=== PATIENT | female | born 1940 | race Caucasian/White ===

== ENCOUNTER 2017-02-21 07:29 | Day surgery (SDC) | payer MEDICARE, OTHER ==
[~2017-02-21 07:29] MED LIST: Lactated Ringers 1,000 ML IV SCH; Lidocaine 1%/Sod Bicarbonate in NS 8.4% 1 ML Syringe PRN; Sodium Chloride 0.9% 10 ML Syringe FLUSH PRN
--- NOTE | 2017-02-21 07:54 | PCM.PREANE ---
Preanesthetic Assessment - Anesthesia/Transfusion/Family Hx Anesthesia History: No Prior Anesthesia Family History of Anesthesia Reaction: No Transfusion History: Prior Transfusion Without Reaction - Review of Systems General: No Symptoms Pulmonary: No Symptoms Cardiovascular: No Symptoms Gastrointestinal: No Symptoms Neurological: No Symptoms Other: Reports: None - Physical Assessment NPO Status Date: 02/20/17 NPO Status Time: 00:00 Pulse: 91 O2 Sat by Pulse Oximetry: 93 Respiratory Rate: 16 Blood Pressure: 146/77 Temperature: 37.1 C Height: 1.7 m Weight: 62.868 kg ASA Class: 3 Mental Status: Alert & Oriented x3 Airway Class: Mallampati = 1 Dentition: Reports: Dentures Thyro-Mental Finger Breadths: 3 Mouth Opening Finger Breadths: 3 ROM/Head Extension: Full Lungs: Clear to Auscultation, Normal Respiratory Effort, Decreased Breath Sounds Cardiovascular: Regular Rate, Regular Rhythm - Allergies Allergies/Adverse Reactions: Allergies Allergy/AdvReac Type Severity Reaction Status Date / Time doxycycline Allergy Severe Airway Verified 02/18/17 12:20 Tightness Latex, Natural Rubber Allergy Severe Rash Verified 02/18/17 12:20 levofloxacin [From Levaquin] Allergy Severe Airway Verified 02/18/17 12:20 Tightness budesonide [From Symbicort] Allergy Airway Verified 02/18/17 12:20 Tightness formoterol [From Symbicort] Allergy Airway Verified 02/18/17 12:20 Tightness codeine AdvReac Severe Hallucinati Verified 02/18/17 12:20 ons - Anesthesia Plan Pre-Op Medication Ordered: None - Acknowledgements Anesthesia Type Planned: MAC Pt an Appropriate Candidate for the Planned Anesthesia: Yes Alternatives and Risks of Anesthesia Discussed w Pt/Guardian: Yes Pt/Guardian Understands and Agrees with Anesthesia Plan: Yes PreAnesthesia Questionnaire HEENT History: Reports: Sinusitis, Other (See Below) Other HEENT History: dentures, glasses Cardiovascular History: Reports: Heart Failure, High Cholesterol, Hypertension, Other (See Below) Other Cardiovascular History: aortic valve disease, diastolic heart failure, vein leg stripping Respiratory History: Reports: Asthma, COPD Gastrointestinal History: Reports: GI Bleed, Other (See Below) Other Gastrointestinal History: GI bleed Genitourinary History: Reports: None 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 Allergy to latex - Past Surgical History Head Surgeries/Procedures: Reports: None HEENT Surgical History: Reports: Naso-Sinus Surgery, Tonsillectomy Cardiovascular Surgical History: Reports: None Respiratory Surgical History: Reports: None GI Surgical History: Reports: Appendectomy, Colonoscopy Female Surgical History: Reports: Hysterectomy Other Female Surgeries/Procedures: Prior to hysterectomy patient has a mesh to hold uterus in place. 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 Musculoskeletal Surgical History: Reports: None Oncologic Surgical History: Reports: None Dermatological Surgical History: Reports: None - SUBSTANCE USE Smoking Status *Q: Current Every Day Smoker Tobacco Use Within Last Twelve Months: Cigarettes Second Hand Smoke Exposure: No Number of Drinks Per Day: 2 Recreational Drug Use History: No - HOME MEDS Home Medications: Home Meds Albuterol [Ventolin HFA] 2 puff INH QID 02/12/15 [History] Calcium Carbonate/Vitamin D3 [Calcium 600 + Vit D Tablet] 1 each PO BID [History] Cyanocobalamin (Vitamin B12) [Vitamin B12] 500 mcg PO BEDTIME 02/12/15 [History] Fluticasone/Salmeterol [Advair Diskus 250-50] 1 puff PO BID 02/12/15 [History] Furosemide [Lasix] 40 mg PO DAILY 02/12/15 [History] Pravastatin [Pravachol] 40 mg PO DAILY 02/12/15 [History] Ascorbate Calcium [Vitamin C] 500 mg PO DAILY 02/18/17 [History] Denosumab [Prolia] 1 applic SQ ASDIRECTED 02/18/17 [History] Estradiol [Vagifem] 10 mcg VAG ASDIRECTED 02/18/17 [History] diphenhydrAMINE [Benadryl] 25 mg PO BEDTIME PRN 02/18/17 [History] - CURRENT (IN HOUSE) MEDS Current Meds: Current Medications Lactated Ringer's (Ringers, Lactated) 1,000 mls @ 125 mls/hr IV ASDIRECTED MICHELA Stop: 02/21/17 23:00 Lidocaine/Sodium Bicarbonate (Buffered Lidocaine 1% In Ns 8.4%) 0.25 ml .XX ONETIME PRN PRN Reason: Prior to IV Start Stop: 02/21/17 18:00 Sodium Chloride (Saline Flush) 10 ml FLUSH ASDIRECTED PRN PRN Reason: Keep Vein Open Stop: 02/21/17 18:00
[2017-02-21] MEDS ORDERED: Propofol 200 MG/20 ML SDV ONE ×2 (08:24→09:34)
[2017-02-21] MEDS ORDERED: fentaNYL 100 MCG/2 ML SDV ONE (08:24)
[2017-02-21] MEDS ORDERED: Lidocaine 1% 4 ML ONE (08:24)
--- NOTE | 2017-02-21 09:38 | PCM.OPNOTE ---
- General Post-Op/Procedure Note Date of Surgery/Procedure: 02/21/17 Operative Procedure(s): colonoscopy to cecum Findings: see op note Pre Op Diagnosis: rectal bleeding Post-Op Diagnosis: Same Anesthesia Technique: MAC Primary Surgeon: Varun Jackson EBL in mLs: 0 Complications: None Condition: Good
[2017-02-21 11:11] VITALS: BP 124/70
--- NOTE | 2017-02-22 07:27 | OR ---
DATE OF OPERATION: 02/21/2017 SURGEON: Varun Jackson MD PREOPERATIVE DIAGNOSIS: Rectal bleeding. POSTOPERATIVE DIAGNOSIS: Rectal bleeding. OPERATION PERFORMED: Colonoscopy to cecum. FINDINGS: Occasional sigmoid diverticulosis, internal hemorrhoids were noted as likely source of her bleeding. There were no angiodysplasias, neoplasias, large tumor masses, ulcerations, or pathology in the cecum. ANESTHESIA: Procedure done under IV sedation. DESCRIPTION OF PROCEDURE: The patient was taken to the endoscopy room, placed in the supine position, connected to monitoring equipment, and given IV sedation. The patient was then placed in left lateral position. Perianal area showed some pouting hemorrhoids and external hemorrhoid tags. Rectal exam showed good sphincter tone. A video Olympus colonoscope was then introduced into the rectum and threaded up without problem to the cecum, where the appendicular orifice and ileocecal valve were noted. There were no acute pathology or ulcerations noted in the cecum. The prep was excellent throughout the colon. [place] cleansing score grade A. The scope was slowly withdrawn showing the cecum, ascending colon, transverse colon, descending colon, sigmoid colon, and rectum. Retroflexed view was done showing internal hemorrhoids. Occasional diverticulum were noted in the sigmoid. The patient tolerated the procedure and was sent to recovery room in a stable condition. She will be followed up as needed by her family doctor. ESTIMATED BLOOD LOSS: MMODAL /[id number]
== END 2017-02-21 10:10 | disposition home or self-care (01) ==
LOC: JD.SDS 07:29
PROVIDERS: ATTEND Surgery
DX: K57.30 Diverticulosis of large intestine without perforation or abscess without bleeding (principal); K64.8 Other hemorrhoids; I11.0 Hypertensive heart disease with heart failure; I50.30 Unspecified diastolic (congestive) heart failure; J44.9 Chronic obstructive pulmonary disease, unspecified; E78.00 Pure hypercholesterolemia, unspecified; G25.81 Restless legs syndrome; F17.210 Nicotine dependence, cigarettes, uncomplicated; Z90.49 Acquired absence of other specified parts of digestive tract; Z90.710 Acquired absence of both cervix and uterus; Z90.89 Acquired absence of other organs; Z98.890 Other specified postprocedural states; Z79.899 Other long term (current) drug therapy; Z88.1 Allergy status to other antibiotic agents; Z88.5 Allergy status to narcotic agent; Z88.8 Allergy status to other drugs, medicaments and biological substances; Z91.040 Latex allergy status
CPT/HCPCS: 45378; J3010; J7120; 00810; J2704

== ENCOUNTER 2019-02-07 10:21 | Inpatient (IN) | payer MEDICARE, OTHER ==
[2019-02-07] MEDS ORDERED: Ondansetron 4 MG Tab.DIS PO ONE (12:47)
[2019-02-07] MEDS ORDERED: HYDROmorphone 0.5 MG/0.5 ML Syringe IM ONE (12:47)
--- NOTE | 2019-02-07 13:14 | EDM.PDOC ---
ED HPI GENERAL MEDICAL PROBLEM - General Chief Complaint: Lower Extremity Injury/Pain Stated Complaint: RT FOOT SWOLLEN Time Seen by Provider: 02/07/19 12:26 Source of Information: Reports: Patient, RN Notes Reviewed History Limitations: Reports: No Limitations - History of Present Illness INITIAL COMMENTS - FREE TEXT/NARRATIVE: Patient is a 78-year-old female who presents to the ED for the evaluation of right foot swelling and redness. 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 She is also doctoring with an infectious disease doctor for a cough as well, the patient is on ciprofloxacin 500 mg for this cough. The self pay specialist told her that if she did have some sort of cellulitis that the Cipro should have taken care of the infection. The patient states that the pain started in her heel, but has now progressed into the foot and is extending up the ankle. There is some mild skin breakdown noted on the dorsum of the right foot with 2+ pitting edema. The patient's right foot is visibly more swollen and red than the left foot. Pulses are palpable, however faint on the right foot. The patient states she took 1000 mg of Tylenol at 11 AM, and this is not providing much relief. Patient denies any trauma to the ankle or foot. Right Foot Pain Score (Numeric/FACES): 10 - Related Data Allergies Allergy/AdvReac Type Severity Reaction Status Date / Time doxycycline Allergy Severe Airway Verified 02/07/19 11:08 Tightness Latex, Natural Rubber Allergy Severe Rash Verified 02/07/19 11:08 levofloxacin [From Levaquin] Allergy Severe Airway Verified 02/07/19 11:08 Tightness budesonide [From Symbicort] Allergy Airway Verified 02/07/19 11:08 Tightness formoterol [From Symbicort] Allergy Airway Verified 02/07/19 11:08 Tightness codeine AdvReac Severe Hallucinati Verified 02/07/19 11:08 ons Home Meds: Home Meds Albuterol [Ventolin HFA] 2 puff INH QID 02/12/15 [History] Calcium Carbonate/Vitamin D3 [Calcium 600 + Vit D Tablet] 1 each PO BID [History] Cyanocobalamin (Vitamin B12) [Vitamin B12] 500 mcg PO BEDTIME 02/12/15 [History] Fluticasone/Salmeterol [Advair Diskus 250-50] 1 puff PO BID 02/12/15 [History] Furosemide [Lasix] 40 mg PO DAILY 02/12/15 [History] Pravastatin [Pravachol] 40 mg PO DAILY 02/12/15 [History] Ascorbate Calcium [Vitamin C] 500 mg PO DAILY 02/18/17 [History] Denosumab [Prolia] 1 injection SQ ASDIRECTED 02/18/17 [History] Estradiol [Vagifem] 10 mcg VAG ASDIRECTED 02/18/17 [History] diphenhydrAMINE [Benadryl] 25 mg PO BEDTIME PRN 02/18/17 [History] Ciprofloxacin HCl [Cipro] 500 mg PO BID 02/21/17 [History] Past Medical History HEENT History: Reports: Sinusitis, Other (See Below) Other HEENT History: dentures, glasses Cardiovascular History: Reports: Heart Failure, High Cholesterol, Hypertension, Other (See Below) Other Cardiovascular History: aortic valve disease, diastolic heart failure, vein leg stripping Respiratory History: Reports: Asthma, COPD Gastrointestinal History: Reports: GI Bleed, Other (See Below) Other Gastrointestinal History: GI bleed Genitourinary History: Reports: None 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 Allergy to latex - Past Surgical History Head Surgeries/Procedures: Reports: None HEENT Surgical History: Reports: Naso-Sinus Surgery, Tonsillectomy Cardiovascular Surgical History: Reports: None Respiratory Surgical History: Reports: None GI Surgical History: Reports: Appendectomy, Colonoscopy Female Surgical History: Reports: Hysterectomy Other Female Surgeries/Procedures: Prior to hysterectomy patient has a mesh to hold uterus in place. 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 Musculoskeletal Surgical History: Reports: None Oncologic Surgical History: Reports: None Dermatological Surgical History: Reports: None Social & Family History - Tobacco Use Smoking Status *Q: Former Smoker Years of Tobacco use: 60 Used Tobacco, but Quit: Yes Month/Year Tobacco Last Used: 12/14/2018 - Caffeine Use Caffeine Use: Reports: Coffee - Recreational Drug Use Recreational Drug Use: No Review of Systems - Review of Systems Review Of Systems: See Below Constitutional: Reports: No Symptoms Eyes: Reports: No Symptoms Ears: Reports: No Symptoms Nose: Reports: No Symptoms Mouth/Throat: Reports: No Symptoms Respiratory: Reports: No Symptoms Cardiovascular: Reports: No Symptoms GI/Abdominal: Reports: No Symptoms Genitourinary: Reports: No Symptoms Musculoskeletal: Reports: Foot Pain (Right foot pain/redness/swelling) Skin: Reports: Erythema (Right foot below ankle) Neurological: Denies: Numbness, Tingling Psychiatric: Reports: No Symptoms ED EXAM, GENERAL - Physical Exam Exam: See Below Exam Limited By: No Limitations General Appearance: Alert, WD/WN, No Apparent Distress Throat/Mouth: Normal Inspection, Normal Lips, Normal Teeth, Normal Gums, Normal Oropharynx, Normal Voice, No Airway Compromise Head: Atraumatic, Normocephalic Respiratory/Chest: No Respiratory Distress, Lungs Clear, Normal Breath Sounds, No Accessory Muscle Use, Chest Non-Tender Cardiovascular: Normal Peripheral Pulses, Regular Rate, Rhythm, No Murmur Peripheral Pulses: 2+: Dorsalis Pedis (R), 3+: Dorsalis Pedis (L) GI/Abdominal: Normal Bowel Sounds, Soft, Non-Tender, No Distention, No Mass Extremities: Normal Range of Motion, Normal Capillary Refill, Pedal Edema (2+ pitting edema to dorsum of R foot), Increased Warmth (R foot), Redness (Entire R foot extending to ankle) Neurological: Alert, Oriented, Normal Cognition, No Motor/Sensory Deficits Psychiatric: Normal Affect, Normal Mood Skin Exam: Warm, Dry, No Rash, Erythema (entire right foot extending to ankle), Increased Warmth (entire right foot extending to ankle) Course - Vital Signs Last Recorded V/S: Last Vital Signs Temp 97.9 F 02/07/19 11:07 Pulse 83 02/07/19 11:07 Resp 20 02/07/19 11:07 BP 165/88 H 02/07/19 11:07 Pulse Ox 81 L 02/07/19 13:44 - Orders/Labs/Meds Orders: Active Orders 24 hr Category Date Time Status Oxygen Therapy [RC] ASDIRECTED Care 02/07/19 13:44 Active Labs: Laboratory Tests 02/07/19 02/07/19 02/07/19 Range/Units 12:31 12:31 12:31 WBC 9.26 (3.98-10.04) K/mm3 RBC 4.07 (3.98-5.22) M/mm3 Hgb 12.1 (11.2-15.7) gm/dl Hct 37.3 (34.1-44.9) % MCV 91.6 (79.4-94.8) fl MCH 29.7 (25.6-32.2) pg MCHC 32.4 (32.2-35.5) g/dl RDW Std Deviation 43.3 (36.4-46.3) fL Plt Count 423 H (182-369) K/mm3 MPV 9.5 (9.4-12.3) fl Neutrophils % (Manual) 66 H (40-60) % Band Neutrophils % 0 (0-10) % Lymphocytes % (Manual) 21 (20-40) % Atypical Lymphs % 0 % Monocytes % (Manual) 10 (2-10) % Eosinophils % (Manual) 1 (0.7-5.8) % Basophils % (Manual) 2 H (0.1-1.2) Platelet Estimate Increased Hypochromasia 1+ slight Anisocytosis 1+ slight RBC Morph Comment Abnormal Sodium 130 L (136-145) mEq/L Potassium 4.5 (3.5-5.1) mEq/L Chloride 94 L (98-107) mEq/L Carbon Dioxide 27 (21-32) mEq/L Anion Gap 13.5 (5-15) BUN 11 (7-18) mg/dL Creatinine 0.9 (0.55-1.02) mg/dL Est Cr Clr Drug Dosing 48.23 mL/min Estimated GFR (MDRD) > 60 (>60) mL/min BUN/Creatinine Ratio 12.2 L (14-18) Glucose 92 (83-115) mg/dL Uric Acid (2.6-6.0) mg/dL Calcium 9.1 (8.5-10.1) mg/dL Total Bilirubin 0.2 (0.2-1.0) mg/dL AST 21 (15-37) U/L ALT 21 (14-59) U/L Alkaline Phosphatase 72 (46-116) U/L C-Reactive Protein 0.3 (<1.0) mg/dL Total Protein 8.0 (6.4-8.2) g/dl Albumin 3.6 (3.4-5.0) g/dl Globulin 4.4 gm/dL Albumin/Globulin Ratio 0.8 L (1-2) 02/07/19 Range/Units 12:31 WBC (3.98-10.04) K/mm3 RBC (3.98-5.22) M/mm3 Hgb (11.2-15.7) gm/dl Hct (34.1-44.9) % MCV (79.4-94.8) fl MCH (25.6-32.2) pg MCHC (32.2-35.5) g/dl RDW Std Deviation (36.4-46.3) fL Plt Count (182-369) K/mm3 MPV (9.4-12.3) fl Neutrophils % (Manual) (40-60) % Band Neutrophils % (0-10) % Lymphocytes % (Manual) (20-40) % Atypical Lymphs % % Monocytes % (Manual) (2-10) % Eosinophils % (Manual) (0.7-5.8) % Basophils % (Manual) (0.1-1.2) Platelet Estimate Hypochromasia Anisocytosis RBC Morph Comment Sodium (136-145) mEq/L Potassium (3.5-5.1) mEq/L Chloride (98-107) mEq/L Carbon Dioxide (21-32) mEq/L Anion Gap (5-15) BUN (7-18) mg/dL Creatinine (0.55-1.02) mg/dL Est Cr Clr Drug Dosing mL/min Estimated GFR (MDRD) (>60) mL/min BUN/Creatinine Ratio (14-18) Glucose (83-115) mg/dL Uric Acid 3.1 (2.6-6.0) mg/dL Calcium (8.5-10.1) mg/dL Total Bilirubin (0.2-1.0) mg/dL AST (15-37) U/L ALT (14-59) U/L Alkaline Phosphatase (46-116) U/L C-Reactive Protein (<1.0) mg/dL Total Protein (6.4-8.2) g/dl Albumin (3.4-5.0) g/dl Globulin gm/dL Albumin/Globulin Ratio (1-2) Meds: Medications Discontinued Medications Generic Name Dose Route Start Last Admin Trade Name Bee PRN Reason Stop Dose Admin Hydromorphone HCl 0.5 mg 02/07/19 12:47 02/07/19 12:55 Dilaudid IM 02/07/19 12:48 0.5 mg ONETIME ONE Administration Ondansetron HCl 4 mg 02/07/19 12:47 02/07/19 12:54 Zofran Odt PO 02/07/19 12:48 4 mg ONETIME ONE Administration - Re-Assessments/Exams Free Text/Narrative Re-Assessment/Exam: 02/07/19 13:20 Patient presents to the ED for evaluation of a red swollen right foot. Basic labs were obtained, CBC, CMP, uric acid, 0.5 mg Dilaudid for initial pain relief with 4 mg Zofran for anticipated nausea relief due to the Dilaudid use. Ultrasound of the right foot will also be obtained to try to further delineate symptoms. 02/07/19 15:21 Patient's labs have returned, white blood cell count is within normal limits, there are no acute abnormalities on the metabolic panel, CRP is normal, uric acid was is in normal limits, and the ultrasound shows no evidence of a DVT within the right lower extremity. At this time I did discuss the case with Dr. White and had him evaluate the patient, He believes this is likely due to cellulitis, and recommends Hospital admission for IV antibiotics. I will try to call Dr. Milton for hospital admission. 02/07/19 15:48 Dr. Milton was made aware of this patient and accepts for observation at this time, did discuss antibiotic options with Dr. White and will start on gram cefoxitin and vancomycin with pharmacy to dose. Departure - Departure Time of Disposition: 15:47 Disposition: Refer to Observation Condition: Fair Clinical Impression: Cellulitis Qualifiers: Site of cellulitis: extremity Site of cellulitis of extremity: lower extremity Laterality: right Qualified Code(s): L03.115 - Cellulitis of right lower limb - Discharge Information *PRESCRIPTION DRUG MONITORING PROGRAM REVIEWED*: No *COPY OF PRESCRIPTION DRUG MONITORING REPORT IN PATIENT TETO: No Referrals: Quique Meneses MD [Primary Care Provider] - Forms: ED Department Discharge - My Orders Last 24 Hours: My Active Orders 02/07/19 13:44 Oxygen Therapy [RC] ASDIRECTED - Assessment/Plan Last 24 Hours: My Active Orders 02/07/19 13:44 Oxygen Therapy [RC] ASDIRECTED
--- NOTE | 2019-02-07 14:54 | US ---
Right lower extremity deep venous ultrasound: Duplex and color flow imaging was obtained of the right common femoral, proximal greater saphenous, superficial femoral, popliteal, posterior tibial and peroneal veins. Left common femoral vein was also evaluated. Findings: Normal phasic flow, augmentation and compression are seen. Impression: 1. No evidence of deep venous thrombosis within the right lower extremity or within the left common femoral vein. Diagnostic code #1
[2019-02-07] MEDS ORDERED: Sodium Chloride 0.9% 10 ML Syringe FLUSH PRN (15:32)
[2019-02-07] MEDS: cefOXitin 1 GM in Premix Bag 1 BAG IV SCH (16:22)
--- NOTE | 2019-02-07 18:14 | PCM.HP.2 ---
H&P History of Present Illness - General Date of Service: 02/07/19 Admit Problem/Dx: Admission Diagnosis/Problem Admission Diagnosis/Problem Cellulitis Source of Information: Patient, Old Records, Provider, RN Notes Reviewed History Limitations: Reports: No Limitations - History of Present Illness Initial Comments - Free Text/Narative: This is a 78 yo elderly white female with past medical hx/o Seizure Disorder, Anxiety, Depression and Hx/o Obesity who comes in for worsening right foot cellulitis that started a couple of weeks ago. She states she was initially seen by her PCP for right elbow rash and prescribed with oral Cipro 250 mg po BID 3 weeks ago with no issues with her right foot at that time. A week after that, she noticed a lesion at the back of her right foot followed by redness and edema which slowly spread to her entire foot (dorsal aspect). She was seen and evaluated by Podiatry this past but no abnormal findings found. In fact, she was told it was healing and to continue conservative management. Come Tuesday, she went to [place] to see ID and her Cipro was increased to 500 mg po BID. However she felt no improvement. Hence, she presented to the hospital for further evaluation and management. Her initial work up in ED is unremarkable. She reports subjective fever or chills. She denies any GI/ issues. Patient is primarily coming in for treatment of cellulitis. Right Foot Pain Score (Numeric/FACES): 10 - Related Data Allergies/Adverse Reactions: Allergies Allergy/AdvReac Type Severity Reaction Status Date / Time doxycycline Allergy Severe Airway Verified 02/07/19 11:08 Tightness Latex, Natural Rubber Allergy Severe Rash Verified 02/07/19 11:08 levofloxacin [From Levaquin] Allergy Severe Airway Verified 02/07/19 11:08 Tightness bacitracin Allergy Hives Verified 02/07/19 18:37 [From Neosporin ([id number])] budesonide [From Symbicort] Allergy Airway Verified 02/07/19 11:08 Tightness formoterol [From Symbicort] Allergy Airway Verified 02/07/19 11:08 Tightness neomycin Allergy Hives Verified 02/07/19 18:37 [From Neosporin ([id number])] polymyxin B Allergy Hives Verified 02/07/19 18:37 [From Neosporin ([id number])] codeine AdvReac Severe Hallucinati Verified 02/07/19 11:08 ons Home Medications: Home Meds Albuterol [Ventolin HFA] 2 puff INH QID 02/12/15 [History] Calcium Carbonate/Vitamin D3 [Calcium 600 + Vit D Tablet] 1 each PO BID [History] Cyanocobalamin (Vitamin B12) [Vitamin B12] 500 mcg PO BEDTIME 02/12/15 [History] Fluticasone/Salmeterol [Advair Diskus 250-50] 1 puff PO BID 02/12/15 [History] Furosemide [Lasix] 40 mg PO DAILY 02/12/15 [History] Pravastatin [Pravachol] 40 mg PO DAILY 02/12/15 [History] Ascorbate Calcium [Vitamin C] 500 mg PO DAILY 02/18/17 [History] Denosumab [Prolia] 1 injection SQ ASDIRECTED 02/18/17 [History] Estradiol [Vagifem] 10 mcg VAG ASDIRECTED 02/18/17 [History] diphenhydrAMINE [Benadryl] 25 mg PO BEDTIME PRN 02/18/17 [History] Ciprofloxacin HCl [Cipro] 500 mg PO BID 02/21/17 [History] Aspirin 81 mg PO BEDTIME 02/07/19 [History] Glucosamine/Chondro Gonzales A [Cosamin DS] 2 each PO 02/07/19 [History] Non-Formulary Medication [NF Drug] 2 each PO BEDTIME 02/07/19 [History] Past Medical History HEENT History: Reports: Sinusitis, Other (See Below) Other HEENT History: dentures, glasses Cardiovascular History: Reports: Heart Failure, High Cholesterol, Hypertension, Other (See Below) Other Cardiovascular History: aortic valve disease, diastolic heart failure, vein leg stripping Respiratory History: Reports: Asthma, COPD Gastrointestinal History: Reports: GI Bleed, Other (See Below) Other Gastrointestinal History: GI bleed Genitourinary History: Reports: None CHILD ADVOCATE History: Reports: Musculoskeletal History: Reports: Other (See Below) Other Musculoskeletal History: osteopenia, restless leg syndrome Neurological History: Reports: None Psychiatric History: Reports: None Endocrine/Metabolic History: Reports: None Hematologic History: Reports: None Immunologic History: Reports: None Oncologic (Cancer) History: Reports: None Other Dermatologic History: Rash/cellulitis in BLE. Allergy to latex - Past Surgical History Head Surgeries/Procedures: Reports: None HEENT Surgical History: Reports: Naso-Sinus Surgery, Tonsillectomy Cardiovascular Surgical History: Reports: None Respiratory Surgical History: Reports: None GI Surgical History: Reports: Appendectomy, Colonoscopy Female Surgical History: Reports: Hysterectomy Other Female Surgeries/Procedures: Prior to hysterectomy patient has a mesh to hold uterus in place. 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 Musculoskeletal Surgical History: Reports: None Oncologic Surgical History: Reports: None Dermatological Surgical History: Reports: None Social & Family History - Tobacco Use Smoking Status *Q: Former Smoker Years of Tobacco use: 60 Used Tobacco, but Quit: Yes Month/Year Tobacco Last Used: 12/14/2018 - Caffeine Use Caffeine Use: Reports: Coffee - Recreational Drug Use Recreational Drug Use: No H&P Review of Systems - Review of Systems: Review Of Systems: See Below General: Reports: Fever, Chills. Denies: Malaise, Weakness, Fatigue HEENT: Reports: No Symptoms Pulmonary: Denies: Shortness of Breath Cardiovascular: Denies: Chest Pain, Dyspnea on Exertion, Edema, Lightheadedness Gastrointestinal: Denies: Abdominal Pain, Nausea, Vomiting Genitourinary: Reports: No Symptoms Musculoskeletal: Denies: Neck Pain, Arm Pain, Back Pain, Foot Pain, Joint Pain, Joint Swelling, Muscle Stiffness Skin: Reports: Rash (near elbow on left arm), Other (right foor erythema and edema ) Psychiatric: Denies: Mood Lability, Anxiety, Cravings, Hallucinations, Suicidal Ideation, Hallucinations (Auditory), Hallucinations (Visual) Neurological: Denies: Dizziness, Difficulty Walking, Weakness, Gait Disturbance Hematologic/Lymphatic: Reports: No Symptoms Immunologic: Reports: No Symptoms Exam - Exam Exam: See Below - Vital Signs Vital Signs: Last Vital Signs Temp 36.6 C 02/07/19 11:07 Pulse 83 02/07/19 11:07 Resp 20 02/07/19 11:07 BP 165/88 H 02/07/19 11:07 Pulse Ox 81 L 02/07/19 13:44 Weight: 62.596 kg - Exam General: Alert, Oriented, Cooperative, Mild Distress HEENT: Conjunctiva Clear, EACs Clear, EOMI, Hearing Intact, Mucosa Moist & [place] , Nares Patent, Normal Nasal Septum, Posterior Pharynx Clear, Pupils Equal, Pupils Reactive Neck: Supple, Trachea Midline Lungs: Clear to Auscultation, Normal Respiratory Effort Cardiovascular: Regular Rate, Regular Rhythm GI/Abdominal Exam: Normal Bowel Sounds, Soft, Non-Tender, No Distention, No Abnormal Bruit, No Mass, Pelvis Stable (Female) Exam: Deferred Rectal (Female) Exam: Deferred Back Exam: Normal Inspection, Full Range of Motion Extremities: Normal Inspection, Normal Range of Motion, Non-Tender, Normal Capillary Refill, Slow Capillary Refill, Limited Range of Motion, Increased Warmth (on right foot), Redness (right foot and right near elbow). No: Pedal Edema Peripheral Pulses: 1+: Posterior Tibial (R), Dorsalis Pedis (R), 2+: Posterior Tibial (L), Dorsalis Pedis (L) Skin: Warm, Dry, Intact Skin Alteration Location (Drawings Not To Scale): 1 - dried scabs. warm to the touch. red and mildly edematous. non-tender to palpation 2 - near elbow: mildly red, no edema, and not warm to the touch Neuro Extensive - Mental Status: Oriented x3, Normal Cognition, Memory Intact Neuro Extensive - Motor, Sensory, Reflexes: CN II-XII Intact, Normal Gait Psychiatric: Alert, Normal Affect, Normal Mood - Patient Data Lab Results Last 24 hrs: Laboratory Results - last 24 hr 02/07/19 02/07/19 02/07/19 Range/Units 12:31 12:31 12:31 WBC 9.26 (3.98-10.04) K/mm3 RBC 4.07 (3.98-5.22) M/mm3 Hgb 12.1 (11.2-15.7) gm/dl Hct 37.3 (34.1-44.9) % MCV 91.6 (79.4-94.8) fl MCH 29.7 (25.6-32.2) pg MCHC 32.4 (32.2-35.5) g/dl RDW Std Deviation 43.3 (36.4-46.3) fL Plt Count 423 H (182-369) K/mm3 MPV 9.5 (9.4-12.3) fl Neutrophils % (Manual) 66 H (40-60) % Band Neutrophils % 0 (0-10) % Lymphocytes % (Manual) 21 (20-40) % Atypical Lymphs % 0 % Monocytes % (Manual) 10 (2-10) % Eosinophils % (Manual) 1 (0.7-5.8) % Basophils % (Manual) 2 H (0.1-1.2) Platelet Estimate Increased Hypochromasia 1+ slight Anisocytosis 1+ slight RBC Morph Comment Abnormal Sodium 130 L (136-145) mEq/L Potassium 4.5 (3.5-5.1) mEq/L Chloride 94 L (98-107) mEq/L Carbon Dioxide 27 (21-32) mEq/L Anion Gap 13.5 (5-15) BUN 11 (7-18) mg/dL Creatinine 0.9 (0.55-1.02) mg/dL Est Cr Clr Drug Dosing 48.23 mL/min Estimated GFR (MDRD) > 60 (>60) mL/min BUN/Creatinine Ratio 12.2 L (14-18) Glucose 92 (83-115) mg/dL Uric Acid (2.6-6.0) mg/dL Calcium 9.1 (8.5-10.1) mg/dL Total Bilirubin 0.2 (0.2-1.0) mg/dL AST 21 (15-37) U/L ALT 21 (14-59) U/L Alkaline Phosphatase 72 (46-116) U/L C-Reactive Protein 0.3 (<1.0) mg/dL Total Protein 8.0 (6.4-8.2) g/dl Albumin 3.6 (3.4-5.0) g/dl Globulin 4.4 gm/dL Albumin/Globulin Ratio 0.8 L (1-2) 02/07/19 Range/Units 12:31 WBC (3.98-10.04) K/mm3 RBC (3.98-5.22) M/mm3 Hgb (11.2-15.7) gm/dl Hct (34.1-44.9) % MCV (79.4-94.8) fl MCH (25.6-32.2) pg MCHC (32.2-35.5) g/dl RDW Std Deviation (36.4-46.3) fL Plt Count (182-369) K/mm3 MPV (9.4-12.3) fl Neutrophils % (Manual) (40-60) % Band Neutrophils % (0-10) % Lymphocytes % (Manual) (20-40) % Atypical Lymphs % % Monocytes % (Manual) (2-10) % Eosinophils % (Manual) (0.7-5.8) % Basophils % (Manual) (0.1-1.2) Platelet Estimate Hypochromasia Anisocytosis RBC Morph Comment Sodium (136-145) mEq/L Potassium (3.5-5.1) mEq/L Chloride (98-107) mEq/L Carbon Dioxide (21-32) mEq/L Anion Gap (5-15) BUN (7-18) mg/dL Creatinine (0.55-1.02) mg/dL Est Cr Clr Drug Dosing mL/min Estimated GFR (MDRD) (>60) mL/min BUN/Creatinine Ratio (14-18) Glucose (83-115) mg/dL Uric Acid 3.1 (2.6-6.0) mg/dL Calcium (8.5-10.1) mg/dL Total Bilirubin (0.2-1.0) mg/dL AST (15-37) U/L ALT (14-59) U/L Alkaline Phosphatase (46-116) U/L C-Reactive Protein (<1.0) mg/dL Total Protein (6.4-8.2) g/dl Albumin (3.4-5.0) g/dl Globulin gm/dL Albumin/Globulin Ratio (1-2) Result Diagrams: 02/13/19 08:25 02/13/19 08:25 Problem List Initiated/Reviewed/Updated: Yes Orders Last 24hrs: Active Orders 24 hr Category Date Time Status Admission Status [Patient Status] [ADT] Routine ADT 02/07/19 15:44 Active Oxygen Therapy [RC] ASDIRECTED Care 02/07/19 13:44 Active Oxygen Therapy, ED [RC] ASDIRECTED Care 02/07/19 15:49 Active Peripheral IV Care [RC] . DIRECTED Care 02/07/19 15:32 Active VANCOMYCIN TROUGH [CHEM] Timed Lab 02/10/19 15:30 Ordered Pharmacy to Dose - Vancomycin Med 02/07/19 16:00 Pending 1 dose .XX ASDIRECTED Sodium Chloride 0.9% [Saline Flush] Med 02/07/19 15:32 Active 10 ml FLUSH ASDIRECTED PRN Vancomycin 1 gm Med 02/07/19 16:00 Active Sodium Chloride 0.9% [Normal Saline] 250 ml IV Q24H cefOXitin [Mefoxin in Dextrose,Iso-Osm 1 GM/50 ML] 1 gm Med 02/07/19 16:00 Active Premix Bag 1 bag IV Q8H Peripheral IV Insertion Adult [OM.PC] Stat Oth 02/07/19 15:32 Ordered Medication Orders Cefoxitin Sodium 1 gm/ Premix 50 mls @ 100 mls/hr IV Q8H [facility] Last Admin: 02/07/19 16:22 Dose: 100 mls/hr Vancomycin HCl 1 gm/ Sodium (Chloride) 250 mls @ 250 mls/hr IV Q24H [facility] Last Admin: 02/07/19 16:52 Dose: 250 mls/hr Sodium Chloride (Saline Flush) 10 ml FLUSH ASDIRECTED PRN PRN Reason: Keep Vein Open Last Admin: 02/07/19 17:00 Dose: 10 ml Vancomycin HCl (Pharmacy To Dose - Vancomycin) 1 dose .XX ASDIRECTED [facility] Assessment/Plan Comment:: Assessment: Acute: SSTI Right Foot - Lesion - Started 2 weeks ago already on Cipro 250 mg po BID - Saw Dr. Vasquez with negative x-rays, was told to keep it moist and elevated foot - Went to [place] Tuesday to see ID and her Cipro was increased to 500 mg po BID - Comes back with worsening erythema and edema - She is not immuno-suppressed - Duplex U/S: negative for blood clot - IV ATB with GP coverage Left Near Elbow Rash - Started 3 weeks ago - Healing well Chronic: Seizure Disorder, Anxiety, Depression and Hx/o Obesity Plan: Admit to OBS Resume Home Meds Routine AM Labs DVT/GI Prophylaxis Fall Precautions IV Antibiotics / for d/c planning Code status: 1 Additional orders as above - Mortality Measure Prognosis:: Good
[2019-02-07] MEDS ORDERED: Albuterol/Ipratropium 3.0-0.5 MG/3 ML Neb Soln NEB PRN (18:56)
[2019-02-07] MEDS ORDERED: Promethazine 6.25 MG in Sodium Chloride 0.9% 50 ML IV PRN (18:56)
[2019-02-07] MEDS ORDERED: HYDROmorphone 0.5 MG/0.5 ML Syringe IVPUSH PRN (18:56)
[2019-02-07] MEDS ORDERED: Temazepam 7.5 MG Cap PO PRN (18:56)
[2019-02-07] MEDS ORDERED: Docusate Sodium 100 MG Cap PO PRN (18:56)
[2019-02-07] MEDS ORDERED: Bisacodyl 5 MG Tab PO PRN (18:56)
[2019-02-07] MEDS ORDERED: ESTRADIOL 10 MCG VAG SCH (19:00)
[2019-02-07] MEDS ORDERED: DENOSUMAB SQ SCH (19:00)
[2019-02-07] MEDS ORDERED: diphenhydrAMINE 25 MG Cap PO PRN (19:43)
[2019-02-07] MEDS: Calcium Carbonate/Vitamin D3 600 MG-200 Units Tab PO SCH (20:44)
[2019-02-07] MEDS: Cyanocobalamin (Vitamin B12) 1,000 MCG Tab PO SCH (20:44)
[2019-02-07] MEDS ORDERED: PRAVASTATIN 40 MG PO SCH (21:00)
[2019-02-07] MEDS ORDERED: CHONDROITIN PO SCH (21:00)
[2019-02-07] MEDS ORDERED: GLUCOSAMINE PO SCH (21:00)
[2019-02-07] MEDS: VENTOLIN INH SCH (21:29)
[2019-02-07] MEDS: SALMETEROL PO SCH (21:29)
[2019-02-07] MEDS: FLUTICASONE PO SCH (21:29)
[2019-02-07] MEDS: Aspirin 81 MG Tab.Chew PO SCH (22:43)
[2019-02-07] MEDS: Acetaminophen 325 MG Tab PO PRN (23:57)
[2019-02-08] MEDS: Acetaminophen 325 MG Tab PO PRN ×3 (04:58→19:00)
[2019-02-08] MEDS: Ketorolac 30 MG/ML SDV IV PRN (04:59)
[2019-02-08] MEDS: VENTOLIN INH SCH ×2 (05:24→09:34)
[2019-02-08] MEDS: cefOXitin 1 GM in Premix Bag 1 BAG IV SCH ×4 (08:39→15:15)
[2019-02-08] MEDS: Calcium Carbonate/Vitamin D3 600 MG-200 Units Tab PO SCH ×2 (08:46→20:54)
[2019-02-08] MEDS: Saccharomyces Boulardii (Probiotic) 250 MG Cap PO SCH (08:47)
[2019-02-08] MEDS: Furosemide 40 MG Tab PO SCH (08:48)
[2019-02-08] MEDS: Ascorbic Acid 500 MG Tab PO SCH (08:48)
[2019-02-08] MEDS: Acetaminophen/HYDROcodone 325-5 MG Tab PO PRN ×3 (09:03→20:54)
[2019-02-08] MEDS: FLUTICASONE PO SCH ×2 (09:34→20:34)
[2019-02-08] MEDS: SALMETEROL PO SCH ×2 (09:34→20:34)
[2019-02-08] MEDS: Albuterol/Ipratropium 3.0-0.5 MG/3 ML Neb Soln NEB SCH ×2 (15:42→20:33)
[2019-02-08] MEDS: Ondansetron 4 MG/2 ML SDV IV PRN (17:49)
--- NOTE | 2019-02-08 19:55 | PCM.PN ---
- General Info Date of Service: 02/08/19 Admission Dx/Problem (Free Text): Admission Diagnosis/Problem Admission Diagnosis/Problem Cellulitis Subjective Update: Patient states that she is feeling better. Pain is reduced in the right foot as well as swelling and redness. - Review of Systems General: Reports: No Symptoms HEENT: Reports: No Symptoms Pulmonary: Reports: No Symptoms Cardiovascular: Reports: No Symptoms Gastrointestinal: Reports: No Symptoms Skin: Reports: Other (Right foot redness and swelling) - Patient Data Vitals - Most Recent: Last Vital Signs Temp 97.9 F 02/08/19 16:03 Pulse 93 02/08/19 16:03 Resp 16 02/08/19 16:03 BP 126/88 02/08/19 16:03 Pulse Ox 95 02/08/19 16:03 Weight - Most Recent: 138 lb I&O - Last 24 Hours: Intake & Output 02/08/19 02/08/19 02/08/19 06:59 14:59 22:59 Intake Total 900 Output Total 1200 Balance -300 Lab Results Last 24 Hours: Laboratory Results - last 24 hr 02/08/19 02/08/19 Range/Units 05:45 05:45 WBC 8.10 (3.98-10.04) K/mm3 RBC 3.66 L (3.98-5.22) M/mm3 Hgb 10.8 L (11.2-15.7) gm/dl Hct 34.0 L (34.1-44.9) % MCV 92.9 (79.4-94.8) fl MCH 29.5 (25.6-32.2) pg MCHC 31.8 L (32.2-35.5) g/dl RDW Std Deviation 44.8 (36.4-46.3) fL Plt Count 379 H (182-369) K/mm3 MPV 9.4 (9.4-12.3) fl Neut % (Auto) 54.6 (34.0-71.1) % Lymph % (Auto) 25.6 (19.3-51.7) % [place] % (Auto) 11.1 (4.7-12.5) % Eos % (Auto) 7.4 H (0.7-5.8) Baso % (Auto) 1.2 (0.1-1.2) % Neut # (Auto) 4.42 (1.56-6.13) K/mm3 Lymph # (Auto) 2.07 (1.18-3.74) K/mm3 [place] # (Auto) 0.90 H (0.24-0.36) K/mm3 Eos # (Auto) 0.60 H (0.04-0.36) K/mm3 Baso # (Auto) 0.10 H (0.01-0.08) K/mm3 Manual Slide Review Not Reportable Sodium 131 L (136-145) mEq/L Potassium 4.6 (3.5-5.1) mEq/L Chloride 97 L (98-107) mEq/L Carbon Dioxide 28 (21-32) mEq/L Anion Gap 10.6 (5-15) BUN 11 (7-18) mg/dL Creatinine 1.1 H (0.55-1.02) mg/dL Est Cr Clr Drug Dosing 39.46 mL/min Estimated GFR (MDRD) 48 (>60) mL/min BUN/Creatinine Ratio 10.0 L (14-18) Glucose 100 (83-115) mg/dL Calcium 9.0 (8.5-10.1) mg/dL Magnesium 1.8 (1.8-2.4) mg/dl C-Reactive Protein 0.3 (<1.0) mg/dL Pawel Results Last 24 Hours: Microbiology 02/07/19 19:31 Aerobic Blood Culture - Preliminary Blood NO GROWTH AFTER 1 DAY Anaerobic Blood Culture - Preliminary NO GROWTH AFTER 1 DAY Med Orders - Current: Current Medications Acetaminophen (Tylenol) 650 mg PO Q4H PRN PRN Reason: Pain (Mild 1-3)/fever Last Admin: 02/08/19 19:00 Dose: 650 mg Hydrocodone Bitart/Acetaminophen ([place] 325-5 Mg) 1 tab PO Q4H PRN PRN Reason: Pain (moderate 4-6) Last Admin: 02/08/19 15:54 Dose: 1 tab Albuterol (Proventil Hfa) 0 gm INH QIDRT PRN PRN Reason: SOB/Wheezing Albuterol/Ipratropium (Duoneb 3.0-0.5 Mg/3 Ml) 3 ml NEB QIDRT MICHELA Last Admin: 02/08/19 15:42 Dose: 3 ml Ascorbic Acid (Vitamin C) 500 mg PO DAILY [facility] Last Admin: 02/08/19 08:48 Dose: 500 mg Aspirin (Aspirin) 81 mg PO BEDTIME [facility] Last Admin: 02/07/19 22:43 Dose: 81 mg Bisacodyl (Dulcolax) 5 mg PO DAILY PRN PRN Reason: Constipation Calcium Carbonate (Calcium Carbonate/Vitamin D 600 Mg-200 Unit) 1 tab PO BID [facility] Last Admin: 02/08/19 08:46 Dose: 1 tab Cyanocobalamin (Vitamin B12) 500 mcg PO BEDTIME [facility] Last Admin: 02/07/19 20:44 Dose: Not Given Diphenhydramine HCl (Benadryl) 25 mg PO BEDTIME PRN PRN Reason: INSOMNIA Docusate Sodium (Colace) 100 mg PO BID PRN PRN Reason: Constipation Furosemide (Lasix) 40 mg PO DAILY [facility] Last Admin: 02/08/19 08:48 Dose: 40 mg Hydromorphone HCl (Dilaudid) 0.25 mg IVPUSH Q2H PRN PRN Reason: Pain (severe 7-10) Cefoxitin Sodium 1 gm/ Premix 50 mls @ 100 mls/hr IV Q8H [facility] Last Admin: 02/08/19 15:15 Dose: 100 mls/hr Vancomycin HCl 1 gm/ Sodium (Chloride) 250 mls @ 250 mls/hr IV Q24H [facility] Last Admin: 02/08/19 15:58 Dose: 250 mls/hr Promethazine HCl 6.25 mg/ (Sodium Chloride) 50.25 mls @ 100 mls/hr IV Q6H PRN PRN Reason: Nausea/Vomiting Ketorolac Tromethamine (Toradol) 30 mg IV Q6H PRN PRN Reason: Pain (moderate 4-6) Last Admin: 02/08/19 04:59 Dose: 30 mg Glucosamine 1500 Mg/Chondroitin 1200 Mg* *Own Med 2 each PO BEDTIME [facility] Fluticasone/Salmeterol 100/50 McgOwn Med 1 puff PO BID [facility] Ondansetron HCl (Zofran) 4 mg IV Q6H PRN PRN Reason: Nausea/Vomiting Last Admin: 02/08/19 17:49 Dose: 4 mg Estradiol [Vagifem] (10 Mcg Ptom) 0 each VAG ASDIRECTED [facility] Saccharomyces Boulardii (Florastor) 250 mg PO DAILY [facility] Last Admin: 02/08/19 08:47 Dose: 250 mg Senna/Docusate Sodium (Senna Plus) 1 tab PO BID PRN PRN Reason: Constipation Simvastatin (Zocor) 20 mg PO BEDTIME [facility] Sodium Chloride (Saline Flush) 10 ml FLUSH ASDIRECTED PRN PRN Reason: Keep Vein Open Last Admin: 02/07/19 17:00 Dose: 10 ml Temazepam (Restoril) 7.5 mg PO BEDTIME PRN PRN Reason: Sleep Vancomycin HCl (Pharmacy To Dose - Vancomycin) 1 dose .XX ASDIRECTED PRN PRN Reason: RX TO DOSE VANCO Discontinued Medications Albuterol (Proventil Hfa) 0 gm INH QIDRT [facility] Last Admin: 02/08/19 09:34 Dose: 2 puff Albuterol/Ipratropium (Duoneb 3.0-0.5 Mg/3 Ml) 3 ml NEB Q4H PRN PRN Reason: Shortness Of Breath/wheezing Hydromorphone HCl (Dilaudid) 0.5 mg IM ONETIME ONE Stop: 02/07/19 12:48 Last Admin: 02/07/19 12:55 Dose: 0.5 mg Non-Formulary Medication (Denosumab [Prolia]) 1 injection SQ ASDIRECTED [facility] Fluticasone/Salmeterol 100/50 McgOwn Med 1 puff PO BID [facility] Last Admin: 02/08/19 09:34 Dose: 1 puff Pravastatin 40 Mg (Own Med) 40 mg PO BEDTIME [facility] Last Admin: 02/07/19 22:42 Dose: 40 mg Glucosamine 1500 Mg/Chondroitin 1200 Mg* *Own Med 2 each PO BEDTIME [facility] Last Admin: 02/07/19 22:42 Dose: 2 each Ondansetron HCl (Zofran Odt) 4 mg PO ONETIME ONE Stop: 02/07/19 12:48 Last Admin: 02/07/19 12:54 Dose: 4 mg - Exam Quality Assessment: No: Supplemental Oxygen General: Alert, Oriented HEENT: Pupils Equal, Pupils Reactive, EOMI, Mucous Membr. Moist/[place] Neck: Supple Lungs: Clear to Auscultation, Normal Respiratory Effort Cardiovascular: Regular Rate, Regular Rhythm GI/Abdominal Exam: Normal Bowel Sounds, Soft, Non-Tender, No Distention Extremities: Other (Right foot and swelling. There is a decreased redness from the inked markings on the leg.) - Problem List Review Problem List Initiated/Reviewed/Updated: Yes - My Orders Last 24 Hours: My Active Orders 02/08/19 10:51 Albuterol [Proventil HFA] 0 gm INH QIDRT PRN 02/08/19 10:53 Chest Physiotherapy [RT Chest Physiotherapy] [RC] ASDIRECTED 02/08/19 10:55 Incentive Spirometry [RT Incentive Spirometry] [RC] ASDIRECTED 02/08/19 11:28 Admission Status [Patient Status] [ADT] Routine 02/08/19 16:00 Albuterol/Ipratropium [DuoNeb 3.0-0.5 MG/3 ML] 3 ml NEB QIDRT - Plan Plan:: Assessment: Acute: SSTI Right Foot he now is he is a revision no - Started 2 weeks ago already on Cipro 250 mg po BID - Saw Dr. Vasquez with negative x-rays, was told to keep it moist and elevated foot - Went to [place] Tuesday to see ID and her Cipro was increased to 500 mg po BID - Comes back with worsening erythema and edema - She is not immuno-suppressed - Duplex U/S: negative for blood clot - IV ATB with GP coverage Left Near Elbow Rash - Started 3 weeks ago - Healing well Chronic: Seizure Disorder, Anxiety, Depression and Hx/o Obesity Plan: Admit to inpatient Resume Home Meds Routine AM Labs DVT/GI Prophylaxis Fall Precautions IV Antibiotics - cefoxitin 1 gm q8 hours and vancomycin pharmacy to dose SW/CM for d/c planning Code status: 1 Additional orders as above
[2019-02-08] MEDS: Aspirin 81 MG Tab.Chew PO SCH (20:54)
[2019-02-08] MEDS: Simvastatin 20 MG Tab PO SCH (20:54)
[2019-02-08] MEDS: Cyanocobalamin (Vitamin B12) 1,000 MCG Tab PO SCH (20:55)
[2019-02-08] MEDS: GLUCOSAMINE PO SCH (21:02)
[2019-02-08] MEDS: CHONDROITIN PO SCH (21:02)
[2019-02-09] MEDS: cefOXitin 1 GM in Premix Bag 1 BAG IV SCH ×2 (00:06→08:45)
[2019-02-09] MEDS: Ketorolac 30 MG/ML SDV IV PRN (00:06)
[2019-02-09] MEDS: Albuterol/Ipratropium 3.0-0.5 MG/3 ML Neb Soln NEB SCH ×4 (05:28→20:50)
[2019-02-09] MEDS: Ascorbic Acid 500 MG Tab PO SCH (08:23)
[2019-02-09] MEDS: Furosemide 40 MG Tab PO SCH (08:23)
[2019-02-09] MEDS: Saccharomyces Boulardii (Probiotic) 250 MG Cap PO SCH (08:23)
[2019-02-09] MEDS: Calcium Carbonate/Vitamin D3 600 MG-200 Units Tab PO SCH ×2 (08:23→20:11)
[2019-02-09] MEDS ORDERED: Magnesium Sulfate/Water 4 GM in Premix Bag 1 BAG IV ONE (09:31)
[2019-02-09] MEDS: Sodium Chloride/Potassium Chloride Tab PO SCH ×3 (10:08→20:10)
[2019-02-09] MEDS: Acetaminophen 325 MG Tab PO PRN ×2 (10:08→20:11)
[2019-02-09] MEDS: SALMETEROL PO SCH ×2 (10:55→20:50)
[2019-02-09] MEDS: FLUTICASONE PO SCH ×2 (10:55→20:50)
--- NOTE | 2019-02-09 13:57 | CR ---
Chest: PA and lateral views of the chest were obtained. Comparison: Previous chest x-ray of 02/12/15. Patchy density within the left base is seen. Lungs are hyperinflated but otherwise clear. Heart size is normal. Tortuous thoracic aorta is seen with atherosclerotic calcification within the aorta. Mild compression deformities within the mid to upper thoracic spine are seen. Impression: 1. Findings suspicious for early area of pneumonia within the left base. 2. Emphysematous change and other findings believed to be incidental. Diagnostic code #3
[2019-02-09] MEDS: Sodium Chloride 0.9% 1,000 ML IV SCH (14:05)
[2019-02-09] MEDS: Cefepime 2 GM in Premix Bag 1 BAG IV SCH ×2 (14:07→20:13)
--- NOTE | 2019-02-09 19:09 | PCM.PN ---
- General Info Date of Service: 02/09/19 Admission Dx/Problem (Free Text): Admission Diagnosis/Problem Admission Diagnosis/Problem Cellulitis Subjective Update: patient continues to have a mild cough. Her sodium level did drop a little bit today but her white count continues to be normal. [facility] She was being treated for chronic bronchitis with ciprofloxacin. She did have a sputum that grew out Pseudomonas, unfortunately resistant to ciprofloxacin. I spoke with Dr. Negrete, her infectious disease specialist, who recommended cefepime 2 g every 8 hours while in the hospital and then every 12 hours for total of 10 days after she reads the hospital. Unfortunately, the Pseudomonas is still intermediate resistant to cefepime, but with the higher dose it should have good penetration and results. Also, cefepime should help with her cellulitis. Cellulitis of the right foot is improving and she has less pain. Functional Status: Reports: Pain Controlled - Review of Systems General: Reports: No Symptoms HEENT: Reports: No Symptoms Pulmonary: Reports: Cough. Denies: Sputum Cardiovascular: Reports: No Symptoms Psychiatric: Reports: No Symptoms - Patient Data Vitals - Most Recent: Last Vital Signs Temp 97.5 F 02/09/19 15:55 Pulse 102 H 02/09/19 15:55 Resp 22 H 02/09/19 15:55 BP 125/80 02/09/19 15:55 Pulse Ox 91 L 02/09/19 15:55 Weight - Most Recent: 143 lb 8 oz I&O - Last 24 Hours: Intake & Output 02/09/19 02/09/19 02/09/19 06:59 14:59 22:59 Intake Total 850 180 984 Output Total 200 Balance 650 180 984 Imaging Impressions - Last 24 Hours: chest x-ray shows findings suspicious for early area of pneumonia within the left base. Emphysematous change of the findings believed to be incidental. Lab Results Last 24 Hours: Laboratory Results - last 24 hr 02/09/19 02/09/19 Range/Units 05:33 05:33 WBC 7.69 (3.98-10.04) K/mm3 RBC 3.45 L (3.98-5.22) M/mm3 Hgb 10.1 L (11.2-15.7) gm/dl Hct 31.8 L (34.1-44.9) % MCV 92.2 (79.4-94.8) fl MCH 29.3 (25.6-32.2) pg MCHC 31.8 L (32.2-35.5) g/dl RDW Std Deviation 43.4 (36.4-46.3) fL Plt Count 366 (182-369) K/mm3 MPV 9.7 (9.4-12.3) fl Neut % (Auto) 59.6 (34.0-71.1) % Lymph % (Auto) 21.7 (19.3-51.7) % [place] % (Auto) 11.2 (4.7-12.5) % Eos % (Auto) 6.5 H (0.7-5.8) Baso % (Auto) 0.9 (0.1-1.2) % Neut # (Auto) 4.58 (1.56-6.13) K/mm3 Lymph # (Auto) 1.67 (1.18-3.74) K/mm3 [place] # (Auto) 0.86 H (0.24-0.36) K/mm3 Eos # (Auto) 0.50 H (0.04-0.36) K/mm3 Baso # (Auto) 0.07 (0.01-0.08) K/mm3 Sodium 126 L (136-145) mEq/L Potassium 4.6 (3.5-5.1) mEq/L Chloride 93 L (98-107) mEq/L Carbon Dioxide 28 (21-32) mEq/L Anion Gap 9.6 (5-15) BUN 13 (7-18) mg/dL Creatinine 1.0 (0.55-1.02) mg/dL Est Cr Clr Drug Dosing 43.40 mL/min Estimated GFR (MDRD) 54 (>60) mL/min BUN/Creatinine Ratio 13.0 L (14-18) Glucose 92 (83-115) mg/dL Calcium 8.9 (8.5-10.1) mg/dL Magnesium 1.7 L (1.8-2.4) mg/dl C-Reactive Protein 0.9 (<1.0) mg/dL [facility] Results Last 24 Hours: Microbiology 02/07/19 19:47 Aerobic Blood Culture - Preliminary Blood - Venous NO GROWTH AFTER 1 DAY Anaerobic Blood Culture - Preliminary NO GROWTH AFTER 1 DAY 02/07/19 19:31 Aerobic Blood Culture - Preliminary Blood NO GROWTH AFTER 1 DAY Anaerobic Blood Culture - Preliminary NO GROWTH AFTER 1 DAY Med Orders - Current: Current Medications Acetaminophen (Tylenol) 650 mg PO Q4H PRN PRN Reason: Pain (Mild 1-3)/fever Last Admin: 02/09/19 10:08 Dose: 650 mg Hydrocodone Bitart/Acetaminophen ([place] 325-5 Mg) 1 tab PO Q4H PRN PRN Reason: Pain (moderate 4-6) Last Admin: 02/08/19 20:54 Dose: 1 tab Albuterol (Proventil Hfa) 0 gm INH QIDRT PRN PRN Reason: SOB/Wheezing Albuterol/Ipratropium (Duoneb 3.0-0.5 Mg/3 Ml) 3 ml NEB QIDRT [facility] Last Admin: 02/09/19 15:08 Dose: 3 ml Ascorbic Acid (Vitamin C) 500 mg PO DAILY [facility] Last Admin: 02/09/19 08:23 Dose: 500 mg Aspirin (Aspirin) 81 mg PO BEDTIME [facility] Last Admin: 02/08/19 20:54 Dose: 81 mg Bisacodyl (Dulcolax) 5 mg PO DAILY PRN PRN Reason: Constipation Last Admin: 02/09/19 18:41 Dose: 5 mg Calcium Carbonate (Calcium Carbonate/Vitamin D 600 Mg-200 Unit) 1 tab PO BID [facility] Last Admin: 02/09/19 08:23 Dose: 1 tab Cyanocobalamin (Vitamin B12) 500 mcg PO BEDTIME [facility] Last Admin: 02/08/19 20:55 Dose: 500 mcg Diphenhydramine HCl (Benadryl) 25 mg PO BEDTIME PRN PRN Reason: INSOMNIA Docusate Sodium (Colace) 100 mg PO BID PRN PRN Reason: Constipation Furosemide (Lasix) 40 mg PO DAILY [facility] Last Admin: 02/09/19 08:23 Dose: 40 mg Hydromorphone HCl (Dilaudid) 0.25 mg IVPUSH Q2H PRN PRN Reason: Pain (severe 7-10) Promethazine HCl 6.25 mg/ (Sodium Chloride) 50.25 mls @ 100 mls/hr IV Q6H PRN PRN Reason: Nausea/Vomiting Sodium Chloride (Normal Saline) 1,000 mls @ 25 mls/hr IV ASDIRECTED [facility] Stop: 02/13/19 12:08 Last Admin: 02/09/19 14:05 Dose: 25 mls/hr Cefepime HCl 2 gm/ Premix 50 mls @ 100 mls/hr IV Q8H [facility] Last Admin: 02/09/19 14:07 Dose: 100 mls/hr Ketorolac Tromethamine (Toradol) 30 mg IV Q6H PRN PRN Reason: Pain (moderate 4-6) Last Admin: 02/09/19 00:06 Dose: 30 mg Glucosamine 1500 Mg/Chondroitin 1200 Mg* *Own Med 2 each PO BEDTIME [facility] Last Admin: 02/08/19 21:02 Dose: 2 each Fluticasone/Salmeterol 100/50 McgOwn Med 1 puff PO BID [facility] Last Admin: 02/09/19 10:55 Dose: 1 puff Ondansetron HCl (Zofran) 4 mg IV Q6H PRN PRN Reason: Nausea/Vomiting Last Admin: 02/08/19 17:49 Dose: 4 mg Oral Electrolytes (Thermotabs) 2 each PO TID [facility] Last Admin: 02/09/19 15:57 Dose: 2 each Estradiol [Vagifem] (10 Mcg Ptom) 0 each VAG ASDIRECTED [facility] Saccharomyces Boulardii (Florastor) 250 mg PO DAILY [facility] Last Admin: 02/09/19 08:23 Dose: 250 mg Senna/Docusate Sodium (Senna Plus) 1 tab PO BID PRN PRN Reason: Constipation Simvastatin (Zocor) 20 mg PO BEDTIME [facility] Last Admin: 02/08/19 20:54 Dose: 20 mg Sodium Chloride (Saline Flush) 10 ml FLUSH ASDIRECTED PRN PRN Reason: Keep Vein Open Last Admin: 02/07/19 17:00 Dose: 10 ml Temazepam (Restoril) 7.5 mg PO BEDTIME PRN PRN Reason: Sleep Discontinued Medications Albuterol (Proventil Hfa) 0 gm INH QIDRT [facility] Last Admin: 02/08/19 09:34 Dose: 2 puff Albuterol/Ipratropium (Duoneb 3.0-0.5 Mg/3 Ml) 3 ml NEB Q4H PRN PRN Reason: Shortness Of Breath/wheezing Hydromorphone HCl (Dilaudid) 0.5 mg IM ONETIME ONE Stop: 02/07/19 12:48 Last Admin: 02/07/19 12:55 Dose: 0.5 mg Cefoxitin Sodium 1 gm/ Premix 50 mls @ 100 mls/hr IV Q8H [facility] Last Admin: 02/09/19 08:45 Dose: 100 mls/hr Vancomycin HCl 1 gm/ Sodium (Chloride) 250 mls @ 250 mls/hr IV Q24H [facility] Last Admin: 02/08/19 15:58 Dose: 250 mls/hr Magnesium Sulfate 4 gm/ Premix 50 mls @ 12.5 mls/hr IV ONETIME ONE Stop: 02/09/19 13:30 Last Admin: 02/09/19 10:08 Dose: 12.5 mls/hr Non-Formulary Medication (Denosumab [Prolia]) 1 injection SQ ASDIRECTED [facility] Fluticasone/Salmeterol 100/50 McgOwn Med 1 puff PO BID [facility] Last Admin: 02/08/19 09:34 Dose: 1 puff Pravastatin 40 Mg (Own Med) 40 mg PO BEDTIME [facility] Last Admin: 02/07/19 22:42 Dose: 40 mg Glucosamine 1500 Mg/Chondroitin 1200 Mg* *Own Med 2 each PO BEDTIME [facility] Last Admin: 02/07/19 22:42 Dose: 2 each Ondansetron HCl (Zofran Odt) 4 mg PO ONETIME ONE Stop: 02/07/19 12:48 Last Admin: 02/07/19 12:54 Dose: 4 mg Vancomycin HCl (Pharmacy To Dose - Vancomycin) 1 dose .XX ASDIRECTED PRN PRN Reason: RX TO DOSE VANCO - Exam General: Alert, Oriented HEENT: Pupils Equal Neck: Supple Lungs: Rhonchi, Wheezing Cardiovascular: Regular Rate, Regular Rhythm GI/Abdominal Exam: Normal Bowel Sounds, Soft, Non-Tender, No Distention Skin: Warm, Dry, Intact Psy/Mental Status: Alert, Normal Affect, Normal Mood - Problem List Review Problem List Initiated/Reviewed/Updated: Yes - My Orders Last 24 Hours: My Active Orders 02/09/19 10:00 Sodium Chloride/KCl [Thermotabs] 2 each PO TID 02/09/19 12:15 Sodium Chloride 0.9% [Normal Saline] 1,000 ml IV ASDIRECTED 02/09/19 13:00 Cefepime [Maxipime in D5W 2 GM/50 ML] 2 gm Premix Bag 1 bag IV Q8H 02/09/19 Lunch Fluid Restriction [DIET] - Plan Plan:: Assessment: Acute: SSTI Right Foot he now is he is a revision no - Started 2 weeks ago already on Cipro 250 mg po BID - Saw Dr. Vasquez with negative x-rays, was told to keep it moist and elevated foot - Went to [place] Tuesday to see ID and her Cipro was increased to 500 mg po BID - Comes back with worsening erythema and edema - She is not immuno-suppressed - Duplex U/S: negative for blood clot - IV ATB with GP coverage exacerbation of COPD with positive cultures to pseudomonas aeruginosa - Switch antibiotics to cefepime 2 g every 8 hours - Incentive spirometry - Chest x-ray is concerning for early pneumonia, that does not fit the clinical picture with a normal white count. Left Near Elbow Rash - Started 3 weeks ago - Healing well Chronic: Seizure Disorder, Anxiety, Depression and Hx/o Obesity Plan: Admit to inpatient Resume Home Meds Routine AM Labs DVT/GI Prophylaxis Fall Precautions cefepime 10 days. 2 g every 8 hours while an inpatient and then switch to every 12 hours when discharged per ID. SW/CM for d/c planning Code status: 1 Additional orders as above
[2019-02-09] MEDS: Cyanocobalamin (Vitamin B12) 1,000 MCG Tab PO SCH (20:09)
[2019-02-09] MEDS: Aspirin 81 MG Tab.Chew PO SCH (20:11)
[2019-02-09] MEDS: Simvastatin 20 MG Tab PO SCH (20:12)
[2019-02-09] MEDS: GLUCOSAMINE PO SCH (20:25)
[2019-02-09] MEDS: CHONDROITIN PO SCH (20:25)
[2019-02-10] MEDS: Cefepime 2 GM in Premix Bag 1 BAG IV SCH ×3 (04:21→21:03)
[2019-02-10] MEDS ORDERED: Magnesium Hydroxide 400 MG/5 ML Susp 30 ML Cup PO ONE (04:40)
[2019-02-10] MEDS: Acetaminophen 325 MG Tab PO PRN ×3 (04:50→18:01)
[2019-02-10] MEDS: Albuterol/Ipratropium 3.0-0.5 MG/3 ML Neb Soln NEB SCH ×4 (06:17→20:36)
[2019-02-10] MEDS: Calcium Carbonate/Vitamin D3 600 MG-200 Units Tab PO SCH ×2 (08:08→21:03)
[2019-02-10] MEDS: Ascorbic Acid 500 MG Tab PO SCH (08:09)
[2019-02-10] MEDS: Saccharomyces Boulardii (Probiotic) 250 MG Cap PO SCH (08:09)
[2019-02-10] MEDS: Sodium Chloride/Potassium Chloride Tab PO SCH ×3 (08:09→21:04)
[2019-02-10] MEDS: Furosemide 40 MG Tab PO SCH (08:09)
[2019-02-10] MEDS: SALMETEROL PO SCH ×2 (09:26→20:36)
[2019-02-10] MEDS: FLUTICASONE PO SCH ×2 (09:26→20:36)
[2019-02-10] MEDS: Magnesium Oxide 400 MG Tab PO SCH ×2 (13:14→21:03)
[2019-02-10] MEDS: Sodium Chloride 0.9% 1,000 ML IV SCH (13:46)
--- NOTE | 2019-02-10 14:35 | PCM.PN ---
- General Info Date of Service: 02/10/19 Admission Dx/Problem (Free Text): Admission Diagnosis/Problem Admission Diagnosis/Problem Cellulitis Subjective Update: patient states that she is feeling better this morning. Right foot cellulitis is also improved. Functional Status: Reports: Pain Controlled - Review of Systems General: Reports: No Symptoms HEENT: Reports: No Symptoms Pulmonary: Reports: No Symptoms - Patient Data Vitals - Most Recent: Last Vital Signs Temp 98.2 F 02/10/19 08:18 Pulse 92 02/10/19 08:18 Resp 18 02/10/19 08:18 BP 143/70 H 02/10/19 08:18 Pulse Ox 97 02/10/19 09:27 Weight - Most Recent: 142 lb I&O - Last 24 Hours: Intake & Output 02/09/19 02/10/19 02/10/19 22:59 06:59 14:59 Intake Total 984 413 120 Balance 984 413 120 Lab Results Last 24 Hours: Laboratory Results - last 24 hr 02/10/19 02/10/19 Range/Units 06:00 06:00 WBC 9.26 (3.98-10.04) K/mm3 RBC 3.49 L (3.98-5.22) M/mm3 Hgb 10.3 L (11.2-15.7) gm/dl Hct 31.7 L (34.1-44.9) % MCV 90.8 (79.4-94.8) fl MCH 29.5 (25.6-32.2) pg MCHC 32.5 (32.2-35.5) g/dl RDW Std Deviation 43.0 (36.4-46.3) fL Plt Count 372 H (182-369) K/mm3 MPV 10.0 (9.4-12.3) fl Neut % (Auto) 67.4 (34.0-71.1) % Lymph % (Auto) 13.9 L (19.3-51.7) % [place] % (Auto) 12.2 (4.7-12.5) % Eos % (Auto) 5.4 (0.7-5.8) Baso % (Auto) 0.9 (0.1-1.2) % Neut # (Auto) 6.24 H (1.56-6.13) K/mm3 Lymph # (Auto) 1.29 (1.18-3.74) K/mm3 [place] # (Auto) 1.13 H (0.24-0.36) K/mm3 Eos # (Auto) 0.50 H (0.04-0.36) K/mm3 Baso # (Auto) 0.08 (0.01-0.08) K/mm3 Sodium 129 L (136-145) mEq/L Potassium 4.7 (3.5-5.1) mEq/L Chloride 95 L (98-107) mEq/L Carbon Dioxide 28 (21-32) mEq/L Anion Gap 10.7 (5-15) BUN 16 (7-18) mg/dL Creatinine 1.1 H (0.55-1.02) mg/dL Est Cr Clr Drug Dosing 39.46 mL/min Estimated GFR (MDRD) 48 (>60) mL/min BUN/Creatinine Ratio 14.5 (14-18) Glucose 104 (83-115) mg/dL Calcium 9.8 (8.5-10.1) mg/dL Magnesium 1.8 (1.8-2.4) mg/dl C-Reactive Protein 1.9 H* (<1.0) mg/dL [facility] Results Last 24 Hours: Microbiology 02/07/19 19:47 Aerobic Blood Culture - Preliminary Blood - Venous NO GROWTH AFTER 2 DAYS Anaerobic Blood Culture - Preliminary NO GROWTH AFTER 2 DAYS 02/07/19 19:31 Aerobic Blood Culture - Preliminary Blood NO GROWTH AFTER 2 DAYS Anaerobic Blood Culture - Preliminary NO GROWTH AFTER 2 DAYS Med Orders - Current: Current Medications Acetaminophen (Tylenol) 650 mg PO Q4H PRN PRN Reason: Pain (Mild 1-3)/fever Last Admin: 02/10/19 13:14 Dose: 650 mg Hydrocodone Bitart/Acetaminophen ([place] 325-5 Mg) 1 tab PO Q4H PRN PRN Reason: Pain (moderate 4-6) Last Admin: 02/08/19 20:54 Dose: 1 tab Albuterol (Proventil Hfa) 0 gm INH QIDRT PRN PRN Reason: SOB/Wheezing Albuterol/Ipratropium (Duoneb 3.0-0.5 Mg/3 Ml) 3 ml NEB QIDRT [facility] Last Admin: 02/10/19 09:25 Dose: 3 ml Ascorbic Acid (Vitamin C) 500 mg PO DAILY [facility] Last Admin: 02/10/19 08:09 Dose: 500 mg Aspirin (Aspirin) 81 mg PO BEDTIME [facility] Last Admin: 02/09/19 20:11 Dose: 81 mg Bisacodyl (Dulcolax) 5 mg PO DAILY PRN PRN Reason: Constipation Last Admin: 02/09/19 18:41 Dose: 5 mg Calcium Carbonate (Calcium Carbonate/Vitamin D 600 Mg-200 Unit) 1 tab PO BID [facility] Last Admin: 02/10/19 08:08 Dose: 1 tab Cyanocobalamin (Vitamin B12) 500 mcg PO BEDTIME [facility] Last Admin: 02/09/19 20:09 Dose: 500 mcg Diphenhydramine HCl (Benadryl) 25 mg PO BEDTIME PRN PRN Reason: INSOMNIA Docusate Sodium (Colace) 100 mg PO BID PRN PRN Reason: Constipation Furosemide (Lasix) 40 mg PO DAILY [facility] Last Admin: 02/10/19 08:09 Dose: 40 mg Hydromorphone HCl (Dilaudid) 0.25 mg IVPUSH Q2H PRN PRN Reason: Pain (severe 7-10) Promethazine HCl 6.25 mg/ (Sodium Chloride) 50.25 mls @ 100 mls/hr IV Q6H PRN PRN Reason: Nausea/Vomiting Sodium Chloride (Normal Saline) 1,000 mls @ 25 mls/hr IV ASDIRECTED [facility] Stop: 02/13/19 12:08 Last Admin: 02/10/19 13:46 Dose: 25 mls/hr Cefepime HCl 2 gm/ Premix 50 mls @ 100 mls/hr IV Q8H [facility] Last Admin: 02/10/19 12:57 Dose: 100 mls/hr Ketorolac Tromethamine (Toradol) 30 mg IV Q6H PRN PRN Reason: Pain (moderate 4-6) Last Admin: 02/09/19 00:06 Dose: 30 mg Magnesium Oxide (Magnesium Oxide) 400 mg PO BID [facility] Last Admin: 02/10/19 13:14 Dose: 400 mg Glucosamine 1500 Mg/Chondroitin 1200 Mg* *Own Med 2 each PO BEDTIME [facility] Last Admin: 02/09/19 20:25 Dose: 2 each Fluticasone/Salmeterol 100/50 McgOwn Med 1 puff PO BID [facility] Last Admin: 02/10/19 09:26 Dose: 1 puff Ondansetron HCl (Zofran) 4 mg IV Q6H PRN PRN Reason: Nausea/Vomiting Last Admin: 02/08/19 17:49 Dose: 4 mg Oral Electrolytes (Thermotabs) 2 each PO TID [facility] Last Admin: 02/10/19 08:09 Dose: 2 each Estradiol [Vagifem] (10 Mcg Ptom) 0 each VAG ASDIRECTED [facility] Saccharomyces Boulardii (Florastor) 250 mg PO DAILY [facility] Last Admin: 02/10/19 08:09 Dose: 250 mg Senna/Docusate Sodium (Senna Plus) 1 tab PO BID PRN PRN Reason: Constipation Simvastatin (Zocor) 20 mg PO BEDTIME [facility] Last Admin: 02/09/19 20:12 Dose: 20 mg Sodium Chloride (Saline Flush) 10 ml FLUSH ASDIRECTED PRN PRN Reason: Keep Vein Open Last Admin: 02/07/19 17:00 Dose: 10 ml Temazepam (Restoril) 7.5 mg PO BEDTIME PRN PRN Reason: Sleep Discontinued Medications Albuterol (Proventil Hfa) 0 gm INH QIDRT [facility] Last Admin: 02/08/19 09:34 Dose: 2 puff Albuterol/Ipratropium (Duoneb 3.0-0.5 Mg/3 Ml) 3 ml NEB Q4H PRN PRN Reason: Shortness Of Breath/wheezing Hydromorphone HCl (Dilaudid) 0.5 mg IM ONETIME ONE Stop: 02/07/19 12:48 Last Admin: 02/07/19 12:55 Dose: 0.5 mg Cefoxitin Sodium 1 gm/ Premix 50 mls @ 100 mls/hr IV Q8H [facility] Last Admin: 02/09/19 08:45 Dose: 100 mls/hr Vancomycin HCl 1 gm/ Sodium (Chloride) 250 mls @ 250 mls/hr IV Q24H [facility] Last Admin: 02/08/19 15:58 Dose: 250 mls/hr Magnesium Sulfate 4 gm/ Premix 50 mls @ 12.5 mls/hr IV ONETIME ONE Stop: 02/09/19 13:30 Last Admin: 02/09/19 10:08 Dose: 12.5 mls/hr Magnesium Hydroxide (Milk Of Magnesia) 30 ml PO ONETIME ONE Stop: 02/10/19 04:41 Last Admin: 02/10/19 04:50 Dose: 30 ml Non-Formulary Medication (Denosumab [Prolia]) 1 injection SQ ASDIRECTED [facility] Fluticasone/Salmeterol 100/50 McgOwn Med 1 puff PO BID [facility] Last Admin: 02/08/19 09:34 Dose: 1 puff Pravastatin 40 Mg (Own Med) 40 mg PO BEDTIME [facility] Last Admin: 02/07/19 22:42 Dose: 40 mg Glucosamine 1500 Mg/Chondroitin 1200 Mg* *Own Med 2 each PO BEDTIME [facility] Last Admin: 02/07/19 22:42 Dose: 2 each Ondansetron HCl (Zofran Odt) 4 mg PO ONETIME ONE Stop: 02/07/19 12:48 Last Admin: 02/07/19 12:54 Dose: 4 mg Vancomycin HCl (Pharmacy To Dose - Vancomycin) 1 dose .XX ASDIRECTED PRN PRN Reason: RX TO DOSE VANCO - Exam Quality Assessment: Supplemental Oxygen General: Alert, Oriented HEENT: Pupils Equal, Mucous Membr. Moist/Marie Neck: Supple Lungs: Decreased Breath Sounds, Wheezing Cardiovascular: Regular Rate, Regular Rhythm GI/Abdominal Exam: Normal Bowel Sounds, No Distention Extremities: Other (improving erythema of the right foot.till some scaling and flaking of skin.) - Problem List Review Problem List Initiated/Reviewed/Updated: Yes - My Orders Last 24 Hours: My Active Orders 02/10/19 10:45 Magnesium Oxide 400 mg PO BID 02/10/19 10:50 Communication Order [RC] BID - Plan Plan:: Assessment: Acute: SSTI Right Foot he now is he is a revision no - Started 2 weeks ago already on Cipro 250 mg po BID - Saw Dr. Vasquez with negative x-rays, was told to keep it moist and elevated foot - Went to [place] Tuesday to see ID and her Cipro was increased to 500 mg po BID - Comes back with worsening erythema and edema - She is not immuno-suppressed - Duplex U/S: negative for blood clot - cefepime 2 g every 8 hours - Antibiotic ointment to foot Exacerbation of COPD with positive cultures to pseudomonas aeruginosa - Switch antibiotics to cefepime 2 g every 8 hours - Incentive spirometry - Chest x-ray is concerning for early pneumonia, that does not fit the clinical picture with a normal white count. Left Near Elbow Rash - Started 3 weeks ago - Healing well Chronic: Seizure Disorder, Anxiety, Depression and Hx/o Obesity Plan: Admit to inpatient Resume Home Meds Routine AM Labs DVT/GI Prophylaxis Fall Precautions cefepime 10 days. 2 g every 8 hours while an inpatient and then switch to every 12 hours when discharged per ID. SW/CM for d/c planning Code status: 1 Additional orders as above
[2019-02-10] MEDS: Acetaminophen/HYDROcodone 325-5 MG Tab PO PRN (18:36)
[2019-02-10] MEDS: Aspirin 81 MG Tab.Chew PO SCH (21:03)
[2019-02-10] MEDS: CHONDROITIN PO SCH (21:04)
[2019-02-10] MEDS: GLUCOSAMINE PO SCH (21:04)
[2019-02-10] MEDS: Cyanocobalamin (Vitamin B12) 1,000 MCG Tab PO SCH (21:04)
[2019-02-10] MEDS: Ketorolac 30 MG/ML SDV IV PRN (21:05)
[2019-02-10] MEDS: Simvastatin 20 MG Tab PO SCH (21:05)
[2019-02-11] MEDS: Acetaminophen 325 MG Tab PO PRN ×4 (01:24→21:43)
[2019-02-11] MEDS: Cefepime 2 GM in Premix Bag 1 BAG IV SCH ×3 (04:18→21:08)
[2019-02-11] MEDS: Albuterol/Ipratropium 3.0-0.5 MG/3 ML Neb Soln NEB SCH ×4 (06:31→20:45)
[2019-02-11] MEDS: Furosemide 40 MG Tab PO SCH (09:14)
[2019-02-11] MEDS: Calcium Carbonate/Vitamin D3 600 MG-200 Units Tab PO SCH ×2 (09:14→21:10)
[2019-02-11] MEDS: Ascorbic Acid 500 MG Tab PO SCH (09:15)
[2019-02-11] MEDS: Saccharomyces Boulardii (Probiotic) 250 MG Cap PO SCH (09:15)
[2019-02-11] MEDS: Sodium Chloride/Potassium Chloride Tab PO SCH ×3 (09:15→21:10)
[2019-02-11] MEDS: Magnesium Oxide 400 MG Tab PO SCH ×2 (09:15→21:11)
[2019-02-11] MEDS ORDERED: Magnesium Sulfate/Water 4 GM in Premix Bag 1 BAG IV ONE (09:19)
[2019-02-11] MEDS: SALMETEROL PO SCH ×2 (09:38→20:45)
[2019-02-11] MEDS: FLUTICASONE PO SCH ×2 (09:38→20:45)
[2019-02-11] MEDS ORDERED: Cefepime 50 ML ONE (13:03)
[2019-02-11] MEDS: Vancomycin 125 MG Cap PO SCH ×3 (13:15→21:11)
--- NOTE | 2019-02-11 14:43 | PCM.PN ---
- General Info Date of Service: 02/11/19 Admission Dx/Problem (Free Text): Admission Diagnosis/Problem Admission Diagnosis/Problem Cellulitis Subjective Update: patient hit that she is doing well. Her cough has improved and her foot is less red and swollen. She does still have some shooting pain through her right foot. Patient does state that she has had several liquid stools that are foul- smelling. She did get milk of magnesia, but she has been on multiple antibiotics , ciprofloxacin for 3 weeks, cefoxitin, and now cefepime, which would set her up for C. difficile. Functional Status: Reports: Pain Controlled - Review of Systems General: Reports: No Symptoms HEENT: Reports: No Symptoms Pulmonary: Reports: No Symptoms Cardiovascular: Reports: No Symptoms Gastrointestinal: Reports: Diarrhea - Patient Data Vitals - Most Recent: Last Vital Signs Temp 98.6 F 02/11/19 12:13 Pulse 89 02/11/19 12:13 Resp 16 02/11/19 12:13 BP 131/65 02/11/19 12:13 Pulse Ox 95 02/11/19 12:13 Weight - Most Recent: 140 lb 6.4 oz I&O - Last 24 Hours: Intake & Output 02/10/19 02/11/19 02/11/19 22:59 06:59 14:59 Intake Total 700 700 300 Output Total 200 700 Balance 500 0 300 Lab Results Last 24 Hours: Laboratory Results - last 24 hr 02/11/19 02/11/19 Range/Units 04:25 04:25 WBC 9.55 (3.98-10.04) K/mm3 RBC 3.39 L (3.98-5.22) M/mm3 Hgb 10.0 L (11.2-15.7) gm/dl Hct 30.8 L (34.1-44.9) % MCV 90.9 (79.4-94.8) fl MCH 29.5 (25.6-32.2) pg MCHC 32.5 (32.2-35.5) g/dl RDW Std Deviation 43.4 (36.4-46.3) fL Plt Count 346 (182-369) K/mm3 MPV 9.9 (9.4-12.3) fl Neut % (Auto) 63.2 (34.0-71.1) % Lymph % (Auto) 17.0 L (19.3-51.7) % [place] % (Auto) 14.1 H (4.7-12.5) % Eos % (Auto) 5.0 (0.7-5.8) Baso % (Auto) 0.5 (0.1-1.2) % Neut # (Auto) 6.03 (1.56-6.13) K/mm3 Lymph # (Auto) 1.62 (1.18-3.74) K/mm3 [place] # (Auto) 1.35 H (0.24-0.36) K/mm3 Eos # (Auto) 0.48 H (0.04-0.36) K/mm3 Baso # (Auto) 0.05 (0.01-0.08) K/mm3 Sodium 131 L (136-145) mEq/L Potassium 4.6 (3.5-5.1) mEq/L Chloride 96 L (98-107) mEq/L Carbon Dioxide 28 (21-32) mEq/L Anion Gap 11.6 (5-15) BUN 17 (7-18) mg/dL Creatinine 1.0 (0.55-1.02) mg/dL Est Cr Clr Drug Dosing 43.40 mL/min Estimated GFR (MDRD) 54 (>60) mL/min BUN/Creatinine Ratio 17.0 (14-18) Glucose 85 (83-115) mg/dL Calcium 9.7 (8.5-10.1) mg/dL Magnesium 1.7 L (1.8-2.4) mg/dl C-Reactive Protein 6.0 H* (<1.0) mg/dL Pawel Results Last 24 Hours: Microbiology 02/07/19 19:47 Aerobic Blood Culture - Preliminary Blood - Venous NO GROWTH AFTER 3 DAYS Anaerobic Blood Culture - Preliminary NO GROWTH AFTER 3 DAYS 02/07/19 19:31 Aerobic Blood Culture - Preliminary Blood NO GROWTH AFTER 3 DAYS Anaerobic Blood Culture - Preliminary NO GROWTH AFTER 3 DAYS Med Orders - Current: Current Medications Acetaminophen (Tylenol) 650 mg PO Q4H PRN PRN Reason: Pain (Mild 1-3)/fever Last Admin: 02/11/19 09:14 Dose: 650 mg Hydrocodone Bitart/Acetaminophen ([place] 325-5 Mg) 1 tab PO Q4H PRN PRN Reason: Pain (moderate 4-6) Last Admin: 02/10/19 18:36 Dose: 1 tab Albuterol (Proventil Hfa) 0 gm INH QIDRT PRN PRN Reason: SOB/Wheezing Albuterol/Ipratropium (Duoneb 3.0-0.5 Mg/3 Ml) 3 ml NEB QIDRT [facility] Last Admin: 02/11/19 09:38 Dose: 3 ml Ascorbic Acid (Vitamin C) 500 mg PO DAILY [facility] Last Admin: 02/11/19 09:15 Dose: 500 mg Aspirin (Aspirin) 81 mg PO BEDTIME [facility] Last Admin: 02/10/19 21:03 Dose: 81 mg Bisacodyl (Dulcolax) 5 mg PO DAILY PRN PRN Reason: Constipation Last Admin: 02/09/19 18:41 Dose: 5 mg Calcium Carbonate (Calcium Carbonate/Vitamin D 600 Mg-200 Unit) 1 tab PO BID [facility] Last Admin: 02/11/19 09:14 Dose: 1 tab Cyanocobalamin (Vitamin B12) 500 mcg PO BEDTIME [facility] Last Admin: 02/10/19 21:04 Dose: 500 mcg Diphenhydramine HCl (Benadryl) 25 mg PO BEDTIME PRN PRN Reason: INSOMNIA Docusate Sodium (Colace) 100 mg PO BID PRN PRN Reason: Constipation Furosemide (Lasix) 40 mg PO DAILY [facility] Last Admin: 02/11/19 09:14 Dose: 40 mg Hydromorphone HCl (Dilaudid) 0.25 mg IVPUSH Q2H PRN PRN Reason: Pain (severe 7-10) Promethazine HCl 6.25 mg/ (Sodium Chloride) 50.25 mls @ 100 mls/hr IV Q6H PRN PRN Reason: Nausea/Vomiting Sodium Chloride (Normal Saline) 1,000 mls @ 25 mls/hr IV ASDIRECTED [facility] Stop: 02/13/19 12:08 Last Admin: 02/10/19 13:46 Dose: 25 mls/hr Cefepime HCl 2 gm/ Premix 50 mls @ 100 mls/hr IV Q8H [facility] Last Admin: 02/11/19 04:18 Dose: 100 mls/hr Ketorolac Tromethamine (Toradol) 30 mg IV Q6H PRN PRN Reason: Pain (moderate 4-6) Last Admin: 02/10/19 21:05 Dose: 30 mg Magnesium Oxide (Magnesium Oxide) 400 mg PO BID [facility] Last Admin: 02/11/19 09:15 Dose: 400 mg Glucosamine 1500 Mg/Chondroitin 1200 Mg* *Own Med 2 each PO BEDTIME [facility] Last Admin: 02/10/19 21:04 Dose: 2 each Fluticasone/Salmeterol 100/50 McgOwn Med 1 puff PO BID [facility] Last Admin: 02/11/19 09:38 Dose: 1 puff Ondansetron HCl (Zofran) 4 mg IV Q6H PRN PRN Reason: Nausea/Vomiting Last Admin: 02/08/19 17:49 Dose: 4 mg Oral Electrolytes (Thermotabs) 2 each PO TID [facility] Last Admin: 02/11/19 09:15 Dose: 2 each Estradiol [Vagifem] (10 Mcg Ptom) 0 each VAG ASDIRECTED [facility] Saccharomyces Boulardii (Florastor) 250 mg PO DAILY [facility] Last Admin: 02/11/19 09:15 Dose: 250 mg Senna/Docusate Sodium (Senna Plus) 1 tab PO BID PRN PRN Reason: Constipation Simvastatin (Zocor) 20 mg PO BEDTIME [facility] Last Admin: 02/10/19 21:05 Dose: 20 mg Sodium Chloride (Saline Flush) 10 ml FLUSH ASDIRECTED PRN PRN Reason: Keep Vein Open Last Admin: 02/07/19 17:00 Dose: 10 ml Temazepam (Restoril) 7.5 mg PO BEDTIME PRN PRN Reason: Sleep Vancomycin HCl (Vancomycin) 125 mg PO QID [facility] Discontinued Medications Albuterol (Proventil Hfa) 0 gm INH QIDRT [facility] Last Admin: 02/08/19 09:34 Dose: 2 puff Albuterol/Ipratropium (Duoneb 3.0-0.5 Mg/3 Ml) 3 ml NEB Q4H PRN PRN Reason: Shortness Of Breath/wheezing Hydromorphone HCl (Dilaudid) 0.5 mg IM ONETIME ONE Stop: 02/07/19 12:48 Last Admin: 02/07/19 12:55 Dose: 0.5 mg Cefoxitin Sodium 1 gm/ Premix 50 mls @ 100 mls/hr IV Q8H [facility] Last Admin: 02/09/19 08:45 Dose: 100 mls/hr Vancomycin HCl 1 gm/ Sodium (Chloride) 250 mls @ 250 mls/hr IV Q24H [facility] Last Admin: 02/08/19 15:58 Dose: 250 mls/hr Magnesium Sulfate 4 gm/ Premix 50 mls @ 12.5 mls/hr IV ONETIME ONE Stop: 02/09/19 13:30 Last Admin: 02/09/19 10:08 Dose: 12.5 mls/hr Magnesium Sulfate 4 gm/ Premix 50 mls @ 12.5 mls/hr IV ONETIME ONE Stop: 02/11/19 13:18 Last Admin: 02/11/19 09:54 Dose: 12.5 mls/hr Cefepime HCl (Maxipime In D5w 2 Gm/50 Ml) Confirm Administered Dose 50 mls @ as directed .ROUTE .STK-MED ONE Stop: 02/11/19 13:04 Magnesium Hydroxide (Milk Of Magnesia) 30 ml PO ONETIME ONE Stop: 02/10/19 04:41 Last Admin: 02/10/19 04:50 Dose: 30 ml Non-Formulary Medication (Denosumab [Prolia]) 1 injection SQ ASDIRECTED [facility] Fluticasone/Salmeterol 100/50 McgOwn Med 1 puff PO BID [facility] Last Admin: 02/08/19 09:34 Dose: 1 puff Pravastatin 40 Mg (Own Med) 40 mg PO BEDTIME [facility] Last Admin: 02/07/19 22:42 Dose: 40 mg Glucosamine 1500 Mg/Chondroitin 1200 Mg* *Own Med 2 each PO BEDTIME [facility] Last Admin: 02/07/19 22:42 Dose: 2 each Ondansetron HCl (Zofran Odt) 4 mg PO ONETIME ONE Stop: 02/07/19 12:48 Last Admin: 02/07/19 12:54 Dose: 4 mg Vancomycin HCl (Pharmacy To Dose - Vancomycin) 1 dose .XX ASDIRECTED PRN PRN Reason: RX TO DOSE VANCO - Exam Quality Assessment: Supplemental Oxygen General: Alert, Oriented HEENT: Pupils Equal, Pupils Reactive, EOMI, Mucous Membr. Moist/[place] Neck: Supple Lungs: Decreased Breath Sounds, Wheezing Cardiovascular: Regular Rate, Regular Rhythm GI/Abdominal Exam: Normal Bowel Sounds, Soft, Non-Tender, No Distention Extremities: Normal Inspection, Normal Range of Motion, Non-Tender, Pedal Edema , Other (improving right cellulitis on the lower extremity.) Skin: Warm, Dry, Intact Wound/Incisions: Healing Well Psy/Mental Status: Alert - Problem List Review Problem List Initiated/Reviewed/Updated: Yes - My Orders Last 24 Hours: My Active Orders 02/10/19 22:46 Communication Order [RC] Q12HR 02/11/19 11:53 C DIFFICILE BY PCR W/NAP1 [MOLEC] Routine Isolation [COMM] Stat 02/11/19 13:00 Vancomycin 125 mg PO QID - Plan Plan:: Assessment: Acute: SSTI Right Foot he now is he is a revision no - Started 2 weeks ago already on Cipro 250 mg po BID - Saw Dr. Vasquez with negative x-rays, was told to keep it moist and elevated foot - Went to [place] Tuesday to see ID and her Cipro was increased to 500 mg po BID - Comes back with worsening erythema and edema - She is not immuno-suppressed - Duplex U/S: negative for blood clot - cefepime 2 g every 8 hours - Antibiotic ointment to foot Exacerbation of COPD with positive cultures to pseudomonas aeruginosa - Switch antibiotics to cefepime 2 g every 8 hours - Incentive spirometry - Chest x-ray is concerning for early pneumonia, that does not fit the clinical picture with a normal white count. Left Near Elbow Rash - Started 3 weeks ago - Healing well liquid diarrhea - history multiple antibiotics: ciprofloxacin for 3 weeks, cefoxitin, and now cefepime, which would set her up for C. difficile. - Send stool for C. difficile - Because of her high risk for C. difficile we will start vancomycin 125 mg every 8 hours until results of stool 2 Chronic: Seizure Disorder, Anxiety, Depression and Hx/o Obesity Plan: Admit to inpatient Resume Home Meds Routine AM Labs DVT/GI Prophylaxis Fall Precautions cefepime 10 days. 2 g every 8 hours while an inpatient and then switch to every 12 hours when discharged per ID. SW/CM for d/c planning Code status: 1 Additional orders as above
[2019-02-11] MEDS: Sodium Chloride 0.9% 1,000 ML IV SCH (16:21)
[2019-02-11] MEDS: Cyanocobalamin (Vitamin B12) 1,000 MCG Tab PO SCH (21:10)
[2019-02-11] MEDS: Simvastatin 20 MG Tab PO SCH (21:11)
[2019-02-11] MEDS: Aspirin 81 MG Tab.Chew PO SCH (21:12)
[2019-02-11] MEDS: GLUCOSAMINE PO SCH (21:17)
[2019-02-11] MEDS: CHONDROITIN PO SCH (21:17)
[2019-02-12] MEDS: Cefepime 2 GM in Premix Bag 1 BAG IV SCH ×3 (04:30→20:52)
[2019-02-12] MEDS: Acetaminophen 325 MG Tab PO PRN ×4 (05:25→18:26)
[2019-02-12] MEDS: Albuterol/Ipratropium 3.0-0.5 MG/3 ML Neb Soln NEB SCH ×4 (06:14→20:15)
[2019-02-12] MEDS: Saccharomyces Boulardii (Probiotic) 250 MG Cap PO SCH (08:44)
[2019-02-12] MEDS: Ascorbic Acid 500 MG Tab PO SCH (08:45)
[2019-02-12] MEDS: Sodium Chloride/Potassium Chloride Tab PO SCH ×3 (08:45→20:48)
[2019-02-12] MEDS: Furosemide 40 MG Tab PO SCH (08:46)
[2019-02-12] MEDS: Vancomycin 125 MG Cap PO SCH (08:47)
[2019-02-12] MEDS: Magnesium Oxide 400 MG Tab PO SCH ×2 (08:47→20:48)
[2019-02-12] MEDS: Calcium Carbonate/Vitamin D3 600 MG-200 Units Tab PO SCH ×2 (08:47→20:50)
[2019-02-12] MEDS: FLUTICASONE PO SCH ×2 (09:04→20:15)
[2019-02-12] MEDS: SALMETEROL PO SCH ×2 (09:04→20:15)
--- NOTE | 2019-02-12 09:35 | PCM.PN ---
- General Info Date of Service: 02/12/19 Admission Dx/Problem (Free Text): Admission Diagnosis/Problem Admission Diagnosis/Problem Cellulitis Subjective Update: Soraida continues to improve. Her right foot is less red, swollen, and painful. Cough continues but slightly better. Loose stool today that was negative for C. difficile toxin Functional Status: Reports: Pain Controlled - Review of Systems General: Reports: No Symptoms HEENT: Reports: No Symptoms Pulmonary: Reports: Cough Cardiovascular: Reports: No Symptoms - Patient Data Vitals - Most Recent: Last Vital Signs Temp 97.9 F 02/12/19 04:38 Pulse 84 02/12/19 04:38 Resp 20 02/12/19 04:38 BP 134/103 H 02/12/19 04:38 Pulse Ox 90 L 02/12/19 09:05 Weight - Most Recent: 142 lb 1.6 oz I&O - Last 24 Hours: Intake & Output 02/11/19 02/12/19 02/12/19 22:59 06:59 14:59 Intake Total 1790 750 Output Total 1050 1000 Balance 740 -250 Lab Results Last 24 Hours: Laboratory Results - last 24 hr 02/12/19 02/12/19 02/12/19 Range/Units 05:31 05:31 06:25 WBC 9.44 (3.98-10.04) K/mm3 RBC 3.29 L (3.98-5.22) M/mm3 Hgb 9.7 L (11.2-15.7) gm/dl Hct 30.3 L (34.1-44.9) % MCV 92.1 (79.4-94.8) fl MCH 29.5 (25.6-32.2) pg MCHC 32.0 L (32.2-35.5) g/dl RDW Std Deviation 44.0 (36.4-46.3) fL Plt Count 353 (182-369) K/mm3 MPV 9.6 (9.4-12.3) fl Neut % (Auto) 61.8 (34.0-71.1) % Lymph % (Auto) 17.6 L (19.3-51.7) % [place] % (Auto) 13.2 H (4.7-12.5) % Eos % (Auto) 6.6 H (0.7-5.8) Baso % (Auto) 0.6 (0.1-1.2) % Neut # (Auto) 5.83 (1.56-6.13) K/mm3 Lymph # (Auto) 1.66 (1.18-3.74) K/mm3 [place] # (Auto) 1.25 H (0.24-0.36) K/mm3 Eos # (Auto) 0.62 H (0.04-0.36) K/mm3 Baso # (Auto) 0.06 (0.01-0.08) K/mm3 Manual Slide Review Not Reportable Sodium 133 L (136-145) mEq/L Potassium 4.9 (3.5-5.1) mEq/L Chloride 97 L (98-107) mEq/L Carbon Dioxide 30 (21-32) mEq/L Anion Gap 10.9 (5-15) BUN 19 H (7-18) mg/dL Creatinine 1.3 H (0.55-1.02) mg/dL Est Cr Clr Drug Dosing 33.39 mL/min Estimated GFR (MDRD) 40 (>60) mL/min BUN/Creatinine Ratio 14.6 (14-18) Glucose 98 (83-115) mg/dL Calcium 9.5 (8.5-10.1) mg/dL Magnesium 1.9 (1.8-2.4) mg/dl C-Reactive Protein 7.7 H* (<1.0) mg/dL C.difficile [id number] Presumptive negative C. difficile Tox (PCR) Negative Pawel Results Last 24 Hours: Microbiology 02/07/19 19:47 Aerobic Blood Culture - Preliminary Blood - Venous NO GROWTH AFTER 4 DAYS Anaerobic Blood Culture - Preliminary NO GROWTH AFTER 4 DAYS 02/07/19 19:31 Aerobic Blood Culture - Preliminary Blood NO GROWTH AFTER 4 DAYS Anaerobic Blood Culture - Preliminary NO GROWTH AFTER 4 DAYS Med Orders - Current: Current Medications Acetaminophen (Tylenol) 650 mg PO Q4H PRN PRN Reason: Pain (Mild 1-3)/fever Last Admin: 02/12/19 08:30 Dose: 650 mg Hydrocodone Bitart/Acetaminophen ([place] 325-5 Mg) 1 tab PO Q4H PRN PRN Reason: Pain (moderate 4-6) Last Admin: 02/10/19 18:36 Dose: 1 tab Albuterol (Proventil Hfa) 0 gm INH QIDRT PRN PRN Reason: SOB/Wheezing Albuterol/Ipratropium (Duoneb 3.0-0.5 Mg/3 Ml) [address] [facility] Last Admin: 02/12/19 09:03 Dose: 3 ml Ascorbic Acid (Vitamin C) [address] [facility] Last Admin: 02/12/19 08:45 Dose: 500 mg Aspirin (Aspirin) [address] [facility] Last Admin: 02/11/19 21:12 Dose: 81 mg Bisacodyl (Dulcolax) 5 mg PO DAILY PRN PRN Reason: Constipation Last Admin: 02/09/19 18:41 Dose: 5 mg Calcium Carbonate (Calcium Carbonate/Vitamin D 600 Mg-200 Unit) [address] [facility] Last Admin: 02/12/19 08:47 Dose: 1 tab Cyanocobalamin (Vitamin B12) [address] [facility] Last Admin: 02/11/19 21:10 Dose: 500 mcg Diphenhydramine HCl (Benadryl) 25 mg PO BEDTIME PRN PRN Reason: INSOMNIA Docusate Sodium (Colace) 100 mg PO BID PRN PRN Reason: Constipation Furosemide (Lasix) [address] [facility] Last Admin: 02/12/19 08:46 Dose: 40 mg Hydromorphone HCl (Dilaudid) 0.25 mg IVPUSH Q2H PRN PRN Reason: Pain (severe 7-10) Promethazine HCl 6.25 mg/ (Sodium Chloride) 50.25 mls @ 100 mls/hr IV Q6H PRN PRN Reason: Nausea/Vomiting Sodium Chloride (Normal Saline) 1,000 mls @ 25 mls/hr IV ASDIRECTED [facility] Stop: 02/13/19 12:08 Last Admin: 02/11/19 16:21 Dose: 25 mls/hr Cefepime HCl 2 gm/ Premix 50 mls @ 100 mls/hr IV Q8H [facility] Last Admin: 02/12/19 04:30 Dose: 100 mls/hr Ketorolac Tromethamine (Toradol) 30 mg IV Q6H PRN PRN Reason: Pain (moderate 4-6) Last Admin: 02/10/19 21:05 Dose: 30 mg Magnesium Oxide (Magnesium Oxide) [address] [facility] Last Admin: 02/12/19 08:47 Dose: 400 mg Glucosamine 1500 Mg/Chondroitin 1200 Mg* *Own Med [address] [facility] Last Admin: 02/11/19 21:17 Dose: 2 each Fluticasone/Salmeterol 100/50 McgOwn Med [address] [facility] Last Admin: 02/12/19 09:04 Dose: 1 puff Ondansetron HCl (Zofran) 4 mg IV Q6H PRN PRN Reason: Nausea/Vomiting Last Admin: 02/08/19 17:49 Dose: 4 mg Oral Electrolytes (Thermotabs) [address] [facility] Last Admin: 02/12/19 08:45 Dose: 2 each Estradiol [Vagifem] (10 Mcg Ptom) [address] [facility] Saccharomyces Boulardii (Florastor) [address] [facility] Last Admin: 02/12/19 08:44 Dose: 250 mg Senna/Docusate Sodium (Senna Plus) 1 tab PO BID PRN PRN Reason: Constipation Simvastatin (Zocor) [address] [facility] Last Admin: 02/11/19 21:11 Dose: 20 mg Sodium Chloride (Saline Flush) 10 ml FLUSH ASDIRECTED PRN PRN Reason: Keep Vein Open Last Admin: 02/07/19 17:00 Dose: 10 ml Temazepam (Restoril) 7.5 mg PO BEDTIME PRN PRN Reason: Sleep Discontinued Medications Albuterol (Proventil Hfa) [address] [facility] Last Admin: 02/08/19 09:34 Dose: 2 puff Albuterol/Ipratropium (Duoneb 3.0-0.5 Mg/3 Ml) 3 ml NEB Q4H PRN PRN Reason: Shortness Of Breath/wheezing Hydromorphone HCl (Dilaudid) 0.5 mg IM ONETIME ONE Stop: 02/07/19 12:48 Last Admin: 02/07/19 12:55 Dose: 0.5 mg Cefoxitin Sodium 1 gm/ Premix 50 mls @ 100 mls/hr IV Q8H [facility] Last Admin: 02/09/19 08:45 Dose: 100 mls/hr Vancomycin HCl 1 gm/ Sodium (Chloride) 250 mls @ 250 mls/hr IV Q24H [facility] Last Admin: 02/08/19 15:58 Dose: 250 mls/hr Magnesium Sulfate 4 gm/ Premix 50 mls @ 12.5 mls/hr IV ONETIME ONE Stop: 02/09/19 13:30 Last Admin: 02/09/19 10:08 Dose: 12.5 mls/hr Magnesium Sulfate 4 gm/ Premix 50 mls @ 12.5 mls/hr IV ONETIME ONE Stop: 02/11/19 13:18 Last Admin: 02/11/19 09:54 Dose: 12.5 mls/hr Cefepime HCl (Maxipime In D5w 2 Gm/50 Ml) Confirm Administered Dose 50 mls @ as directed .ROUTE .STK-MED ONE Stop: 02/11/19 13:04 Last Admin: 02/11/19 15:53 Dose: Not Given Magnesium Hydroxide (Milk Of Magnesia) 30 ml PO ONETIME ONE Stop: 02/10/19 04:41 Last Admin: 02/10/19 04:50 Dose: 30 ml Non-Formulary Medication (Denosumab [Prolia]) [address] [facility] Fluticasone/Salmeterol 100/50 McgOwn Med [address] [facility] Last Admin: 02/08/19 09:34 Dose: 1 puff Pravastatin 40 Mg (Own Med) [address] [facility] Last Admin: 02/07/19 22:42 Dose: 40 mg Glucosamine 1500 Mg/Chondroitin 1200 Mg* *Own Med [address] [facility] Last Admin: 02/07/19 22:42 Dose: 2 each Ondansetron HCl (Zofran Odt) 4 mg PO ONETIME ONE Stop: 02/07/19 12:48 Last Admin: 02/07/19 12:54 Dose: 4 mg Vancomycin HCl (Pharmacy To Dose - Vancomycin) 1 dose .XX ASDIRECTED PRN PRN Reason: RX TO DOSE VANCO Vancomycin HCl (Vancomycin) [address] [facility] Last Admin: 02/12/19 08:47 Dose: 125 mg - Exam Quality Assessment: Supplemental Oxygen General: Alert, Oriented HEENT: Pupils Equal, Mucous Membr. Moist/[place] Neck: Supple Lungs: Decreased Breath Sounds, Rhonchi Cardiovascular: Regular Rate, Regular Rhythm GI/Abdominal Exam: Normal Bowel Sounds, Soft, Non-Tender Extremities: Other (Right foot is significantly less swollen and red.) Psy/Mental Status: Alert, Normal Affect, Normal Mood - Problem List Review Problem List Initiated/Reviewed/Updated: Yes - My Orders Last 24 Hours: My Active Orders 02/11/19 11:53 Isolation [COMM] Stat 02/12/19 Breakfast Fluid Restriction [DIET] - Plan Plan:: Assessment: Acute: SSTI Right Foot he now is he is a revision no - Started 2 weeks ago already on Cipro 250 mg po BID - Saw Dr. Vasquez with negative x-rays, was told to keep it moist and elevated foot - Went to [place] Tuesday to see ID and her Cipro was increased to 500 mg po BID - Comes back with worsening erythema and edema - She is not immuno-suppressed - Duplex U/S: negative for blood clot - cefepime 2 g every 8 hours - Antibiotic ointment to foot Exacerbation of COPD with positive cultures to pseudomonas aeruginosa - Switch antibiotics to cefepime 2 g every 8 hours - Incentive spirometry - Chest x-ray is concerning for early pneumonia, that does not fit the clinical picture with a normal white count. Left Near Elbow Rash - Started 3 weeks ago - Healing well liquid diarrhea- likely secondary to laxatives - history multiple antibiotics: ciprofloxacin for 3 weeks, cefoxitin, and now cefepime, which would set her up for C. difficile. - C. difficile PCR and toxin negative - Stop oral vancomycin Chronic: Seizure Disorder, Anxiety, Depression and Hx/o Obesity Plan: Admit to inpatient Resume Home Meds Routine AM Labs DVT/GI Prophylaxis Fall Precautions cefepime 10 days. 2 g every 8 hours while an inpatient and then switch to every 12 hours when discharged per ID. SW/CM for d/c planning Code status: 1 Length of stay greater than 96 hours because of Pseudomonas COPD only being sensitive to IV antibiotics. Plan for discharge next couple of days with IV antibiotics.
[2019-02-12] MEDS: Sodium Chloride 0.9% 1,000 ML IV SCH (17:43)
[2019-02-12] MEDS: Cyanocobalamin (Vitamin B12) 1,000 MCG Tab PO SCH (20:49)
[2019-02-12] MEDS: Simvastatin 20 MG Tab PO SCH (20:50)
[2019-02-12] MEDS: Aspirin 81 MG Tab.Chew PO SCH (20:50)
[2019-02-12] MEDS: GLUCOSAMINE PO SCH (20:53)
[2019-02-12] MEDS: CHONDROITIN PO SCH (20:53)
[2019-02-13] MEDS: Acetaminophen 325 MG Tab PO PRN ×5 (00:12→21:12)
[2019-02-13] MEDS: Cefepime 2 GM in Premix Bag 1 BAG IV SCH ×3 (05:36→21:10)
[2019-02-13] MEDS: Albuterol/Ipratropium 3.0-0.5 MG/3 ML Neb Soln NEB SCH ×4 (06:28→20:54)
[2019-02-13] MEDS: SALMETEROL PO SCH ×2 (08:52→20:54)
[2019-02-13] MEDS: FLUTICASONE PO SCH ×2 (08:52→20:54)
[2019-02-13] MEDS: Calcium Carbonate/Vitamin D3 600 MG-200 Units Tab PO SCH ×2 (09:27→21:11)
[2019-02-13] MEDS: Furosemide 40 MG Tab PO SCH (09:29)
[2019-02-13] MEDS: Saccharomyces Boulardii (Probiotic) 250 MG Cap PO SCH (09:30)
[2019-02-13] MEDS: Sodium Chloride/Potassium Chloride Tab PO SCH ×3 (09:31→21:12)
[2019-02-13] MEDS: Ascorbic Acid 500 MG Tab PO SCH (09:32)
[2019-02-13] MEDS: Magnesium Oxide 400 MG Tab PO SCH ×2 (09:32→21:12)
[2019-02-13] MEDS ORDERED: fentaNYL 100 MCG/2 ML SDV ONE (09:56)
[2019-02-13] MEDS ORDERED: fentaNYL 100 MCG/2 ML SDV IVPUSH ONE (09:59)
[2019-02-13] MEDS: guaiFENesin 600 MG Tab.ER PO SCH ×2 (11:09→21:12)
[2019-02-13] MEDS: ALBUTEROL INH PRN ×2 (11:19→16:35)
--- NOTE | 2019-02-13 11:19 | PCM.SN ---
- Free Text/Narrative Note: Date: 02/13/2019 Start: 1002 Time-out/start Stop: [address] Louie for PICC placement for usp antibiotic use. Chart reviewed. Patient and family educated. Agrees to proceed. Consent signed. Site cleansed with ChloraPrep X2 and allowed to dry. A total of 5 mL Lidocaine 1% local anesthetic injected prior to 20ga IV catheter insertion. Sterile gown , gloves and drape used. Under ultrasound localization the basilic vein was located in the proximal right antecubital fossa and 20 g IV was started. Unable to thread wire despite blood flow. Repeated this more proximally, but with the same results. Elected to cannulate brachial vein superior to brachial artery, slightly more proximal than previous attempts to good effect. Wire threaded easily. 4fr [employer] NXT ClearVue PICC, REF [id number], LOT [id number], EXP 2019, inserted 45 cm at the skin per sterile technique in proximal right antecubital brachial vein. Secured with statlock. Flushes well with 20 mL NaCl with good blood return. Dressed with Opsite with CHG. Approximately 8 cm PICC catheter remains out for measurement purposes. Chest Xray taken. Confirmed aortocaval junction placement per radiologist.
--- NOTE | 2019-02-13 11:27 | CR ---
Chest: Portable view of the chest is obtained (10:38 AM). Comparison: Previous chest x-ray performed earlier on the same day (10:37 AM). Findings: Tip of PICC line is again not well seen. IV contrast could be injected through the PICC line to determine position of tip. Other portions of the chest are unchanged. Impression: 1. Right-sided PICC line. Tip remains difficult to see. Contrast could be injected through the PICC line and repeat chest x-ray to confirm position. Diagnostic code #3
--- NOTE | 2019-02-13 11:27 | CR ---
Chest: Portable supine view of the chest is obtained (10:37 AM). Comparison: Prior chest x-ray performed earlier on the same day (10:35 AM). Right-sided PICC line again seen. Tip difficult to see but likely lies near the right atrial and superior vena cava junction. Other portions of the chest also remain unchanged. Impression: 1. Right-sided PICC line with tip being difficult to see but most likely at the right atrial and superior vena cava junction. 2. Other portions of the chest are stable. Diagnostic code #2
--- NOTE | 2019-02-13 11:27 | CR ---
Chest: Portable supine view of the chest was obtained (10:35 AM). Comparison: Prior chest x-ray of 02/09/19. Right-sided PICC line is seen. Tip of PICC line is difficult to identify but most likely lies near the junction of superior vena cava and right atria. Other portions of the chest are stable from previous exam. Impression: 1. PICC line with tip difficult to see but likely lies near the right atrial and superior vena cava junction. Diagnostic code #2
--- NOTE | 2019-02-13 12:56 | PCM.SN ---
- Free Text/Narrative Note: [facility] nursing called to ask what to do about using the PICC line. The radiology report stated that it was unclear where the tip of the PICC line resided and recommended contrast medium through the line in order to read placement. Radiology will be available tomorrow to confirm placement of line tip and readiness for us. I informed [facility] charge nurse and family of the plan.
--- NOTE | 2019-02-13 13:02 | PCM.PN ---
- General Info Date of Service: 02/13/19 Admission Dx/Problem (Free Text): Admission Diagnosis/Problem Admission Diagnosis/Problem Cellulitis Subjective Update: Patient continues to get better. Right foot is significantly improved. Cough is still mildly productive. PICC line is scheduled for today. Functional Status: Reports: Pain Controlled - Review of Systems General: Reports: No Symptoms HEENT: Reports: No Symptoms Pulmonary: Reports: Cough, Sputum. Denies: Hemoptysis Cardiovascular: Reports: No Symptoms Gastrointestinal: Reports: No Symptoms - Patient Data Vitals - Most Recent: Last Vital Signs Temp 97.5 F 02/13/19 02:04 Pulse 103 H 02/13/19 02:04 Resp 22 H 02/13/19 02:04 BP 133/80 02/13/19 02:04 Pulse Ox 90 L 02/13/19 11:21 Weight - Most Recent: 143 lb 1.6 oz I&O - Last 24 Hours: Intake & Output 02/12/19 02/13/19 02/13/19 22:59 06:59 14:59 Intake Total 881 821 120 Output Total 1400 1550 Balance -519 -729 120 Lab Results Last 24 Hours: Laboratory Results - last 24 hr 02/13/19 02/13/19 02/13/19 Range/Units 08:25 08:25 08:25 WBC 14.63 H (3.98-10.04) K/mm3 RBC 3.49 L (3.98-5.22) M/mm3 Hgb 10.7 L (11.2-15.7) gm/dl Hct 32.3 L (34.1-44.9) % MCV 92.6 (79.4-94.8) fl MCH 30.7 (25.6-32.2) pg MCHC 33.1 (32.2-35.5) g/dl RDW Std Deviation 46.0 (36.4-46.3) fL Plt Count 367 (182-369) K/mm3 MPV 9.6 (9.4-12.3) fl Neut % (Auto) 77.8 H (34.0-71.1) % Lymph % (Auto) 7.7 L (19.3-51.7) % [place] % (Auto) 10.4 (4.7-12.5) % Eos % (Auto) 3.6 (0.7-5.8) Baso % (Auto) 0.5 (0.1-1.2) % Neut # (Auto) 11.39 H (1.56-6.13) K/mm3 Lymph # (Auto) 1.12 L (1.18-3.74) K/mm3 [place] # (Auto) 1.52 H (0.24-0.36) K/mm3 Eos # (Auto) 0.53 H (0.04-0.36) K/mm3 Baso # (Auto) 0.07 (0.01-0.08) K/mm3 Manual Slide Review Abnormal smear Sodium 135 L (136-145) mEq/L Potassium 5.1 (3.5-5.1) mEq/L Chloride 99 (98-107) mEq/L Carbon Dioxide 28 (21-32) mEq/L Anion Gap 13.1 (5-15) BUN 20 H (7-18) mg/dL Creatinine 1.2 H (0.55-1.02) mg/dL Est Cr Clr Drug Dosing 36.17 mL/min Estimated GFR (MDRD) 43 (>60) mL/min BUN/Creatinine Ratio 16.7 (14-18) Glucose 107 (83-115) mg/dL Calcium 10.1 (8.5-10.1) mg/dL C-Reactive Protein 6.6 H* (<1.0) mg/dL Pawel Results Last 24 Hours: Microbiology 02/07/19 19:47 Aerobic Blood Culture - Preliminary Blood - Venous NO GROWTH AFTER 5 DAYS Anaerobic Blood Culture - Preliminary NO GROWTH AFTER 5 DAYS 02/07/19 19:31 Aerobic Blood Culture - Preliminary Blood NO GROWTH AFTER 5 DAYS Anaerobic Blood Culture - Preliminary NO GROWTH AFTER 5 DAYS Med Orders - Current: Current Medications Acetaminophen (Tylenol) 650 mg PO Q4H PRN PRN Reason: Pain (Mild 1-3)/fever Last Admin: 02/13/19 11:07 Dose: 650 mg Hydrocodone Bitart/Acetaminophen ([place] 325-5 Mg) 1 tab PO Q4H PRN PRN Reason: Pain (moderate 4-6) Last Admin: 02/10/19 18:36 Dose: 1 tab Albuterol (Proventil Hfa) 0 gm INH QIDRT PRN PRN Reason: SOB/Wheezing Last Admin: 02/13/19 11:19 Dose: 2 puff Albuterol/Ipratropium (Duoneb 3.0-0.5 Mg/3 Ml) 3 ml NEB QIDRT [facility] Last Admin: 02/13/19 08:59 Dose: 3 ml Ascorbic Acid (Vitamin C) 500 mg PO DAILY [facility] Last Admin: 02/13/19 09:32 Dose: 500 mg Aspirin (Aspirin) 81 mg PO BEDTIME [facility] Last Admin: 02/12/19 20:50 Dose: 81 mg Bisacodyl (Dulcolax) 5 mg PO DAILY PRN PRN Reason: Constipation Last Admin: 02/09/19 18:41 Dose: 5 mg Calcium Carbonate (Calcium Carbonate/Vitamin D 600 Mg-200 Unit) 1 tab PO BID [facility] Last Admin: 02/13/19 09:27 Dose: 1 tab Cyanocobalamin (Vitamin B12) 500 mcg PO BEDTIME [facility] Last Admin: 02/12/19 20:49 Dose: 500 mcg Diphenhydramine HCl (Benadryl) 25 mg PO BEDTIME PRN PRN Reason: INSOMNIA Docusate Sodium (Colace) 100 mg PO BID PRN PRN Reason: Constipation Furosemide (Lasix) 40 mg PO DAILY [facility] Last Admin: 02/13/19 09:29 Dose: 40 mg Guaifenesin (Mucinex) 600 mg PO BID [facility] Last Admin: 02/13/19 11:09 Dose: 600 mg Hydromorphone HCl (Dilaudid) 0.25 mg IVPUSH Q2H PRN PRN Reason: Pain (severe 7-10) Promethazine HCl 6.25 mg/ (Sodium Chloride) 50.25 mls @ 100 mls/hr IV Q6H PRN PRN Reason: Nausea/Vomiting Cefepime HCl 2 gm/ Premix 50 mls @ 100 mls/hr IV Q8H [facility] Last Admin: 02/13/19 12:15 Dose: 100 mls/hr Ketorolac Tromethamine (Toradol) 30 mg IV Q6H PRN PRN Reason: Pain (moderate 4-6) Last Admin: 02/10/19 21:05 Dose: 30 mg Magnesium Oxide (Magnesium Oxide) 400 mg PO BID [facility] Last Admin: 02/13/19 09:32 Dose: 400 mg Glucosamine 1500 Mg/Chondroitin 1200 Mg* *Own Med 2 each PO BEDTIME [facility] Last Admin: 02/12/19 20:53 Dose: 2 each Fluticasone/Salmeterol 100/50 McgOwn Med 1 puff PO BID [facility] Last Admin: 02/13/19 08:52 Dose: 1 puff Ondansetron HCl (Zofran) 4 mg IV Q6H PRN PRN Reason: Nausea/Vomiting Last Admin: 02/08/19 17:49 Dose: 4 mg Oral Electrolytes (Thermotabs) 1 each PO TID [facility] Last Admin: 02/13/19 09:31 Dose: 1 each Estradiol [Vagifem] (10 Mcg Ptom) 0 each VAG ASDIRECTED [facility] Saccharomyces Boulardii (Florastor) 250 mg PO DAILY [facility] Last Admin: 02/13/19 09:30 Dose: 250 mg Senna/Docusate Sodium (Senna Plus) 1 tab PO BID PRN PRN Reason: Constipation Simvastatin (Zocor) 20 mg PO BEDTIME [facility] Last Admin: 02/12/19 20:50 Dose: 20 mg Sodium Chloride (Saline Flush) 10 ml FLUSH ASDIRECTED PRN PRN Reason: Keep Vein Open Last Admin: 02/07/19 17:00 Dose: 10 ml Temazepam (Restoril) 7.5 mg PO BEDTIME PRN PRN Reason: Sleep Discontinued Medications Albuterol (Proventil Hfa) 0 gm INH QIDRT [facility] Last Admin: 02/08/19 09:34 Dose: 2 puff Albuterol/Ipratropium (Duoneb 3.0-0.5 Mg/3 Ml) 3 ml NEB Q4H PRN PRN Reason: Shortness Of Breath/wheezing Fentanyl (Sublimaze) Confirm Administered Dose 100 mcg .ROUTE .STK-MED ONE Stop: 02/13/19 09:57 Last Admin: 02/13/19 11:15 Dose: Not Given Hydromorphone HCl (Dilaudid) 0.5 mg IM ONETIME ONE Stop: 02/07/19 12:48 Last Admin: 02/07/19 12:55 Dose: 0.5 mg Cefoxitin Sodium 1 gm/ Premix 50 mls @ 100 mls/hr IV Q8H [facility] Last Admin: 02/09/19 08:45 Dose: 100 mls/hr Vancomycin HCl 1 gm/ Sodium (Chloride) 250 mls @ 250 mls/hr IV Q24H MICHELA Last Admin: 02/08/19 15:58 Dose: 250 mls/hr Magnesium Sulfate 4 gm/ Premix 50 mls @ 12.5 mls/hr IV ONETIME ONE Stop: 02/09/19 13:30 Last Admin: 02/09/19 10:08 Dose: 12.5 mls/hr Sodium Chloride (Normal Saline) 1,000 mls @ 25 mls/hr IV ASDIRECTED MICHELA Stop: 02/13/19 12:08 Last Admin: 02/12/19 17:43 Dose: 25 mls/hr Magnesium Sulfate 4 gm/ Premix 50 mls @ 12.5 mls/hr IV ONETIME ONE Stop: 02/11/19 13:18 Last Admin: 02/11/19 09:54 Dose: 12.5 mls/hr Cefepime HCl (Maxipime In D5w 2 Gm/50 Ml) Confirm Administered Dose 50 mls @ as directed .ROUTE .STK-MED ONE Stop: 02/11/19 13:04 Last Admin: 02/11/19 15:53 Dose: Not Given Influenza Virus Vaccine (Pharmacy To Dose - Influenza Vaccine) 1 each IM ONETIME ONE Stop: 02/12/19 18:33 Influenza Virus Vaccine (Fluzone High-Dose 2018-20 Syringe) 180 mcg IM .ONCE ONE Stop: 02/12/19 18:46 Magnesium Hydroxide (Milk Of Magnesia) 30 ml PO ONETIME ONE Stop: 02/10/19 04:41 Last Admin: 02/10/19 04:50 Dose: 30 ml Non-Formulary Medication (Denosumab [Prolia]) 1 injection SQ ASDIRECTED [facility] Fluticasone/Salmeterol 100/50 McgOwn Med 1 puff PO BID [facility] Last Admin: 02/08/19 09:34 Dose: 1 puff Pravastatin 40 Mg (Own Med) 40 mg PO BEDTIME [facility] Last Admin: 02/07/19 22:42 Dose: 40 mg Glucosamine 1500 Mg/Chondroitin 1200 Mg* *Own Med 2 each PO BEDTIME [facility] Last Admin: 02/07/19 22:42 Dose: 2 each Ondansetron HCl (Zofran Odt) 4 mg PO ONETIME ONE Stop: 02/07/19 12:48 Last Admin: 02/07/19 12:54 Dose: 4 mg Oral Electrolytes (Thermotabs) 2 each PO TID [facility] Last Admin: 02/12/19 14:32 Dose: 2 each Vancomycin HCl (Pharmacy To Dose - Vancomycin) 1 dose .XX ASDIRECTED PRN PRN Reason: RX TO DOSE VANCO Vancomycin HCl (Vancomycin) 125 mg PO QID [facility] Last Admin: 02/12/19 08:47 Dose: 125 mg - Exam General: Alert, Oriented HEENT: Pupils Equal, Mucous Membr. Moist/[place] Neck: Supple Lungs: Decreased Breath Sounds, Wheezing Cardiovascular: Regular Rate, Regular Rhythm GI/Abdominal Exam: Normal Bowel Sounds, Soft, Non-Tender, No Organomegaly, No Distention, No Abnormal Bruit, No Mass Extremities: Normal Inspection, Normal Range of Motion, Non-Tender, No Pedal Edema, Normal Capillary Refill Skin: Warm, Dry, Intact Neurological: No New Focal Deficit Psy/Mental Status: Alert, Normal Affect, Normal Mood - Problem List Review Problem List Initiated/Reviewed/Updated: Yes - My Orders Last 24 Hours: My Active Orders 02/12/19 18:32 Influenza Vaccine Charge [RC] .DISCHARGE 02/12/19 21:00 Sodium Chloride/KCl [Thermotabs] 1 each PO TID 02/13/19 09:30 guaiFENesin [Mucinex] 600 mg PO BID - Plan Plan:: Assessment: Acute: SSTI Right Foot - Much improved. 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 - PICC line for outpatient cefepime. Left Near Elbow Rash - Started 3 weeks ago - Healing well liquid diarrhea- likely secondary to laxatives - history multiple antibiotics: ciprofloxacin for 3 weeks, cefoxitin, and now cefepime, which would set her up for C. difficile. - C. difficile PCR and toxin negative - Stop oral vancomycin Chronic: Seizure Disorder, Anxiety, Depression and Hx/o Obesity Plan: Admit to inpatient Resume Home Meds Routine AM Labs DVT/GI Prophylaxis Fall Precautions cefepime 10 days. 2 g every 8 hours while an inpatient and then switch to every 12 hours when discharged per ID. SW/CM for d/c planning Code status: 1 Length of stay greater than 96 hours because of Pseudomonas COPD only being sensitive to IV antibiotics. Plan for discharge next couple of days with IV antibiotics.
[2019-02-13] MEDS ORDERED: Sodium Chloride 0.9% 1,000 ML IV SCH (14:30)
[2019-02-13] MEDS: Simvastatin 20 MG Tab PO SCH (21:12)
[2019-02-13] MEDS: Aspirin 81 MG Tab.Chew PO SCH (21:12)
[2019-02-13] MEDS: CHONDROITIN PO SCH (21:13)
[2019-02-13] MEDS: GLUCOSAMINE PO SCH (21:13)
[2019-02-13] MEDS: Cyanocobalamin (Vitamin B12) 1,000 MCG Tab PO SCH (21:13)
[2019-02-14] MEDS: Acetaminophen 325 MG Tab PO PRN ×2 (02:02→11:11)
[2019-02-14] MEDS: Albuterol/Ipratropium 3.0-0.5 MG/3 ML Neb Soln NEB SCH ×2 (05:24→11:10)
[2019-02-14] MEDS: Cefepime 2 GM in Premix Bag 1 BAG IV SCH ×2 (05:50→12:25)
[2019-02-14] MEDS: Ondansetron 4 MG/2 ML SDV IV PRN (06:29)
--- NOTE | 2019-02-14 07:47 | PCM.DCSUM1 ---
Discharge Summary - Hospital Course HPI Initial Comments: This is a 78 yo elderly white female with past medical hx/o Seizure Disorder, Anxiety, Depression and Hx/o Obesity who comes in for worsening right foot cellulitis that started a couple of weeks ago. She states she was initially seen by her PCP for right elbow rash and prescribed with oral Cipro 250 mg po BID 3 weeks ago with no issues with her right foot at that time. A week after that, she noticed a lesion at the back of her right foot followed by redness and edema which slowly spread to her entire foot (dorsal aspect). She was seen and evaluated by Podiatry this past but no abnormal findings found. In fact, she was told it was healing and to continue conservative management. Come Tuesday, she went to [place] to see ID and her Cipro was increased to 500 mg po BID. However she felt no improvement. Hence, she presented to the hospital for further evaluation and management. Her initial work up in ED is unremarkable. She reports subjective fever or chills. She denies any GI/ issues. Patient is primarily coming in for treatment of cellulitis. Diagnosis: Stroke: No - Discharge Data Discharge Date: 02/14/19 Discharge Disposition: Home, Self-Care 01 Condition: Good - Referral to Home Health Primary Care Physician: Quique Meneses MD - Patient Summary/Data Consults: Consultations 02/07/19 18:56 Consult to Case Management/Group Controller [CONS] Routine Consult to Spiritual Care [CONS] Routine OT Evaluation and Treatment [CONS] Routine PT Evaluation and Treatment [CONS] Routine Hospital Course: Patient was admitted and started on vancomycin and cefoxitin. Old records were obtained and patient was being treated with ciprofloxacin for her exacerbation of her chronic bronchitis. She was being seen by Dr. Negrete infectious disease specialist at [facility] in [place]. I spoke with Dr. Negrete and she recommended switching her to cefepime, Pseudomonas was intermediately sensitive, but she could go home on a every 12 hour dosing. Ball in the hospital she was placed on cefepime 2 g every 8 hours and her right foot cellulitis had a significant improvement. She did have an increase in her white count from 9-14 the second day before discharge and decreased back to 10 on the day of discharge. She has been afebrile and clinically improved. Patient is much better symptomatically today and lung sounds are much clearer. Right foot continues to be improved. Patient will be discharged on cefepime 2 g every 12 hours. She did complain on the day of discharge of her rash on the left posterior upper arm has returned. It is itchy. She was given hydrocortisone cream and this can be reevaluated by her primary care provider. Patient also has a history of hyponatremia. On admission her sodium was 130. This decreased to 126 and with fluid restriction and salt tablets increased 135. When fluid restriction was removed her sodium level dropped right back down to 128. Patient was encouraged to fluid restrict at home and she'll need a repeat sodium as an outpatient. - Patient Instructions Diet: Usual Diet as Tolerated Driving: Do Not Drive Showering/Bathing: May Shower Other/Special Instructions: Follow up with Dr. Leyva and Dr. Negrete next week. - Discharge Plan *PRESCRIPTION DRUG MONITORING PROGRAM REVIEWED*: No *COPY OF PRESCRIPTION DRUG MONITORING REPORT IN PATIENT TETO: No Prescriptions/Med Rec: Cefepime [Maxipime in D5W 2 GM/50 ML] 2 gm IV Q8H 9 Days bag guaiFENesin [Mucinex] 600 mg PO BID #60 tab.er Home Medications: Home Meds Albuterol [Ventolin HFA] 2 puff INH QID 02/12/15 [History] Calcium Carbonate/Vitamin D3 [Calcium 600 + Vit D Tablet] 1 each PO BID [History] Cyanocobalamin (Vitamin B12) [Vitamin B12] 500 mcg PO BEDTIME 02/12/15 [History] Fluticasone/Salmeterol [Advair Diskus 250-50] 1 puff PO BID 02/12/15 [History] Furosemide [Lasix] 40 mg PO DAILY 02/12/15 [History] Pravastatin [Pravachol] 40 mg PO DAILY 02/12/15 [History] Ascorbate Calcium [Vitamin C] 500 mg PO DAILY 02/18/17 [History] Denosumab [Prolia] 1 injection SQ ASDIRECTED 02/18/17 [History] Estradiol [Vagifem] 10 mcg VAG ASDIRECTED 02/18/17 [History] diphenhydrAMINE [Benadryl] 25 mg PO BEDTIME PRN 02/18/17 [History] Aspirin 81 mg PO BEDTIME 02/07/19 [History] Glucosamine/Chondro Gonzales A [Cosamin DS] 2 each PO 02/07/19 [History] Non-Formulary Medication [NF Drug] 2 each PO BEDTIME 02/07/19 [History] Cefepime [Maxipime in D5W 2 GM/50 ML] 2 gm IV Q8H 9 Days bag 02/14/19 [Rx] Hydrocortisone [Hydrocortisone 1% Crm] 30 gm TOP TID tube 02/14/19 [Rx] guaiFENesin [Mucinex] 600 mg PO BID #60 tab.er 02/14/19 [Rx] Patient Handouts: Pursed Lip Breathing, Steps to Quit Smoking Forms: ED Department Discharge Referrals: Quique Meneses MD [Primary Care Provider] - - Discharge Summary/Plan Comment DC Time >30 min.: Yes Discharge Summary/Plan Comment: discharge home to follow-up with PCP on Tuesday. She should have repeat labs to include a CBC and CMP at that time. If she develops any fever or worsening of her condition she should return to the emergency room. follow-up with infectious disease specialist next week. cefepime 2 g every 12 hours for 3 day. - General Info Date of Service: 02/14/19 Admission Dx/Problem (Free Text: Admission Diagnosis/Problem Admission Diagnosis/Problem Cellulitis Subjective Update: patient states she is doing much better. She did use her albuterol last night and this helped her breathing. She also had some nausea and received Zofran last night. Functional Status: Reports: Pain Controlled - Review of Systems General: Reports: No Symptoms HEENT: Reports: No Symptoms Pulmonary: Reports: Cough, Sputum Cardiovascular: Reports: No Symptoms Gastrointestinal: Reports: No Symptoms - Patient Data Vitals - Most Recent: Last Vital Signs Temp 98.6 F 02/14/19 01:39 Pulse 90 02/14/19 01:39 Resp 20 02/14/19 01:39 BP 135/68 02/14/19 01:39 Pulse Ox 96 02/14/19 05:24 Weight - Most Recent: 140 lb 14.4 oz I&O - Last 24 hours: Intake & Output 02/13/19 02/14/19 02/14/19 22:59 06:59 14:59 Intake Total 1368 850 Output Total 1900 1100 Balance -532 -250 Lab Results - Last 24 hrs: Laboratory Results - last 24 hr 02/13/19 02/13/1902/13/19 Range/Units 08:25 08:25 08:25 WBC 14.63 H (3.98-10.04) K/mm3 RBC 3.49 L (3.98-5.22) M/mm3 Hgb 10.7 L (11.2-15.7) gm/dl Hct 32.3 L (34.1-44.9) % MCV 92.6 (79.4-94.8) fl MCH 30.7 (25.6-32.2) pg MCHC 33.1 (32.2-35.5) g/dl RDW Std Deviation 46.0 (36.4-46.3) fL Plt Count 367 (182-369) K/mm3 MPV 9.6 (9.4-12.3) fl Neut % (Auto) 77.8 H (34.0-71.1) % Lymph % (Auto) 7.7 L (19.3-51.7) % [place] % (Auto) 10.4 (4.7-12.5) % Eos % (Auto) 3.6 (0.7-5.8) Baso % (Auto) 0.5 (0.1-1.2) % Neut # (Auto) 11.39 H (1.56-6.13) K/mm3 Lymph # (Auto) 1.12 L (1.18-3.74) K/mm3 [place] # (Auto) 1.52 H (0.24-0.36) K/mm3 Eos # (Auto) 0.53 H (0.04-0.36) K/mm3 Baso # (Auto) 0.07 (0.01-0.08) K/mm3 Manual Slide Review Abnormal smear Sodium 135 L (136-145) mEq/L Potassium 5.1 (3.5-5.1) mEq/L Chloride 99 (98-107) mEq/L Carbon Dioxide 28 (21-32) mEq/L Anion Gap 13.1 (5-15) BUN 20 H (7-18) mg/dL Creatinine 1.2 H (0.55-1.02) mg/dL Est Cr Clr Drug Dosing 36.17 mL/min Estimated GFR (MDRD) 43 (>60) mL/min BUN/Creatinine Ratio 16.7 (14-18) Glucose 107 (83-115) mg/dL Calcium 10.1 (8.5-10.1) mg/dL C-Reactive Protein 6.6 H* (<1.0) mg/dL 02/14/19 Range/Units 07:15 WBC 10.51 H (3.98-10.04) K/mm3 RBC 3.08 L (3.98-5.22) M/mm3 Hgb 9.5 L (11.2-15.7) gm/dl Hct 28.5 L (34.1-44.9) % MCV 92.5 (79.4-94.8) fl MCH 30.8 (25.6-32.2) pg MCHC 33.3 (32.2-35.5) g/dl RDW Std Deviation 44.3 (36.4-46.3) fL Plt Count 336 (182-369) K/mm3 MPV 9.4 (9.4-12.3) fl Neut % (Auto) 68.2 (34.0-71.1) % Lymph % (Auto) 12.8 L (19.3-51.7) % [place] % (Auto) 13.6 H (4.7-12.5) % Eos % (Auto) 4.7 (0.7-5.8) Baso % (Auto) 0.7 (0.1-1.2) % Neut # (Auto) 7.17 H (1.56-6.13) K/mm3 Lymph # (Auto) 1.35 (1.18-3.74) K/mm3 [place] # (Auto) 1.43 H (0.24-0.36) K/mm3 Eos # (Auto) 0.49 H (0.04-0.36) K/mm3 Baso # (Auto) 0.07 (0.01-0.08) K/mm3 Manual Slide Review Sodium (136-145) mEq/L Potassium (3.5-5.1) mEq/L Chloride (98-107) mEq/L Carbon Dioxide (21-32) mEq/L Anion Gap (5-15) BUN (7-18) mg/dL Creatinine (0.55-1.02) mg/dL Est Cr Clr Drug Dosing mL/min Estimated GFR (MDRD) (>60) mL/min BUN/Creatinine Ratio (14-18) Glucose (83-115) mg/dL Calcium (8.5-10.1) mg/dL C-Reactive Protein (<1.0) mg/dL FAVIO Results - Last 24 hrs: Microbiology 02/07/19 19:47 Aerobic Blood Culture - Preliminary Blood - Venous NO GROWTH AFTER 6 DAYS Anaerobic Blood Culture - Preliminary NO GROWTH AFTER 6 DAYS 02/07/19 19:31 Aerobic Blood Culture - Preliminary Blood NO GROWTH AFTER 6 DAYS Anaerobic Blood Culture - Preliminary NO GROWTH AFTER 6 DAYS Med Orders - Current: Current Medications Acetaminophen (Tylenol) 650 mg PO Q4H PRN PRN Reason: Pain (Mild 1-3)/fever Last Admin: 02/14/19 02:02 Dose: 650 mg Hydrocodone Bitart/Acetaminophen ([place] 325-5 Mg) 1 tab PO Q4H PRN PRN Reason: Pain (moderate 4-6) Last Admin: 02/10/19 18:36 Dose: 1 tab Albuterol (Proventil Hfa) 0 gm INH QIDRT PRN PRN Reason: SOB/Wheezing Last Admin: 02/13/19 16:35 Dose: 2 puff Albuterol/Ipratropium (Duoneb 3.0-0.5 Mg/3 Ml) 3 ml NEB QIDRT [facility] Last Admin: 02/14/19 05:24 Dose: 3 ml Ascorbic Acid (Vitamin C) 500 mg PO DAILY [facility] Last Admin: 02/13/19 09:32 Dose: 500 mg Aspirin (Aspirin) 81 mg PO BEDTIME [facility] Last Admin: 02/13/19 21:12 Dose: 81 mg Bisacodyl (Dulcolax) 5 mg PO DAILY PRN PRN Reason: Constipation Last Admin: 02/09/19 18:41 Dose: 5 mg Calcium Carbonate (Calcium Carbonate/Vitamin D 600 Mg-200 Unit) 1 tab PO BID [facility] Last Admin: 02/13/19 21:11 Dose: 1 tab Cyanocobalamin (Vitamin B12) 500 mcg PO BEDTIME [facility] Last Admin: 02/13/19 21:13 Dose: 500 mcg Diphenhydramine HCl (Benadryl) 25 mg PO BEDTIME PRN PRN Reason: INSOMNIA Docusate Sodium (Colace) 100 mg PO BID PRN PRN Reason: Constipation Furosemide (Lasix) 40 mg PO DAILY [facility] Last Admin: 02/13/19 09:29 Dose: 40 mg Guaifenesin (Mucinex) 600 mg PO BID [facility] Last Admin: 02/13/19 21:12 Dose: 600 mg Hydrocortisone (Hydrocortisone 1% Crm) 30 gm TOP TID [facility] Hydromorphone HCl (Dilaudid) 0.25 mg IVPUSH Q2H PRN PRN Reason: Pain (severe 7-10) Promethazine HCl 6.25 mg/ (Sodium Chloride) 50.25 mls @ 100 mls/hr IV Q6H PRN PRN Reason: Nausea/Vomiting Cefepime HCl 2 gm/ Premix 50 mls @ 100 mls/hr IV Q8H [facility] Last Admin: 02/14/19 05:50 Dose: 100 mls/hr Sodium Chloride (Normal Saline) 1,000 mls @ 25 mls/hr IV ASDIRECTED [facility] Last Admin: 02/13/19 15:16 Dose: 25 mls/hr Influenza Virus Vaccine (Fluzone High-Dose 2019-20 Syringe) 180 mcg IM .ONCE ONE Stop: 02/14/19 09:01 Ketorolac Tromethamine (Toradol) 30 mg IV Q6H PRN PRN Reason: Pain (moderate 4-6) Last Admin: 02/10/19 21:05 Dose: 30 mg Magnesium Oxide (Magnesium Oxide) 400 mg PO BID [facility] Last Admin: 02/13/19 21:12 Dose: 400 mg Glucosamine 1500 Mg/Chondroitin 1200 Mg* *Own Med 2 each PO BEDTIME [facility] Last Admin: 02/13/19 21:13 Dose: 2 each Fluticasone/Salmeterol 100/50 McgOwn Med 1 puff PO BID [facility] Last Admin: 02/13/19 20:54 Dose: 1 puff Ondansetron HCl (Zofran) 4 mg IV Q6H PRN PRN Reason: Nausea/Vomiting Last Admin: 02/14/19 06:29 Dose: 4 mg Oral Electrolytes (Thermotabs) 1 each PO TID [facility] Last Admin: 02/13/19 21:12 Dose: 1 each Estradiol [Vagifem] (10 Mcg Ptom) 0 each VAG ASDIRECTED [facility] Saccharomyces Boulardii (Florastor) 250 mg PO DAILY [facility] Last Admin: 02/13/19 09:30 Dose: 250 mg Senna/Docusate Sodium (Senna Plus) 1 tab PO BID PRN PRN Reason: Constipation Simvastatin (Zocor) 20 mg PO BEDTIME [facility] Last Admin: 02/13/19 21:12 Dose: 20 mg Sodium Chloride (Saline Flush) 10 ml FLUSH ASDIRECTED PRN PRN Reason: Keep Vein Open Last Admin: 02/07/19 17:00 Dose: 10 ml Temazepam (Restoril) 7.5 mg PO BEDTIME PRN PRN Reason: Sleep Discontinued Medications Albuterol (Proventil Hfa) 0 gm INH QIDRT [facility] Last Admin: 02/08/19 09:34 Dose: 2 puff Albuterol/Ipratropium (Duoneb 3.0-0.5 Mg/3 Ml) 3 ml NEB Q4H PRN PRN Reason: Shortness Of Breath/wheezing Fentanyl (Sublimaze) Confirm Administered Dose 100 mcg .ROUTE .STK-MED ONE Stop: 02/13/19 09:57 Last Admin: 02/13/19 11:15 Dose: Not Given Fentanyl (Sublimaze) 12.5 mcg IVPUSH ONETIME ONE Stop: 02/13/19 10:00 Last Admin: 02/13/19 09:59 Dose: 12.5 mcg Hydromorphone HCl (Dilaudid) 0.5 mg IM ONETIME ONE Stop: 02/07/19 12:48 Last Admin: 02/07/19 12:55 Dose: 0.5 mg Cefoxitin Sodium 1 gm/ Premix 50 mls @ 100 mls/hr IV Q8H [facility] Last Admin: 02/09/19 08:45 Dose: 100 mls/hr Vancomycin HCl 1 gm/ Sodium (Chloride) 250 mls @ 250 mls/hr IV Q24H [facility] Last Admin: 02/08/19 15:58 Dose: 250 mls/hr Magnesium Sulfate 4 gm/ Premix 50 mls @ 12.5 mls/hr IV ONETIME ONE Stop: 02/09/19 13:30 Last Admin: 02/09/19 10:08 Dose: 12.5 mls/hr Sodium Chloride (Normal Saline) 1,000 mls @ 25 mls/hr IV ASDIRECTED [facility] Stop: 02/13/19 12:08 Last Admin: 02/12/19 17:43 Dose: 25 mls/hr Magnesium Sulfate 4 gm/ Premix 50 mls @ 12.5 mls/hr IV ONETIME ONE Stop: 02/11/19 13:18 Last Admin: 02/11/19 09:54 Dose: 12.5 mls/hr Cefepime HCl (Maxipime In D5w 2 Gm/50 Ml) Confirm Administered Dose 50 mls @ as directed .ROUTE .STK-MED ONE Stop: 02/11/19 13:04 Last Admin: 02/11/19 15:53 Dose: Not Given Influenza Virus Vaccine (Pharmacy To Dose - Influenza Vaccine) 1 each IM ONETIME ONE Stop: 02/12/19 18:33 Magnesium Hydroxide (Milk Of Magnesia) 30 ml PO ONETIME ONE Stop: 02/10/19 04:41 Last Admin: 02/10/19 04:50 Dose: 30 ml Non-Formulary Medication (Denosumab [Prolia]) 1 injection SQ ASDIRECTED [facility] Fluticasone/Salmeterol 100/50 McgOwn Med 1 puff PO BID [facility] Last Admin: 02/08/19 09:34 Dose: 1 puff Pravastatin 40 Mg (Own Med) 40 mg PO BEDTIME [facility] Last Admin: 02/07/19 22:42 Dose: 40 mg Glucosamine 1500 Mg/Chondroitin 1200 Mg* *Own Med 2 each PO BEDTIME [facility] Last Admin: 02/07/19 22:42 Dose: 2 each Ondansetron HCl (Zofran Odt) 4 mg PO ONETIME ONE Stop: 02/07/19 12:48 Last Admin: 02/07/19 12:54 Dose: 4 mg Oral Electrolytes (Thermotabs) 2 each PO TID [facility] Last Admin: 02/12/19 14:32 Dose: 2 each Vancomycin HCl (Pharmacy To Dose - Vancomycin) 1 dose .XX ASDIRECTED PRN PRN Reason: RX TO DOSE VANCO Vancomycin HCl (Vancomycin) 125 mg PO QID [facility] Last Admin: 02/12/19 08:47 Dose: 125 mg - Exam Quality Assessment: Reports: Supplemental Oxygen General: Reports: Alert, Oriented HEENT: Reports: Pupils Equal, Mucous Membr. Moist/[place] Neck: Reports: Supple Lungs: Reports: Decreased Breath Sounds, Wheezing (much improved from yesterday) Cardiovascular: Reports: Regular Rate, Regular Rhythm GI/Abdominal Exam: Normal Bowel Sounds, No Distention (Female) Exam: Normal External Exam, Normal Speculum Exam, Normal Bimanual Exam Extremities: Normal Inspection, Normal Range of Motion, Non-Tender, No Pedal Edema Psy/Mental Status: Reports: Alert, Normal Affect, Normal Mood
[2019-02-14] MEDS ORDERED: Iopamidol 755 MG/ML 50 ML Bottle IVPUSH ONE (07:59)
[2019-02-14] MEDS ORDERED: Sodium Chloride 0.9% 10 ML Syringe FLUSH SCH (08:15)
--- NOTE | 2019-02-14 08:51 | CR ---
PICC line injection: Contrast was injected through existing PICC line. Filming was obtained at 8 frames per second. Contrast is seen to exit through the PICC line without difficulty. Tip of PICC line located within the right brachiocephalic vein close to the SVC. PICC line should be advanced by about 5 cm for optimal position. Impression: 1. PICC line as noted above. This PICC line is more proximal in location than on prior chest x-ray. Diagnostic code #2
[2019-02-14] MEDS ORDERED: Hydrocortisone 1% Crm 30 GM Tube TOP SCH (09:00)
[2019-02-14] MEDS: Furosemide 40 MG Tab PO SCH (09:20)
[2019-02-14] MEDS: Calcium Carbonate/Vitamin D3 600 MG-200 Units Tab PO SCH (09:20)
[2019-02-14] MEDS: Sodium Chloride/Potassium Chloride Tab PO SCH (09:20)
[2019-02-14] MEDS: Saccharomyces Boulardii (Probiotic) 250 MG Cap PO SCH (09:21)
[2019-02-14] MEDS: guaiFENesin 600 MG Tab.ER PO SCH (09:21)
[2019-02-14] MEDS: Magnesium Oxide 400 MG Tab PO SCH (09:21)
[2019-02-14] MEDS: Ascorbic Acid 500 MG Tab PO SCH (09:24)
[2019-02-14] MEDS: SALMETEROL PO SCH (11:09)
[2019-02-14] MEDS: FLUTICASONE PO SCH (11:09)
[2019-02-14] MEDS: ALBUTEROL INH PRN (11:10)
[2019-02-14 12:16] VITALS: BP 136/75; PULSE 90
== END 2019-02-14 13:20 | disposition home or self-care (01) | DRG 603 ==
LOC: JD.ED 10:21 → JD.MS 15:44 → OBSVTOIN 02-08 11:31 → JD.MS 02-08 14:36
PROVIDERS: ADMIT Family Medicine; ATTEND Family Medicine
PROC: 02HV33Z Insertion of Infusion Device into Superior Vena Cava, Percutaneous Approach (ICD-10-PCS; principal; 2019-02-13)
PROC: 3E02340 Introduction of Influenza Vaccine into Muscle, Percutaneous Approach (ICD-10-PCS; 2019-02-14)
DX: L03.115 Cellulitis of right lower limb (principal); R05 Cough; J44.9 Chronic obstructive pulmonary disease, unspecified; I50.32 Chronic diastolic (congestive) heart failure; I50.30 Unspecified diastolic (congestive) heart failure; J44.1 Chronic obstructive pulmonary disease with (acute) exacerbation; K52.1 Toxic gastroenteritis and colitis; E78.00 Pure hypercholesterolemia, unspecified; I11.0 Hypertensive heart disease with heart failure; G25.81 Restless legs syndrome; F41.9 Anxiety disorder, unspecified; F32.9 Major depressive disorder, single episode, unspecified; L30.9 Dermatitis, unspecified; B96.5 Pseudomonas (aeruginosa) (mallei) (pseudomallei) as the cause of diseases classified elsewhere; G40.909 Epilepsy, unspecified, not intractable, without status epilepticus; E66.9 Obesity, unspecified; T47.4X5A Adverse effect of other laxatives, initial encounter; Z23 Encounter for immunization; Z90.49 Acquired absence of other specified parts of digestive tract; Z90.710 Acquired absence of both cervix and uterus; Z87.891 Personal history of nicotine dependence; Z88.5 Allergy status to narcotic agent; Z88.8 Allergy status to other drugs, medicaments and biological substances; Z88.1 Allergy status to other antibiotic agents; Z91.040 Latex allergy status; Z79.82 Long term (current) use of aspirin; Z79.899 Other long term (current) drug therapy; Z68.22 Body mass index [BMI] 22.0-22.9, adult
CPT/HCPCS: 36415 ×2; 80048; 80053; 83735; 84550; 85007; 85025; 85027; 86140 ×2; 87040 ×2; 93971; 94640 ×4; 94667; 94760; 94762; 96365; 96367; 96372; 97161; 97165; 97530; 99284; A9270 ×13; J0694 ×3; J1170; J1885; J3370; J7050; 36569; 71046; 71046-26; 77001; 77001-26; 87493; 90662; 94668; 94761; 96366; 96375; C1751; G0008; G0378; J0692; J2405; J3010; J3475; J7040; J7620-GY; Q9967

== ENCOUNTER 2019-03-20 18:33 | Inpatient (IN) | payer MEDICARE, OTHER ==
[2019-03-20] MEDS ORDERED: Sodium Chloride 0.9% 10 ML Syringe FLUSH PRN (19:08)
--- NOTE | 2019-03-20 19:09 | EDM.PDOC ---
ED HPI GENERAL MEDICAL PROBLEM - General Chief Complaint: Respiratory Problem Stated Complaint: SOB/DOESN'T FEEL WELL/RECHECK ON HER UTI Time Seen by Provider: 03/20/19 19:07 Source of Information: Reports: Patient History Limitations: Reports: No Limitations - History of Present Illness INITIAL COMMENTS - FREE TEXT/NARRATIVE: 79-year-old female presents to the ED sublingual because she's not feeling well particularly sent she started inhalational tobramycin treatments yesterday evening. Patient has been followed by computer bookkeeper in [facility] in [facility]. She underwent bronchial washings to establish that bacteria was colonizing her lungs making her lung disease worse. Was felt primarily to be Pseudomonas. She has thus been started on his outpatient of meropenem intravenously twice a day until March 23. Discharge from the hospital on the . She was prescribed inhalational tobramycin but for a variety of reasons it was not able to be obtained until yesterday. She is now taken 2 doses about 1700 hrs. last night and 0500 hrs. this morning. She states his left her with a very nasty taste in her mouth and made her feel unwell. She lost her appetite as well. Bowel function has been pretty good. She did have one day of diarrhea 4 days ago but this subsequently is now formed up on acidophilus probiotics. She had 2 problems today. She still feels like she has a urinary tract infection and had 2 accidents today with urge incontinence. No fever no chills. She is on oxygen usually at 1 L/m but today is requiring 3 L to keep her O2 sats in the upper 90s. She feels more dyspneic than normal. Appetite has been fair with no documented weight loss. Onset: Today Onset Date: 03/19/19 (Started to feel unwell after inhalational tobramycin starting last evening. Worse after taking it this morning.) Duration: Hour(s):, Getting Worse, Other (Urgency incontinence with 2 accidents today due to loss of bladder control. 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 To bring up a small quantity of greenish brown sputum this morning and perhaps a little bit after tobramycin and nausea treatment last evening as well. 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 Denies: Activity, Exercise (Activity exposure to cool night air.), Lifting, Sick Contact, Trauma Associated Symptoms: Reports: Cough, cough w sputum (Occasional production of greenish brown sputum.), Loss of Appetite, Malaise, Nausea/Vomiting, Shortness of Breath, Weakness (Nauseated from the tobramycin with no vomiting). 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 (see below) (Usually uses Xopenex 2 or 3 times daily help with sputum production and airflow in her lungs.) - Related Data Allergies Allergy/AdvReac Type Severity Reaction Status Date / Time doxycycline Allergy Severe Airway Verified 03/20/19 18:45 Tightness levofloxacin [From Levaquin] Allergy Severe Airway Verified 03/20/19 18:45 Tightness Latex, Natural Rubber Allergy Mild Rash Verified 03/20/19 18:45 bacitracin Allergy Hives Verified 03/20/19 18:45 [From Neosporin ([id number])] budesonide [From Symbicort] Allergy Airway Verified 02/07/19 11:08 Tightness formoterol [From Symbicort] Allergy Airway Verified 03/20/19 18:45 Tightness neomycin Allergy Hives Verified 03/20/19 18:45 [From Neosporin ([id number])] polymyxin B Allergy Hives Verified 03/20/19 18:45 [From Neosporin ([id number])] codeine AdvReac Mild Hallucinati Verified 03/20/19 18:45 ons Home Meds: Home Meds Albuterol [Ventolin HFA] 2 puff INH QID PRN 02/12/15 [History] Calcium Carbonate/Vitamin D3 [Calcium 600 + Vit D Tablet] 500 mg PO BID [History] Cyanocobalamin (Vitamin B12) [Vitamin B12] 500 mcg PO BEDTIME 09/30/15 [History] Fluticasone/Salmeterol [Advair Diskus 250-50] 1 puff PO BID 02/12/15 [History] Furosemide [Lasix] 40 mg PO DAILY 02/12/15 [History] Pravastatin [Pravachol] 40 mg PO BEDTIME 02/12/15 [History] Ascorbate Calcium [Vitamin C] 500 mg PO DAILY 02/18/17 [History] Denosumab [Prolia] 1 injection SQ ASDIRECTED 02/18/17 [History] Estradiol [Vagifem] 10 mcg VAG ASDIRECTED 02/18/17 [History] diphenhydrAMINE [Benadryl] 25 mg PO BEDTIME PRN 02/18/17 [History] Aspirin 81 mg PO BEDTIME 02/07/19 [History] Glucosamine/Chondro Gonzales A [Cosamin DS] 2 each PO BEDTIME 02/07/19 [History] Hydrocortisone [Hydrocortisone 1% Crm] 30 gm TOP TID PRN 03/20/19 [History] Meropenem [Merrem] 1,000 ml IV Q12H 03/20/19 [History] Tobramycin/Nebulizer [Tobramycin Glenn 300 mg/5 ml] 300 mg INH Q12H 03/20/19 [ History] Past Medical History HEENT History: Reports: Sinusitis, Other (See Below) Other HEENT History: dentures, glasses Cardiovascular History: Reports: Heart Failure, Heart Murmur, High Cholesterol, Hypertension, Other (See Below) Other Cardiovascular History: aortic valve disease, diastolic heart failure, vein leg stripping Respiratory History: Reports: Asthma, COPD (Requiring oxygen supplementation and usually 1 L/m at all times by nasal cannula.), Pneumonia, Recurrent Gastrointestinal History: Reports: GI Bleed, Other (See Below) Other Gastrointestinal History: GI bleed Genitourinary History: Reports: Urinary Incontinence, UTI, Recurrent 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 Allergy to latex - Infectious Disease History Infectious Disease History: Reports: Chicken Pox, Measles, Mumps, Shingles - Past Surgical History HEENT Surgical History: Reports: Naso-Sinus Surgery, Tonsillectomy Cardiovascular Surgical History: Reports: None GI Surgical History: Reports: Appendectomy, Colonoscopy Female Surgical History: Reports: Hysterectomy Other Female Surgeries/Procedures: Prior to hysterectomy patient has a mesh to hold uterus in place. 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 Oncologic Surgical History: Reports: None Dermatological Surgical History: Reports: None Social & Family History - Family History Family Medical History: Noncontributory - Tobacco Use Smoking Status *Q: Former Smoker Tobacco Use Within Last Twelve Months: Cigarettes (Quit 2 months ago.) Years of Tobacco use: 60 Packs/Tins Daily: 1 Used Tobacco, but Quit: Yes Month/Year Tobacco Last Used: Jan 2019 - Caffeine Use Caffeine Use: Reports: Coffee - Recreational Drug Use Recreational Drug Use: No - Living Situation & Occupation Living situation: Reports: Occupation: Retired ED ROS GENERAL - Review of Systems Review Of Systems: See Below Constitutional: Reports: Malaise, Weakness, Fatigue, Decreased Appetite. Denies : Fever, Chills, Diaphoresis, Weight Loss (Today) HEENT: Reports: Glasses Respiratory: Reports: Shortness of Breath, Wheezing, Cough, Sputum (Occasional production of greenish brown sputum.). Denies: Pleuritic Chest Pain, Hemoptysis Cardiovascular: Reports: Blood Pressure Problem, Dyspnea on Exertion ( Chronically), Orthopnea (Chronic hypertension). Denies: Chest Pain, Claudication, Edema, Lightheadedness Endocrine: Reports: Fatigue GI/Abdominal: Reports: Decreased Appetite, Nausea (Since starting the tobramycin inhalational treatments). Denies: Constipation, Diarrhea, Distension (Today), Flatus, Hematemesis, Hematochezia, Melena, Vomiting, Other : Reports: Dysuria, Frequency, Incontinence ( urgency incontinence 2 today.) , Urgency Musculoskeletal: Reports: Joint Pain (Knees hips and low back at times.) Skin: Reports: No Symptoms Neurological: Reports: No Symptoms Psychiatric: Reports: No Symptoms Hematologic/Lymphatic: Reports: No Symptoms Immunologic: Reports: No Symptoms ED EXAM, GENERAL - Physical Exam Exam: See Below Exam Limited By: Respiratory Distress (Mild respiratory distress.) General Appearance: Alert, Moderate Distress, Other (Respiratory distress. Temperature is 37.4 with a pulse of 109. Respiratory rate is 20 with O2 sats of 88% on 1 L. BP elevated 179 100.) Eye Exam: Bilateral Eye: Normal Inspection Throat/Mouth: Normal Inspection, Normal Lips, Normal Teeth, Normal Oropharynx Head: Atraumatic, Normocephalic Neck: Normal Inspection, Supple, Non-Tender, Full Range of Motion, Carotid Bruit (Referred into the right carotid artery from aortic stenosis.). No: Lymphadenopathy (L), Lymphadenopathy (R) Respiratory/Chest: No Accessory Muscle Use, Chest Non-Tender, Respiratory Distress (Moderate respiratory distress tachypnea 20/m with O2 sats of 80% on 1 L.), Decreased Breath Sounds (Decreased air into the lower 50% of lung schwartz bilaterally. No dullness to percussion on exam.). No: Lungs Clear, Normal Breath Sounds Cardiovascular: No Gallop, Systolic Murmur (Grade 2-3 pansystolic ejection murmur best heard at the left lower sternal border. It does radiate towards the left exit left as well as into the right carotid artery. Appears to be aortic stenosis. Question whether she has a component of mitral insufficiency as well.) Peripheral Pulses: 1+: Posterior Tibial (L), Posterior Tibial (R), Dorsalis Pedis (L), Dorsalis Pedis (R) GI/Abdominal: Normal Bowel Sounds, Soft, Non-Tender, No Organomegaly, No Abnormal Bruit, No Mass, Pelvis Stable, Distended (Diffusely tympanitic to percussion upper abdomen compound some degree of aerophagia.) Back Exam: Normal Inspection, Full Range of Motion. No: CVA Tenderness (L), CVA Tenderness (R) Extremities: Pedal Edema (1+ pitting edema both lower extremities status post at the feet and ankles.) Neurological: Alert, Oriented, CN II-XII Intact, Normal Cognition, No Motor/ Sensory Deficits Psychiatric: Normal Affect, Normal Mood Skin Exam: Warm, Dry, Intact, Normal Color, No Rash EKG INTERPRETATION EKG Date: 03/20/19 Time: 19:18 Rhythm: NSR Rate (Beats/Min): 96 [place]: Normal P-Wave: Enlarged (Marked left atrial hypertrophy likely right atrial hypertrophy as well.) QRS: Other (Q waves appreciated V1 and V2 and near Q-wave in V3 suggestive of an old anterior septal myocardial infarction.) ST-T: Other (Slightly symmetrically peaked T waves V3 V4 V5. Consider hyperkalemia) QT: Normal EKG Interpretation Comments: Abnormal ECG Course - Vital Signs Last Recorded V/S: Last Vital Signs Temp 36.9 C 03/21/19 04:55 Pulse 107 H 03/21/19 04:55 Resp 24 H 03/21/19 04:55 BP 141/80 H 03/21/19 04:55 Pulse Ox 92 L 03/21/19 05:50 - Orders/Labs/Meds Orders: Active Orders 24 hr Category Date Time Status RT Aerosol Therapy [RC] ASDIRECTED Care 03/20/19 19:46 Active CULTURE URINE [RM] Stat Lab 03/20/19 20:20 Results Sodium Chloride 0.9% [Saline Flush] Med 03/20/19 19:08 Active 10 ml FLUSH ASDIRECTED PRN Peripheral IV Insertion Adult [OM.PC] Stat Oth 03/20/19 19:08 Ordered Medication Orders Acetylcysteine (Mucomyst 20%) 800 mg NEB BIDRT [facility] Last Admin: 03/21/19 05:44 Dose: 800 mg Albuterol/Ipratropium (Duoneb 3.0-0.5 Mg/3 Ml) 3 ml NEB Q4HRRT [facility] Last Admin: 03/21/19 05:44 Dose: 3 ml Admin: 03/21/19 02:32 Dose: 3 ml Benzonatate (Tessalon Perles) 100 mg PO TID [facility] Budesonide (Pulmicort) 0.5 mg NEB BIDRT [facility] Last Admin: 03/21/19 05:44 Dose: 0.5 mg Enoxaparin Sodium (Lovenox) 40 mg SUBCUT DAILY [facility] Guaifenesin (Robitussin) 200 mg PO Q8H [facility] Last Admin: 03/21/19 02:24 Dose: 200 mg Meropenem 1 gm/ Sodium (Chloride) 50 mls @ 16.667 mls/hr IV Q12H [facility] Tobramycin/Nebulizer 300 Mg/5 Ml Pack Ptom 0 each INH Q12H [facility] Sodium Chloride (Saline Flush) 10 ml FLUSH ASDIRECTED PRN PRN Reason: Keep Vein Open Last Admin: 03/20/19 19:44 Dose: 10 ml Labs: Laboratory Tests 03/20/19 03/20/19 03/20/19 Range/Units 19:26 19:26 19:26 WBC 13.36 H (3.98-10.04) K/mm3 RBC 3.57 L (3.98-5.22) M/mm3 Hgb 10.5 L (11.2-15.7) gm/dl Hct 32.4 L (34.1-44.9) % MCV 90.8 (79.4-94.8) fl MCH 29.4 (25.6-32.2) pg MCHC 32.4 (32.2-35.5) g/dl RDW Std Deviation 45.8 (36.4-46.3) fL Plt Count 455 H D (182-369) K/mm3 MPV 9.2 L (9.4-12.3) fl Neut % (Auto) 70.1 (34.0-71.1) % Lymph % (Auto) 12.5 L (19.3-51.7) % [place] % (Auto) 11.5 (4.7-12.5) % Eos % (Auto) 5.3 (0.7-5.8) Baso % (Auto) 0.3 (0.1-1.2) % Neut # (Auto) 9.37 H (1.56-6.13) K/mm3 Lymph # (Auto) 1.67 (1.18-3.74) K/mm3 [place] # (Auto) 1.53 H (0.24-0.36) K/mm3 Eos # (Auto) 0.71 H (0.04-0.36) K/mm3 Baso # (Auto) 0.04 (0.01-0.08) K/mm3 Manual Slide Review Abnormal smear Sodium 130 L (136-145) mEq/L Potassium 5.1 (3.5-5.1) mEq/L Chloride 94 L (98-107) mEq/L Carbon Dioxide 30 (21-32) mEq/L Anion Gap 11.1 (5-15) BUN 23 H (7-18) mg/dL Creatinine 1.1 H (0.55-1.02) mg/dL Est Cr Clr Drug Dosing 38.82 mL/min Estimated GFR (MDRD) 48 (>60) mL/min BUN/Creatinine Ratio 20.9 H (14-18) Glucose 109 (83-115) mg/dL Serum Osmolality (280-300) mosm/kg Lactic Acid (0.4-2.0) mmol/L Calcium 9.8 (8.5-10.1) mg/dL Magnesium 1.6 L (1.8-2.4) mg/dl Total Bilirubin 0.3 (0.2-1.0) mg/dL AST 17 (15-37) U/L ALT 41 (14-59) U/L Alkaline Phosphatase 60 (46-116) U/L Troponin I < 0.017 (0.00-0.056) ng/mL C-Reactive Protein 1.0 (<1.0) mg/dL NT-Pro-B Natriuret Pep 1185 H (0-450) pg/mL Total Protein 7.6 (6.4-8.2) g/dl Albumin 3.2 L (3.4-5.0) g/dl Globulin 4.4 gm/dL Albumin/Globulin Ratio 0.7 L (1-2) Urine Color (Yellow) Urine Appearance (Clear) Urine pH (5.0-8.0) Ur Specific [place] (1.005-1.030) Urine Protein (Negative) Urine Glucose (UA) (Negative) Urine Ketones (Negative) Urine Occult Blood (Negative) Urine Nitrite (Negative) Urine Bilirubin (Negative) Urine Urobilinogen (0.2-1.0) Ur Leukocyte Esterase (Negative) Urine RBC (0-5) /hpf Urine WBC (0-5) /hpf Ur Squamous Epith Cells (0-5) /hpf Urine Bacteria (FEW) /hpf Urine Mucus (FEW) /hpf Urine Osmolality (400-1100) mosm/kg Ur Random Sodium (40-220) mEq/L 03/20/19 03/20/19 03/20/19 Range/Units 19:26 19:26 20:10 WBC (3.98-10.04) K/mm3 RBC (3.98-5.22) M/mm3 Hgb (11.2-15.7) gm/dl Hct (34.1-44.9) % MCV (79.4-94.8) fl MCH (25.6-32.2) pg MCHC (32.2-35.5) g/dl RDW Std Deviation (36.4-46.3) fL Plt Count (182-369) K/mm3 MPV (9.4-12.3) fl Neut % (Auto) (34.0-71.1) % Lymph % (Auto) (19.3-51.7) % [place] % (Auto) (4.7-12.5) % Eos % (Auto) (0.7-5.8) Baso % (Auto) (0.1-1.2) % Neut # (Auto) (1.56-6.13) K/mm3 Lymph # (Auto) (1.18-3.74) K/mm3 [place] # (Auto) (0.24-0.36) K/mm3 Eos # (Auto) (0.04-0.36) K/mm3 Baso # (Auto) (0.01-0.08) K/mm3 Manual Slide Review Sodium (136-145) mEq/L Potassium (3.5-5.1) mEq/L Chloride (98-107) mEq/L Carbon Dioxide (21-32) mEq/L Anion Gap (5-15) BUN (7-18) mg/dL Creatinine (0.55-1.02) mg/dL Est Cr Clr Drug Dosing mL/min Estimated GFR (MDRD) (>60) mL/min BUN/Creatinine Ratio (14-18) Glucose (83-115) mg/dL Serum Osmolality 279 L (280-300) mosm/kg Lactic Acid 0.7 (0.4-2.0) mmol/L Calcium (8.5-10.1) mg/dL Magnesium (1.8-2.4) mg/dl Total Bilirubin (0.2-1.0) mg/dL AST (15-37) U/L ALT (14-59) U/L Alkaline Phosphatase (46-116) U/L Troponin I (0.00-0.056) ng/mL C-Reactive Protein (<1.0) mg/dL NT-Pro-B Natriuret Pep (0-450) pg/mL Total Protein (6.4-8.2) g/dl Albumin (3.4-5.0) g/dl Globulin gm/dL Albumin/Globulin Ratio (1-2) Urine Color Light yellow (Yellow) Urine Appearance Clear (Clear) Urine pH 7.0 (5.0-8.0) Ur Specific [place] 1.020 (1.005-1.030) Urine Protein Trace H (Negative) Urine Glucose (UA) Negative (Negative) Urine Ketones Negative (Negative) Urine Occult Blood Negative (Negative) Urine Nitrite Negative (Negative) Urine Bilirubin Negative (Negative) Urine Urobilinogen 0.2 (0.2-1.0) Ur Leukocyte Esterase 1+ H (Negative) Urine RBC 0-5 (0-5) /hpf Urine WBC 5-10 H (0-5) /hpf Ur Squamous Epith Cells 5-10 H (0-5) /hpf Urine Bacteria Few (FEW) /hpf Urine Mucus Not seen (FEW) /hpf Urine Osmolality (400-1100) mosm/kg Ur Random Sodium (40-220) mEq/L 03/20/19 03/20/19 Range/Units 20:10 20:20 WBC (3.98-10.04) K/mm3 RBC (3.98-5.22) M/mm3 Hgb (11.2-15.7) gm/dl Hct (34.1-44.9) % MCV (79.4-94.8) fl MCH (25.6-32.2) pg MCHC (32.2-35.5) g/dl RDW Std Deviation (36.4-46.3) fL Plt Count (182-369) K/mm3 MPV (9.4-12.3) fl Neut % (Auto) (34.0-71.1) % Lymph % (Auto) (19.3-51.7) % [place] % (Auto) (4.7-12.5) % Eos % (Auto) (0.7-5.8) Baso % (Auto) (0.1-1.2) % Neut # (Auto) (1.56-6.13) K/mm3 Lymph # (Auto) (1.18-3.74) K/mm3 [place] # (Auto) (0.24-0.36) K/mm3 Eos # (Auto) (0.04-0.36) K/mm3 Baso # (Auto) (0.01-0.08) K/mm3 Manual Slide Review Sodium (136-145) mEq/L Potassium (3.5-5.1) mEq/L Chloride (98-107) mEq/L Carbon Dioxide (21-32) mEq/L Anion Gap (5-15) BUN (7-18) mg/dL Creatinine (0.55-1.02) mg/dL Est Cr Clr Drug Dosing mL/min Estimated GFR (MDRD) (>60) mL/min BUN/Creatinine Ratio (14-18) Glucose (83-115) mg/dL Serum Osmolality (280-300) mosm/kg Lactic Acid (0.4-2.0) mmol/L Calcium (8.5-10.1) mg/dL Magnesium (1.8-2.4) mg/dl Total Bilirubin (0.2-1.0) mg/dL AST (15-37) U/L ALT (14-59) U/L Alkaline Phosphatase (46-116) U/L Troponin I (0.00-0.056) ng/mL C-Reactive Protein (<1.0) mg/dL NT-Pro-B Natriuret Pep (0-450) pg/mL Total Protein (6.4-8.2) g/dl Albumin (3.4-5.0) g/dl Globulin gm/dL Albumin/Globulin Ratio (1-2) Urine Color (Yellow) Urine Appearance (Clear) Urine pH (5.0-8.0) Ur Specific [place] (1.005-1.030) Urine Protein (Negative) Urine Glucose (UA) (Negative) Urine Ketones (Negative) Urine Occult Blood (Negative) Urine Nitrite (Negative) Urine Bilirubin (Negative) Urine Urobilinogen (0.2-1.0) Ur Leukocyte Esterase (Negative) Urine RBC (0-5) /hpf Urine WBC (0-5) /hpf Ur Squamous Epith Cells (0-5) /hpf Urine Bacteria (FEW) /hpf Urine Mucus (FEW) /hpf Urine Osmolality 333 L (400-1100) mosm/kg Ur Random Sodium 76 (40-220) mEq/L Meds: Medications Generic Name Dose Route Start Last Admin Trade Name Freq PRN Reason Stop Dose Admin Acetylcysteine 800 mg 03/21/19 06:00 03/21/19 05:44 Mucomyst 20% NEB 800 mg BIDRT [facility] Administration Albuterol/Ipratropium 3 ml 03/21/19 02:00 03/21/19 05:44 Duoneb 3.0-0.5 Mg/3 Ml NEB 3 ml Q4HRRT [facility] Administration Benzonatate 100 mg 03/21/19 09:00 Tessalon Perles PO TID MICHELA Budesonide 0.5 mg 03/21/19 06:00 03/21/19 05:44 Pulmicort NEB 0.5 mg BIDRT MICHELA Administration Enoxaparin Sodium 40 mg 03/21/19 09:00 Lovenox SUBCUT DAILY [facility] Guaifenesin 200 mg 03/21/19 01:00 03/21/19 02:24 Robitussin PO 200 mg Q8H MICHELA Administration Meropenem 1 gm/ Sodium 50 mls @ 16.667 mls/hr 03/21/19 07:30 Chloride IV Q12H [facility] Tobramycin/Nebulizer 0 each 03/21/19 08:00 300 Mg/5 Ml Pack INH Ptom Q12H [facility] Sodium Chloride 10 ml 03/20/19 19:08 03/20/19 19:44 Saline Flush FLUSH 10 ml ASDIRECTED PRN Administration Keep Vein Open Discontinued Medications Generic Name Dose Route Start Last Admin Trade Name Freq PRN Reason Stop Dose Admin Furosemide 40 mg 03/20/19 21:23 03/20/19 22:57 Lasix IVPUSH 03/20/19 21:24 40 mg NOW ONE Administration Levalbuterol HCl 1.25 mg 03/20/19 19:45 03/20/19 20:24 Xopenex NEB 03/20/19 19:46 1.25 mg ONETIME ONE Administration Lorazepam 0.25 mg 03/21/19 07:16 Ativan IVPUSH 03/21/19 07:17 ONETIME ONE Meropenem gm 03/21/19 07:15 Merrem IV Q12H [facility]HE[facility] - Radiology Interpretation Free Text/Narrative:: 79-year-old female presents to the ED for evaluation of generally not feeling well. This seems to be apparent precipitated by starting tobramycin inhalational therapy last evening. 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 Early on meropenem intravenously twice a day and has been since 12 March. She is to take this until 20 February. There is a delay in getting the tobramycin inhalational medication for her and she was just started yesterday although was planned to be started on the . She states is living very nasty taste in her mouth and upsetting her stomach. Her short of breath today. She also has had to urgency incontinence accidents today and feels like she still has a bladder infection. In place she has severe aortic stenosis with suspect mitral insufficiency murmur as well. She has a component of congestive heart failure. She has decreased air into the lower 50% of lung schwartz. By history she quit smoking 2 months ago. She is requiring increased oxygen therapy up to 3 L/m to maintain sats of 96-97% on room air. Plan we'll give her a Xopenex treatment while here. Chest x-ray to be done. Routine labs to rule out exacerbation of heart failure. Evacuation mouth is likely secondary to tobramycin which has an awful taste on inhalational treatments. Urinalysis to be obtained see if she still has a significant urinary tract infection. She is afebrile at present. - Re-Assessments/Exams Free Text/Narrative Re-Assessment/Exam: 03/20/19 20:47 White blood cell count is elevated at 13.36. The automated neutrophil count is 70%. Hemoglobin is slightly low at 10.5 with hematocrit of 32.4. MCV is 90.8. Platelet count is elevated at 455,000. The slides reviewed and reveals a few toxic granulated neutrophils but no bandemia. Sodium is low 1: 30 with potassium of 5.1. Chloride is 94 with a bicarbonate of 30. Anion gap is 11.1 with a BUN of 23 and a creatinine of 1.1. GFR is 48. BUN/creatinine ratio is 20.9. Glucose 109. Lactic acid 0.7. Calcium is 9.8. Magnesium slightly low at 1.6. Total bilirubin 0.3. AST is 17 with a nail T of 41. Troponin I is less than 0.017. C-reactive protein 1.0. BNP 1185. Total protein 7.6 albumin fraction 3.2. Urinalysis shows a trace of protein 1+ leukocyte esterase positivity. 0-5 RBCs per high-power field 5-10 WBCs per high-power field and 5- 10 episodes epithelial cells per high power field with a few bacteria appreciated. 03/20/19 21:24 Discussed the options with the patient and she wouldn't mind staying in the hospital as she feels pretty dyspneic. Will give her Lasix 40 mg IV now. Claims that she is not drinking a lot of water. Perhaps she is getting D5W with her meropenem inset of normal saline. I've sent a daughter home to get her tobramycin inhalational treatment for tonight. She is feeling hot prickly when she takes it suggesting she is possibly developing allergy symptoms. The taste is very awful. 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 03/20/19 21:52 case discussed with on-call hospitalist Dr. Geronimo and she will see the patient in the ED. She requests a serum osmolality and a urine osmolality as well as a urine random sodium level to see why she is hyponatremic. 03/21/19 00:54 Serum osmolality did return at 279 which is mildly low. Urine osmolality returned at 333 again mildly low. Random urine sodium was 76 this proves the patient has dilutional hyponatremia. Departure - Departure Time of Disposition: 00:35 Disposition: Refer to Observation Condition: Fair Clinical Impression: End stage chronic obstructive pulmonary disease, Urge incontinence of urine, Hyponatremia, Pseudomonas aeruginosa colonization, COPD exacerbation Acute exacerbation of congestive heart failure Qualifiers: Heart failure type: unspecified Qualified Code(s): I50.9 - Heart failure, unspecified - Discharge Information *PRESCRIPTION DRUG MONITORING PROGRAM REVIEWED*: Not Applicable *COPY OF PRESCRIPTION DRUG MONITORING REPORT IN PATIENT TETO: Not Applicable - My Orders Last 24 Hours: My Active Orders 03/20/19 19:08 Sodium Chloride 0.9% [Saline Flush] 10 ml FLUSH ASDIRECTED PRN Peripheral IV Insertion Adult [OM.PC] Stat 03/20/19 19:46 RT Aerosol Therapy [RC] ASDIRECTED 03/20/19 20:20 CULTURE URINE [RM] Stat - Assessment/Plan Last 24 Hours: My Active Orders 03/20/19 19:08 Sodium Chloride 0.9% [Saline Flush] 10 ml FLUSH ASDIRECTED PRN Peripheral IV Insertion Adult [OM.PC] Stat 03/20/19 19:46 RT Aerosol Therapy [RC] ASDIRECTED 03/20/19 20:20 CULTURE URINE [RM] Stat
[2019-03-20] MEDS ORDERED: Levalbuterol HCl 1.25 MG/0.5 ML Neb NEB ONE (19:45)
[2019-03-20] MEDS ORDERED: Furosemide 40 MG/4 ML VIAL IVPUSH ONE (21:23)
--- NOTE | 2019-03-20 22:19 | PCM.HP.2 ---
H&P History of Present Illness - General Date of Service: 03/20/19 Admit Problem/Dx: Admission Diagnosis/Problem Admission Diagnosis/Problem Chronic obstructive pulmonary disease - History of Present Illness Initial Comments - Free Text/Narative: This is a 79-year-old female with past medical history of advanced COPD who comes to the emergency department for severe shortness of breath. As per patient she was admitted and a [facility] on March 08 by lens inserter for pulmonary toileting. She stayed there for 4 days. Discharged on March 13 to complete meropenem course via PICC line this Tuesday. At the same time she was discharged on inhaled tobramycin however there was a delay in getting the treatment and she did not receive until yesterday, she has used a total of 2 doses. Today patient came in for the infusion of her antibiotics and suddenly couldn't catch her breath. This was present since the morning but got worse at that time. She also states that she's been feeling a lot of nasal congestion and flulike symptoms. She denies any fevers, chills, sweating, loss of consciousness, dizziness. - Related Data Allergies/Adverse Reactions: Allergies Allergy/AdvReac Type Severity Reaction Status Date / Time doxycycline Allergy Severe Airway Verified 03/20/19 18:45 Tightness levofloxacin [From Levaquin] Allergy Severe Airway Verified 03/20/19 18:45 Tightness Latex, Natural Rubber Allergy Mild Rash Verified 03/20/19 18:45 bacitracin Allergy Hives Verified 03/20/19 18:45 [From Neosporin ([id number])] budesonide [From Symbicort] Allergy Airway Verified 02/07/19 11:08 Tightness formoterol [From Symbicort] Allergy Airway Verified 03/20/19 18:45 Tightness neomycin Allergy Hives Verified 03/20/19 18:45 [From Neosporin ([id number])] polymyxin B Allergy Hives Verified 03/20/19 18:45 [From Neosporin ([id number])] codeine AdvReac Mild Hallucinati Verified 03/20/19 18:45 ons Home Medications: Home Meds Albuterol [Ventolin HFA] 2 puff INH QID PRN 02/12/15 [History] Calcium Carbonate/Vitamin D3 [Calcium 600 + Vit D Tablet] 500 mg PO BID [History] Cyanocobalamin (Vitamin B12) [Vitamin B12] 500 mcg PO BEDTIME 02/12/15 [History] Fluticasone/Salmeterol [Advair Diskus 250-50] 1 puff PO BID 02/12/15 [History] Furosemide [Lasix] 40 mg PO DAILY 02/12/15 [History] Pravastatin [Pravachol] 40 mg PO BEDTIME 02/12/15 [History] Ascorbate Calcium [Vitamin C] 500 mg PO DAILY 02/18/17 [History] Denosumab [Prolia] 1 injection SQ ASDIRECTED 02/18/17 [History] Estradiol [Vagifem] 10 mcg VAG ASDIRECTED 02/18/17 [History] diphenhydrAMINE [Benadryl] 25 mg PO BEDTIME PRN 02/18/17 [History] Aspirin 81 mg PO BEDTIME 02/07/19 [History] Glucosamine/Chondro Gonzales A [Cosamin DS] 2 each PO BEDTIME 02/07/19 [History] Hydrocortisone [Hydrocortisone 1% Crm] 30 gm TOP TID PRN 03/20/19 [History] Meropenem [Merrem] 1,000 ml IV Q12H 03/20/19 [History] Tobramycin/Nebulizer [Tobramycin Glenn 300 mg/5 ml] 300 mg INH Q12H 03/20/19 [ History] Past Medical History HEENT History: Reports: Sinusitis, Other (See Below) Other HEENT History: dentures, glasses Cardiovascular History: Reports: Heart Failure, Heart Murmur, High Cholesterol, Hypertension, Other (See Below) Other Cardiovascular History: aortic valve disease, diastolic heart failure, vein leg stripping Respiratory History: Reports: Asthma, COPD (Requiring oxygen supplementation and usually 1 L/m at all times by nasal cannula.), Pneumonia, Recurrent Gastrointestinal History: Reports: GI Bleed, Other (See Below) Other Gastrointestinal History: GI bleed Genitourinary History: Reports: Urinary Incontinence, UTI, Recurrent [employer] History: Reports: Musculoskeletal History: Reports: Other (See Below) Other Musculoskeletal History: osteopenia, restless leg syndrome Neurological History: Reports: None Psychiatric History: Reports: None Endocrine/Metabolic History: Reports: None Hematologic History: Reports: Blood Transfusion(s) Immunologic History: Reports: None Oncologic (Cancer) History: Reports: None Other Dermatologic History: Rash/cellulitis in BLE. Allergy to latex - Infectious Disease History Infectious Disease History: Reports: Chicken Pox, Measles, Mumps, Shingles - Past Surgical History HEENT Surgical History: Reports: Naso-Sinus Surgery, Tonsillectomy Cardiovascular Surgical History: Reports: None GI Surgical History: Reports: Appendectomy, Colonoscopy Female Surgical History: Reports: Hysterectomy Other Female Surgeries/Procedures: Prior to hysterectomy patient has a mesh to hold uterus in place. 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 Oncologic Surgical History: Reports: None Dermatological Surgical History: Reports: None Social & Family History - Family History Family Medical History: Noncontributory - Tobacco Use Smoking Status *Q: Former Smoker Years of Tobacco use: 60 Packs/Tins Daily: 1 Used Tobacco, but Quit: Yes Month/Year Tobacco Last Used: Jan 2019 - Caffeine Use Caffeine Use: Reports: Coffee - Recreational Drug Use Recreational Drug Use: No - Living Situation & Occupation Living situation: Reports: Occupation: Retired H&P Review of Systems - Review of Systems: Review Of Systems: See Below General: Reports: Fever, Malaise, Weakness, Fatigue. Denies: Chills, Night Sweats, Diaphoresis, Decreased Appetite, Weight Loss, Weight Gain HEENT: Reports: Post Nasal Drip, Sinus Congestion. Denies: Headaches, Hearing Changes, Rhinitis, Sore Throat, Vertigo, Visual Changes Pulmonary: Reports: Shortness of Breath, Wheezing, Cough, Sputum. Denies: Hemoptysis Cardiovascular: Reports: Dyspnea on Exertion. Denies: Chest Pain, Palpitations , Orthopnea, PND, Edema, Lightheadedness, Syncope Gastrointestinal: Denies: Abdominal Pain, Anorexia, Constipation, Diarrhea, Nausea, Vomiting Genitourinary: Reports: Frequency, Urgency, Incontinence. Denies: Dysuria, Burning, Pain Musculoskeletal: Denies: Joint Pain, Joint Swelling, Muscle Pain, Muscle Stiffness Skin: Denies: Cyanosis, Jaundice, Pallor Psychiatric: Denies: Confusion, Depression, Anxiety Exam - Exam Exam: See Below - Vital Signs Vital Signs: Last Vital Signs Temp 37.4 C 03/20/19 18:40 Pulse 109 H 03/20/19 18:40 Resp 20 03/20/19 18:40 BP 179/100 H 03/20/19 18:40 Pulse Ox 97 03/20/19 20:25 Weight: 63.503 kg - Exam Quality Assessment: Supplemental Oxygen General: Alert, Oriented, Moderate Distress HEENT: Conjunctiva Clear, EACs Clear, Posterior Pharynx Clear, Pupils Equal, Pupils Reactive Neck: Supple, Trachea Midline. No: Lymphadenopathy Lungs: Decreased Breath Sounds, Wheezing Cardiovascular: Regular Rate, Regular Rhythm GI/Abdominal Exam: Normal Bowel Sounds, Soft, Non-Tender. No: Guarding, Rebound Back Exam: Normal Inspection. No: CVA Tenderness (L), CVA Tenderness (R) Extremities: Normal Inspection, No Pedal Edema, Slow Capillary Refill Psychiatric: Alert - Patient Data Result Diagrams: 03/21/19 04:33 03/21/19 04:33 EKG INTERPRETATION EKG Date: 03/21/19 Rhythm: NSR Rate (Beats/Min): 95 [place]: Normal P-Wave: Present (bimodal) QRS: Normal QT: Normal MS/PQ Interval: prolonged. 1st degree av block - Problem List (1) Chronic kidney disease (CKD), stage III (moderate) SNOMED Code(s): 068547301 ICD Code: N18.3 - CHRONIC KIDNEY DISEASE, STAGE 3 (MODERATE) Status: Acute Current Visit: Yes (2) Hypercapnia SNOMED Code(s): 50639374 ICD Code: R06.89 - OTHER ABNORMALITIES OF BREATHING Status: Acute Current Visit: Yes (3) COPD exacerbation SNOMED Code(s): 354207314, 182290270 ICD Code: J44.1 - CHRONIC OBSTRUCTIVE PULMONARY DISEASE W (ACUTE) EXACERBATION Status: Acute Current Visit: Yes (4) End stage chronic obstructive pulmonary disease SNOMED Code(s): 087321187 ICD Code: J44.9 - CHRONIC OBSTRUCTIVE PULMONARY DISEASE, UNSPECIFIED Status : Acute Current Visit: Yes (5) Hyponatremia SNOMED Code(s): 61980093 ICD Code: E87.1 - HYPO-OSMOLALITY AND HYPONATREMIA Status: Acute Current Visit: Yes (6) Pseudomonas aeruginosa colonization SNOMED Code(s): 05914033 ICD Code: Z22.39 - CARRIER OF OTHER SPECIFIED BACTERIAL DISEASES Status: Acute Current Visit: Yes Problem List Initiated/Reviewed/Updated: Yes Assessment/Plan Comment:: End stage chronic obstructive pulmonary disease COPD exacerbation Acute on chronic hypercapnic respiratory failure Recurrent admits for exacerbations, 3 in the past 2 months On Inhaled tobramycin Pending to complete meropenem treatment for pneumonia 2/2 pseudomonas PLAN - Influenza screen - Mucomyst 800 mg twice a day - Tessalon Perles 100 mg 3 times a day - Budesonide nebulizations twice a day - Guaifenesin 200 mg every 8 hours - Duo nebs every 4h - Solumedrol today and taper tomorrow Chronic kidney disease (CKD), stage III (moderate) PLAN - Monitor urine output - Renally dosed medications - Avoid nephrotoxic agents as much as possible - Maintain balance close to neutral - Repeat chemistries with adjustments as required Euvolemic hyponatremia Urine sodium above 40 and urine osmolality above 100 Options for etiology are Thyroid disease or adrenal insufficiency Potassium is borderline PLAN - Orthostatic VS in AM for volume status assessment - AM cortisol ordered - TSH ordered Pseudomonas aeruginosa colonization On Inhaled tobramycin PROPHYLAXIS DVT- Lovenox GI- Not indicated CODE STATUS: FULL CODE DISPOSITION: Patient will be admitted for respiratory therapy with CPT and stabilization of respiratory status. PT/OT evaluation prior to dc. - Mortality Measure Prognosis:: Poor
[2019-03-21] MEDS: guaiFENesin 100 MG/5 ML Soln 10 ML UD Cup PO SCH ×2 (02:24→08:21)
[2019-03-21] MEDS: Albuterol/Ipratropium 3.0-0.5 MG/3 ML Neb Soln NEB SCH ×6 (02:32→21:16)
[2019-03-21] MEDS: Budesonide 0.5 MG/2 ML Neb Susp NEB SCH ×2 (05:44→21:16)
[2019-03-21] MEDS ORDERED: Acetylcysteine 20% 200 MG/ML 4 ML Nebulizer Soln SDV NEB SCH (06:00)
--- NOTE | 2019-03-21 06:51 | CR ---
Chest: Portable view of the chest was obtained. Comparison: Prior chest x-ray of 02/13/19. Heart size and mediastinum are within normal limits for portable technique. Lungs are hyperinflated compatible with emphysematous change. No acute parenchymal change is suspected. Bony structures are grossly intact. Impression: 1. Emphysematous change. 2. Nothing acute is definitely seen on portable chest x-ray. Diagnostic code #2
[2019-03-21] MEDS ORDERED: Meropenem 1 GM SDV IV SCH (07:15)
[2019-03-21] MEDS ORDERED: LORazepam 2 MG/ML SDV IVPUSH ONE (07:16)
[2019-03-21] MEDS: Benzonatate 100 MG Cap PO SCH ×3 (08:21→21:23)
[2019-03-21] MEDS: Enoxaparin 40 MG/0.4 ML Syringe SUBCUT SCH (08:21)
[2019-03-21] MEDS: TOBRAMYCIN 300 MG/5 ML INH SCH ×2 (09:00→19:26)
[2019-03-21] MEDS ORDERED: diphenhydrAMINE 25 MG Cap PO PRN (09:27)
[2019-03-21] MEDS ORDERED: Magnesium Sulfate/Water 4 GM in Premix Bag 1 BAG IV ONE (10:00)
--- NOTE | 2019-03-21 15:35 | PCM.PN ---
- General Info Date of Service: 03/21/19 Admission Dx/Problem (Free Text): Admission Diagnosis/Problem Admission Diagnosis/Problem Chronic obstructive pulmonary disease Subjective Update: Soraida is doing much better in regards to her respiratory status. She is experiencing anxiety which is making treatment more difficult. I spoke with Dr. Richmond, her infectious disease specialist, who recommends continued treatment with meropenem and tobramycin and re-evaluate tomorrow. - Review of Systems General: Reports: Weakness HEENT: Reports: No Symptoms Pulmonary: Reports: Shortness of Breath, Cough Cardiovascular: Reports: No Symptoms Gastrointestinal: Reports: No Symptoms Musculoskeletal: Reports: No Symptoms Skin: Reports: No Symptoms - Patient Data Vitals - Most Recent: Last Vital Signs Temp 98.8 F 03/21/19 11:19 Pulse 107 H 03/21/19 11:19 Resp 20 03/21/19 11:19 BP 128/65 03/21/19 11:19 Pulse Ox 94 L 03/21/19 13:46 Weight - Most Recent: 132 lb 1.616 oz I&O - Last 24 Hours: Intake & Output 03/21/19 03/21/19 03/21/19 06:59 14:59 22:59 Intake Total 400 0 Output Total 2150 Balance -1750 0 Lab Results Last 24 Hours: Laboratory Results - last 24 hr 03/20/19 03/20/19 03/20/19 Range/Units 19:26 19:26 19:26 WBC 13.36 H (3.98-10.04) K/mm3 RBC 3.57 L (3.98-5.22) M/mm3 Hgb 10.5 L (11.2-15.7) gm/dl Hct 32.4 L (34.1-44.9) % MCV 90.8 (79.4-94.8) fl MCH 29.4 (25.6-32.2) pg MCHC 32.4 (32.2-35.5) g/dl RDW Std Deviation 45.8 (36.4-46.3) fL Plt Count 455 H D (182-369) K/mm3 MPV 9.2 L (9.4-12.3) fl Neut % (Auto) 70.1 (34.0-71.1) % Lymph % (Auto) 12.5 L (19.3-51.7) % [place] % (Auto) 11.5 (4.7-12.5) % Eos % (Auto) 5.3 (0.7-5.8) Baso % (Auto) 0.3 (0.1-1.2) % Neut # (Auto) 9.37 H (1.56-6.13) K/mm3 Lymph # (Auto) 1.67 (1.18-3.74) K/mm3 [place] # (Auto) 1.53 H (0.24-0.36) K/mm3 Eos # (Auto) 0.71 H (0.04-0.36) K/mm3 Baso # (Auto) 0.04 (0.01-0.08) K/mm3 Manual Slide Review Abnormal smear Puncture Site ABG pH (7.35-7.45) ABG pCO2 (35.0-45.0) mmHg ABG pO2 (80.0-100.0) mmHg ABG HCO3 (22.0-26.0) meq/L ABG O2 Saturation (96.0-97.0) % ABG Base Excess (-2-2.0) A-a Gradient mmHg O2 Delivery Device Oxygen Flow Rate FiO2 (21.00-100.00) % Sodium 130 L (136-145) mEq/L Potassium 5.1 (3.5-5.1) mEq/L Chloride 94 L (98-107) mEq/L Carbon Dioxide 30 (21-32) mEq/L Anion Gap 11.1 (5-15) BUN 23 H (7-18) mg/dL Creatinine 1.1 H (0.55-1.02) mg/dL Est Cr Clr Drug Dosing 38.82 mL/min Estimated GFR (MDRD) 48 (>60) mL/min BUN/Creatinine Ratio 20.9 H (14-18) Glucose 109 (83-115) mg/dL Serum Osmolality (280-300) mosm/kg Lactic Acid (0.4-2.0) mmol/L Calcium 9.8 (8.5-10.1) mg/dL Phosphorus (2.6-4.7) mg/dL Magnesium 1.6 L (1.8-2.4) mg/dl Total Bilirubin 0.3 (0.2-1.0) mg/dL AST 17 (15-37) U/L ALT 41 (14-59) U/L Alkaline Phosphatase 60 (46-116) U/L Troponin I < 0.017 (0.00-0.056) ng/mL C-Reactive Protein 1.0 (<1.0) mg/dL NT-Pro-B Natriuret Pep 1185 H (0-450) pg/mL Total Protein 7.6 (6.4-8.2) g/dl Albumin 3.2 L (3.4-5.0) g/dl Globulin 4.4 gm/dL Albumin/Globulin Ratio 0.7 L (1-2) TSH 3rd Generation (0.358-3.74) uIU/mL Urine Color (Yellow) Urine Appearance (Clear) Urine pH (5.0-8.0) Ur Specific [place] (1.005-1.030) Urine Protein (Negative) Urine Glucose (UA) (Negative) Urine Ketones (Negative) Urine Occult Blood (Negative) Urine Nitrite (Negative) Urine Bilirubin (Negative) Urine Urobilinogen (0.2-1.0) Ur Leukocyte Esterase (Negative) Urine RBC (0-5) /hpf Urine WBC (0-5) /hpf Ur Squamous Epith Cells (0-5) /hpf Urine Bacteria (FEW) /hpf Urine Mucus (FEW) /hpf Urine Osmolality (400-1100) mosm/kg Ur Random Sodium (40-220) mEq/L 03/20/19 03/20/19 03/20/19 Range/Units 19:26 19:26 20:10 WBC (3.98-10.04) K/mm3 RBC (3.98-5.22) M/mm3 Hgb (11.2-15.7) gm/dl Hct (34.1-44.9) % MCV (79.4-94.8) fl MCH (25.6-32.2) pg MCHC (32.2-35.5) g/dl RDW Std Deviation (36.4-46.3) fL Plt Count (182-369) K/mm3 MPV (9.4-12.3) fl Neut % (Auto) (34.0-71.1) % Lymph % (Auto) (19.3-51.7) % [place] % (Auto) (4.7-12.5) % Eos % (Auto) (0.7-5.8) Baso % (Auto) (0.1-1.2) % Neut # (Auto) (1.56-6.13) K/mm3 Lymph # (Auto) (1.18-3.74) K/mm3 [place] # (Auto) (0.24-0.36) K/mm3 Eos # (Auto) (0.04-0.36) K/mm3 Baso # (Auto) (0.01-0.08) K/mm3 Manual Slide Review Puncture Site ABG pH (7.35-7.45) ABG pCO2 (35.0-45.0) mmHg ABG pO2 (80.0-100.0) mmHg ABG HCO3 (22.0-26.0) meq/L ABG O2 Saturation (96.0-97.0) % ABG Base Excess (-2-2.0) A-a Gradient mmHg O2 Delivery Device Oxygen Flow Rate FiO2 (21.00-100.00) % Sodium (136-145) mEq/L Potassium (3.5-5.1) mEq/L Chloride (98-107) mEq/L Carbon Dioxide (21-32) mEq/L Anion Gap (5-15) BUN (7-18) mg/dL Creatinine (0.55-1.02) mg/dL Est Cr Clr Drug Dosing mL/min Estimated GFR (MDRD) (>60) mL/min BUN/Creatinine Ratio (14-18) Glucose (83-115) mg/dL Serum Osmolality 279 L (280-300) mosm/kg Lactic Acid 0.7 (0.4-2.0) mmol/L Calcium (8.5-10.1) mg/dL Phosphorus (2.6-4.7) mg/dL Magnesium (1.8-2.4) mg/dl Total Bilirubin (0.2-1.0) mg/dL AST (15-37) U/L ALT (14-59) U/L Alkaline Phosphatase (46-116) U/L Troponin I (0.00-0.056) ng/mL C-Reactive Protein (<1.0) mg/dL NT-Pro-B Natriuret Pep (0-450) pg/mL Total Protein (6.4-8.2) g/dl Albumin (3.4-5.0) g/dl Globulin gm/dL Albumin/Globulin Ratio (1-2) TSH 3rd Generation (0.358-3.74) uIU/mL Urine Color Light yellow (Yellow) Urine Appearance Clear (Clear) Urine pH 7.0 (5.0-8.0) Ur Specific [place] 1.020 (1.005-1.030) Urine Protein Trace H (Negative) Urine Glucose (UA) Negative (Negative) Urine Ketones Negative (Negative) Urine Occult Blood Negative (Negative) Urine Nitrite Negative (Negative) Urine Bilirubin Negative (Negative) Urine Urobilinogen 0.2 (0.2-1.0) Ur Leukocyte Esterase 1+ H (Negative) Urine RBC 0-5 (0-5) /hpf Urine WBC 5-10 H (0-5) /hpf Ur Squamous Epith Cells 5-10 H (0-5) /hpf Urine Bacteria Few (FEW) /hpf Urine Mucus Not seen (FEW) /hpf Urine Osmolality (400-1100) mosm/kg Ur Random Sodium (40-220) mEq/L 03/20/19 03/20/19 03/20/19 Range/Units 20:10 20:20 22:10 WBC (3.98-10.04) K/mm3 RBC (3.98-5.22) M/mm3 Hgb (11.2-15.7) gm/dl Hct (34.1-44.9) % MCV (79.4-94.8) fl MCH (25.6-32.2) pg MCHC (32.2-35.5) g/dl RDW Std Deviation (36.4-46.3) fL Plt Count (182-369) K/mm3 MPV (9.4-12.3) fl Neut % (Auto) (34.0-71.1) % Lymph % (Auto) (19.3-51.7) % [place] % (Auto) (4.7-12.5) % Eos % (Auto) (0.7-5.8) Baso % (Auto) (0.1-1.2) % Neut # (Auto) (1.56-6.13) K/mm3 Lymph # (Auto) (1.18-3.74) K/mm3 [place] # (Auto) (0.24-0.36) K/mm3 Eos # (Auto) (0.04-0.36) K/mm3 Baso # (Auto) (0.01-0.08) K/mm3 Manual Slide Review Puncture Site Rt radial ABG pH 7.29 L (7.35-7.45) ABG pCO2 62.4 H (35.0-45.0) mmHg ABG pO2 103.0 H (80.0-100.0) mmHg ABG HCO3 29.2 H (22.0-26.0) meq/L ABG O2 Saturation 96.7 (96.0-97.0) % ABG Base Excess 2.0 (-2-2.0) A-a Gradient 48 mmHg O2 Delivery Device Nasal cannula Oxygen Flow Rate 3.0 FiO2 32.00 (21.00-100.00) % Sodium (136-145) mEq/L Potassium (3.5-5.1) mEq/L Chloride (98-107) mEq/L Carbon Dioxide (21-32) mEq/L Anion Gap (5-15) BUN (7-18) mg/dL Creatinine (0.55-1.02) mg/dL Est Cr Clr Drug Dosing mL/min Estimated GFR (MDRD) (>60) mL/min BUN/Creatinine Ratio (14-18) Glucose (83-115) mg/dL Serum Osmolality (280-300) mosm/kg Lactic Acid (0.4-2.0) mmol/L Calcium (8.5-10.1) mg/dL Phosphorus (2.6-4.7) mg/dL Magnesium (1.8-2.4) mg/dl Total Bilirubin (0.2-1.0) mg/dL AST (15-37) U/L ALT (14-59) U/L Alkaline Phosphatase (46-116) U/L Troponin I (0.00-0.056) ng/mL C-Reactive Protein (<1.0) mg/dL NT-Pro-B Natriuret Pep (0-450) pg/mL Total Protein (6.4-8.2) g/dl Albumin (3.4-5.0) g/dl Globulin gm/dL Albumin/Globulin Ratio (1-2) TSH 3rd Generation (0.358-3.74) uIU/mL Urine Color (Yellow) Urine Appearance (Clear) Urine pH (5.0-8.0) Ur Specific [place] (1.005-1.030) Urine Protein (Negative) Urine Glucose (UA) (Negative) Urine Ketones (Negative) Urine Occult Blood (Negative) Urine Nitrite (Negative) Urine Bilirubin (Negative) Urine Urobilinogen (0.2-1.0) Ur Leukocyte Esterase (Negative) Urine RBC (0-5) /hpf Urine WBC (0-5) /hpf Ur Squamous Epith Cells (0-5) /hpf Urine Bacteria (FEW) /hpf Urine Mucus (FEW) /hpf Urine Osmolality 333 L (400-1100) mosm/kg Ur Random Sodium 76 (40-220) mEq/L 03/20/19 03/21/19 03/21/19 Range/Units 22:15 04:33 04:33 WBC 16.14 H (3.98-10.04) K/mm3 RBC 3.74 L (3.98-5.22) M/mm3 Hgb 11.0 L (11.2-15.7) gm/dl Hct 34.2 (34.1-44.9) % MCV 91.4 (79.4-94.8) fl MCH 29.4 (25.6-32.2) pg MCHC 32.2 (32.2-35.5) g/dl RDW Std Deviation 45.7 (36.4-46.3) fL Plt Count 463 H (182-369) K/mm3 MPV 9.6 (9.4-12.3) fl Neut % (Auto) (34.0-71.1) % Lymph % (Auto) (19.3-51.7) % [place] % (Auto) (4.7-12.5) % Eos % (Auto) (0.7-5.8) Baso % (Auto) (0.1-1.2) % Neut # (Auto) (1.56-6.13) K/mm3 Lymph # (Auto) (1.18-3.74) K/mm3 [place] # (Auto) (0.24-0.36) K/mm3 Eos # (Auto) (0.04-0.36) K/mm3 Baso # (Auto) (0.01-0.08) K/mm3 Manual Slide Review Puncture Site ABG pH (7.35-7.45) ABG pCO2 (35.0-45.0) mmHg ABG pO2 (80.0-100.0) mmHg ABG HCO3 (22.0-26.0) meq/L ABG O2 Saturation (96.0-97.0) % ABG Base Excess (-2-2.0) A-a Gradient mmHg O2 Delivery Device Oxygen Flow Rate FiO2 (21.00-100.00) % Sodium 129 L (136-145) mEq/L Potassium 5.1 (3.5-5.1) mEq/L Chloride 91 L (98-107) mEq/L Carbon Dioxide 33 H (21-32) mEq/L Anion Gap 10.1 (5-15) BUN 21 H (7-18) mg/dL Creatinine 1.2 H (0.55-1.02) mg/dL Est Cr Clr Drug Dosing 35.59 mL/min Estimated GFR (MDRD) 43 (>60) mL/min BUN/Creatinine Ratio 17.5 (14-18) Glucose 118 H (83-115) mg/dL Serum Osmolality (280-300) mosm/kg Lactic Acid 0.5 (0.4-2.0) mmol/L Calcium 9.7 (8.5-10.1) mg/dL Phosphorus 4.7 (2.6-4.7) mg/dL Magnesium 1.5 L (1.8-2.4) mg/dl Total Bilirubin (0.2-1.0) mg/dL AST (15-37) U/L ALT (14-59) U/L Alkaline Phosphatase (46-116) U/L Troponin I (0.00-0.056) ng/mL C-Reactive Protein (<1.0) mg/dL NT-Pro-B Natriuret Pep (0-450) pg/mL Total Protein (6.4-8.2) g/dl Albumin (3.4-5.0) g/dl Globulin gm/dL Albumin/Globulin Ratio (1-2) TSH 3rd Generation (0.358-3.74) uIU/mL Urine Color (Yellow) Urine Appearance (Clear) Urine pH (5.0-8.0) Ur Specific [place] (1.005-1.030) Urine Protein (Negative) Urine Glucose (UA) (Negative) Urine Ketones (Negative) Urine Occult Blood (Negative) Urine Nitrite (Negative) Urine Bilirubin (Negative) Urine Urobilinogen (0.2-1.0) Ur Leukocyte Esterase (Negative) Urine RBC (0-5) /hpf Urine WBC (0-5) /hpf Ur Squamous Epith Cells (0-5) /hpf Urine Bacteria (FEW) /hpf Urine Mucus (FEW) /hpf Urine Osmolality (400-1100) mosm/kg Ur Random Sodium (40-220) mEq/L 03/21/19 Range/Units 04:33 WBC (3.98-10.04) K/mm3 RBC (3.98-5.22) M/mm3 Hgb (11.2-15.7) gm/dl Hct (34.1-44.9) % MCV (79.4-94.8) fl MCH (25.6-32.2) pg MCHC (32.2-35.5) g/dl RDW Std Deviation (36.4-46.3) fL Plt Count (182-369) K/mm3 MPV (9.4-12.3) fl Neut % (Auto) (34.0-71.1) % Lymph % (Auto) (19.3-51.7) % [place] % (Auto) (4.7-12.5) % Eos % (Auto) (0.7-5.8) Baso % (Auto) (0.1-1.2) % Neut # (Auto) (1.56-6.13) K/mm3 Lymph # (Auto) (1.18-3.74) K/mm3 [place] # (Auto) (0.24-0.36) K/mm3 Eos # (Auto) (0.04-0.36) K/mm3 Baso # (Auto) (0.01-0.08) K/mm3 Manual Slide Review Puncture Site ABG pH (7.35-7.45) ABG pCO2 (35.0-45.0) mmHg ABG pO2 (80.0-100.0) mmHg ABG HCO3 (22.0-26.0) meq/L ABG O2 Saturation (96.0-97.0) % ABG Base Excess (-2-2.0) A-a Gradient mmHg O2 Delivery Device Oxygen Flow Rate FiO2 (21.00-100.00) % Sodium (136-145) mEq/L Potassium (3.5-5.1) mEq/L Chloride (98-107) mEq/L Carbon Dioxide (21-32) mEq/L Anion Gap (5-15) BUN (7-18) mg/dL Creatinine (0.55-1.02) mg/dL Est Cr Clr Drug Dosing mL/min Estimated GFR (MDRD) (>60) mL/min BUN/Creatinine Ratio (14-18) Glucose (83-115) mg/dL Serum Osmolality (280-300) mosm/kg Lactic Acid (0.4-2.0) mmol/L Calcium (8.5-10.1) mg/dL Phosphorus (2.6-4.7) mg/dL Magnesium (1.8-2.4) mg/dl Total Bilirubin (0.2-1.0) mg/dL AST (15-37) U/L ALT (14-59) U/L Alkaline Phosphatase (46-116) U/L Troponin I (0.00-0.056) ng/mL C-Reactive Protein (<1.0) mg/dL NT-Pro-B Natriuret Pep (0-450) pg/mL Total Protein (6.4-8.2) g/dl Albumin (3.4-5.0) g/dl Globulin gm/dL Albumin/Globulin Ratio (1-2) TSH 3rd Generation 2.407 (0.358-3.74) uIU/mL Urine Color (Yellow) Urine Appearance (Clear) Urine pH (5.0-8.0) Ur Specific [place] (1.005-1.030) Urine Protein (Negative) Urine Glucose (UA) (Negative) Urine Ketones (Negative) Urine Occult Blood (Negative) Urine Nitrite (Negative) Urine Bilirubin (Negative) Urine Urobilinogen (0.2-1.0) Ur Leukocyte Esterase (Negative) Urine RBC (0-5) /hpf Urine WBC (0-5) /hpf Ur Squamous Epith Cells (0-5) /hpf Urine Bacteria (FEW) /hpf Urine Mucus (FEW) /hpf Urine Osmolality (400-1100) mosm/kg Ur Random Sodium (40-220) mEq/L Pawel Results Last 24 Hours: Microbiology 03/20/19 20:20 Urine Culture - Preliminary Urine, Bladder NO GROWTH AFTER 1 DAY Med Orders - Current: Current Medications Albuterol/Ipratropium (Duoneb 3.0-0.5 Mg/3 Ml) 3 ml NEB Q4HRRT [facility] Last Admin: 03/21/19 13:46 Dose: 3 ml Aspirin (Aspirin) 81 mg PO BEDTIME [facility] Benzonatate (Tessalon Perles) 100 mg PO TID [facility] Last Admin: 03/21/19 08:21 Dose: 100 mg Budesonide (Pulmicort) 0.5 mg NEB BIDRT [facility] Last Admin: 03/21/19 05:44 Dose: 0.5 mg Diphenhydramine HCl (Benadryl) 25 mg PO BEDTIME PRN PRN Reason: Insomnia Enoxaparin Sodium (Lovenox) 40 mg SUBCUT DAILY [facility] Last Admin: 03/21/19 08:21 Dose: 40 mg Furosemide (Lasix) 40 mg PO DAILY [facility] Guaifenesin (Mucinex) 600 mg PO BID [facility] Meropenem 1 gm/ Sodium (Chloride) 50 mls @ 16.667 mls/hr IV Q12H [facility] Last Admin: 03/21/19 08:22 Dose: 16.667 mls/hr Non-Formulary Medication (Fluticasone/Salmeterol) 1 puff PO BID [facility] Non-Formulary Medication (Pravastatin) 40 mg PO BEDTIME [facility] Oral Electrolytes (Thermotabs) 2 each PO TID [facility] Tobramycin/Nebulizer 300 Mg/5 Ml Pack Ptom 0 each INH Q12H [facility] Last Admin: 03/21/19 09:00 Dose: 1 each Sodium Chloride (Saline Flush) 10 ml FLUSH ASDIRECTED PRN PRN Reason: Keep Vein Open Last Admin: 03/20/19 19:44 Dose: 10 ml Discontinued Medications Acetylcysteine (Mucomyst 20%) 800 mg NEB BIDRT [facility] Last Admin: 03/21/19 05:44 Dose: 800 mg Furosemide (Lasix) 40 mg IVPUSH NOW ONE Stop: 03/20/19 21:24 Last Admin: 03/20/19 22:57 Dose: 40 mg Guaifenesin (Robitussin) 200 mg PO Q8H [facility] Last Admin: 03/21/19 08:21 Dose: 200 mg Magnesium Sulfate 4 gm/ Premix 50 mls @ 12.5 mls/hr IV ONETIME ONE Stop: 11/06/19 13:59 Last Admin: 03/21/19 13:03 Dose: 12.5 mls/hr Levalbuterol HCl (Xopenex) 1.25 mg NEB ONETIME ONE Stop: 03/20/19 19:46 Last Admin: 03/20/19 20:24 Dose: 1.25 mg Lorazepam (Ativan) 0.25 mg IVPUSH ONETIME ONE Stop: 03/21/19 07:17 Last Admin: 03/21/19 08:17 Dose: 0.25 mg Meropenem (Merrem) gm IV Q12H MICHELA - Exam Quality Assessment: Supplemental Oxygen General: Alert, Oriented HEENT: Pupils Equal Neck: Supple Lungs: No: Normal Respiratory Effort (increased respiratory effort with slight increase in rate. Upper airway noise with decreased breath sounds.) Cardiovascular: Regular Rate, Regular Rhythm GI/Abdominal Exam: Normal Bowel Sounds, Soft, Non-Tender, No Organomegaly, No Distention, No Abnormal Bruit, No Mass Extremities: Normal Inspection, Normal Range of Motion, Non-Tender, No Pedal Edema, Normal Capillary Refill Skin: Warm, Dry, Intact Psy/Mental Status: Alert, Normal Affect, Normal Mood - Problem List Review Problem List Initiated/Reviewed/Updated: Yes - My Orders Last 24 Hours: My Active Orders 03/21/19 07:30 Meropenem [Merrem] 1 gm Sodium Chloride 0.9% [Normal Saline] 50 ml IV Q12H 03/21/19 08:00 Patient's Own Medication [Ptom] 0 each INH Q12H 03/21/19 09:27 diphenhydrAMINE [Benadryl] 25 mg PO BEDTIME PRN 03/21/19 10:00 guaiFENesin [Mucinex] 600 mg PO BID 03/21/19 13:15 Consult to Physician [CONS] Routine 03/21/19 13:17 Notify Provider Consults [RC] ASDIRECTED Notify Provider Consults [RC] ASDIRECTED Consult to Physician [CONS] Routine 03/21/19 15:00 Sodium Chloride/KCl [Thermotabs] 2 each PO TID 03/21/19 15:29 ABG [BLOOD GAS ARTERIAL] [BG] Urgent 03/21/19 21:00 Aspirin 81 mg PO BEDTIME Fluticasone/Salmeterol 1 puff PO BID Pravastatin 40 mg PO BEDTIME 03/21/19 Lunch Fluid Restriction [DIET] 03/22/19 09:00 Furosemide [Lasix] 40 mg PO DAILY - Plan Plan:: End stage chronic obstructive pulmonary disease COPD exacerbation Acute on chronic hypercapnic respiratory failure Recurrent admits for exacerbations, 3 in the past 2 months On Inhaled tobramycin Pending to complete meropenem treatment for pneumonia 2/2 pseudomonas - per Dr. Richmond PLAN - Influenza screen - Tessalon Perles 100 mg 3 times a day - Budesonide nebulizations twice a day - Guaifenesin 600 mg every 12 hours - Duo nebs every 4h - Solumedrol today and taper tomorrow Chronic kidney disease (CKD), stage III (moderate) PLAN - Monitor urine output - Renally dosed medications - Avoid nephrotoxic agents as much as possible - Maintain balance close to neutral - Repeat chemistries with adjustments as required Euvolemic hyponatremia - SIADH Urine sodium above 40 and urine osmolality above 100 Options for etiology are Thyroid disease or adrenal insufficiency Potassium is borderline PLAN - CMP am - AM cortisol ordered - TSH nl - Fluid restriction and salt tabs. Pseudomonas aeruginosa colonization On Inhaled tobramycin PROPHYLAXIS DVT- Lovenox GI- Not indicated CODE STATUS: FULL CODE DISPOSITION: Patient will be admitted for respiratory therapy with CPT and stabilization of respiratory status. PT/OT evaluation prior to dc.
[2019-03-21] MEDS: guaiFENesin 600 MG Tab.ER PO SCH ×2 (15:50→21:24)
[2019-03-21] MEDS: Sodium Chloride/Potassium Chloride Tab PO SCH ×2 (16:05→21:24)
[2019-03-21] MEDS: methylPREDNISolone Sodium Succinate 40 MG/1 ML SDV IVPUSH SCH ×2 (16:09→21:20)
--- NOTE | 2019-03-21 16:22 | PCM.SN ---
- Free Text/Narrative Note: repeat arterial blood gas at 1700: PH 7.29, PCO2 64.1, PO2 68, HCO3 29.9 Respiratory alkalosis Patient will be restarted on BiPAP. She did not tolerate BiPAP last night, therefore we will use Ativan 0.5 mg by mouth every 4 hours when necessary anxiety.
[2019-03-21] MEDS: LORazepam 0.5 MG Tab PO PRN ×2 (17:07→23:00)
[2019-03-21] MEDS ORDERED: Non-Formulary Medication 1 Each (Fluticasone/Salmeterol 1 PUFF) PO SCH (21:00)
[2019-03-21] MEDS: Aspirin 81 MG Tab.Chew PO SCH (21:23)
[2019-03-21] MEDS: Simvastatin 20 MG Tab PO SCH (21:24)
[2019-03-22] MEDS: Albuterol/Ipratropium 3.0-0.5 MG/3 ML Neb Soln NEB SCH ×5 (01:46→17:49)
[2019-03-22] MEDS: Budesonide 0.5 MG/2 ML Neb Susp NEB SCH ×2 (06:30→21:01)
[2019-03-22] MEDS: Enoxaparin 40 MG/0.4 ML Syringe SUBCUT SCH (08:28)
[2019-03-22] MEDS: Sodium Chloride/Potassium Chloride Tab PO SCH ×3 (08:28→20:20)
[2019-03-22] MEDS: guaiFENesin 600 MG Tab.ER PO SCH ×2 (08:29→20:21)
[2019-03-22] MEDS: Furosemide 40 MG Tab PO SCH (08:29)
[2019-03-22] MEDS: Benzonatate 100 MG Cap PO SCH ×3 (08:29→20:20)
[2019-03-22] MEDS: methylPREDNISolone Sodium Succinate 40 MG/1 ML SDV IVPUSH SCH ×4 (08:41→21:27)
[2019-03-22] MEDS: TOBRAMYCIN 300 MG/5 ML INH SCH ×2 (09:08→21:34)
--- NOTE | 2019-03-22 10:06 | CONS ---
CONSULTING PHYSICIAN: Emiliano Perez MD DATE OF CONSULTATION: 03/21/2019 Site where the services are provided is [facility]. Site where the services are provided from our office is in [facility]. Length of service for this 60-minute inpatient telemedicine event is 60 minutes. IDENTIFICATION: The patient is a 79-year-old female, who is admitted to the inpatient Med/Surg Unit at [facility]. She is seen for psychiatric consultation per the request of staff attending, Dr. Louie, and his treatment team. The patient's , daughter, Taryn, and granddaughter, Mario, are all present for the interview and also participate in the interview with the patient. CHIEF COMPLAINT: "I can breathe." HISTORY OF PRESENT ILLNESS: The patient is a 79-year-old female, who reports that she has a history of COPD and had been doing well prior to her admission on 03/20/2019. She states a few days before her admission "I got sick" with some type of viral or bacterial illness and she began having increasing difficulty breathing. She was admitted for COPD exacerbation. The patient is denying that she has had any struggle with depression or anxiety before this most recent episode of COPD exacerbation. Per daughter's report, the patient has been having some anxiety and panic attacks that are related to "I think claustrophobia" that are involving nebulizer treatments "because they had to put a mask over her nose and mouth." The daughter is stating and the patient is agreeing that this really just started since the patient came into the hospital. The family again are denying any psychiatric pathology prior to admission and they are wondering if something can be done to help her with the anxiety. The patient's daughter noticed that the patient began having some claustrophobic symptoms "while we were in [place] visiting the [employer]" and she relates that the patient started to have some difficulty going into closed spaces in the city. They do report that the patient was given a little bit of Ativan before one of the nebulizer treatments "about 10 minutes beforehand" since they are reporting that the patient did better and they are wondering if at least for the time being the patient could get little bit of Ativan for the nebulizer treatments at least while she is in the hospital. Otherwise, they have no major complaints, and the patient denied any problems again with ongoing depression, suicidal or homicidal ideation, or any vegetative symptoms of depression such as poor sleep. The patient denies any illicit substance use or excessive alcohol use complicating the clinical picture. MEDICATIONS: Psychiatric medications prior to admission, none. ALLERGIES: 1. Latex. 2. Codeine. 3. Doxycycline. 4. Neosporin. 5. Symbicort. 6. Levaquin. PAST MEDICAL HISTORY: COPD. REVIEW OF SYSTEMS: Aside from pulmonary, all other major organ systems are negative at this point in time for acute difficulty or complications. FAMILY PSYCHIATRIC AND CD HISTORY: The patient denies. PAST PSYCHIATRIC AND CD HISTORY: Essentially negative. The patient denies any previous psychiatric hospitalizations or chemical dependency treatments. She reports no prior psychiatric medication trials. SOCIAL HISTORY: The patient was born and raised in [place]. She has 10 children. [place] was [place]. The patient states that she has 10 kids and she is currently living in [place], [place], with her , and her daughter and granddaughter live in the area. MENTAL STATUS EXAM: The patient is a 79-year-old, pleasant, soft-spoken, slender white female, in no apparent distress. Speech is of regular rate and rhythm. There are no abnormal motor movements or tics observed. Gait and station are not observed. This patient is lying in bed during the course her interview. The patient is cognitively oriented x3. Mood is tired and somewhat anxious. Affect is consistent with stated mood, but cooperative overall for the purposes of the inpatient consult. There is no behavioral or stated evidence of acute suicidal or homicidal ideation or acute psychotic, delusional, or paranoid symptoms. Thought processes are organized. There are no manic symptoms or loose associations evident. Judgment and insight appear unimpaired at this point in time. Motivation for help is good. VITALS: 133/73, 107, 28, 98.4 degrees. IMPRESSION: [place] I: Anxiety disorder, not otherwise specified. [place] II: None. [place] III: 1. History of chronic obstructive pulmonary disease. 2. History of chronic obstructive pulmonary disease exacerbation. [place] IV: Severe. [place] V: 55. PLAN: 1. Recommend giving the patient Ativan 0.25 mg IV push about 10 minutes before the patient's nebulizer treatments and only while she is in the hospital as the Ativan when given with too much of a dose or too much of frequency could actually have a counterproductive effect on the patient's pulmonary capacity. This was explained to the patient and the family and they did acknowledge they understand these facts. 2. Other medications and treatment plan as laid out by the patient's primary inpatient medical treatment team. 3. We will continue follow up with the patient on an as-needed basis while she remains on the inpatient Med/Surg unit. 4. We will follow up with the patient sooner if there are any complications in the interim. 5. Crisis plan is in place. DEBBIE /[id number]
[2019-03-22] MEDS ORDERED: Ondansetron 4 MG/2 ML SDV IVPUSH PRN (13:39)
[2019-03-22] MEDS: LORazepam 0.5 MG Tab PO PRN ×2 (13:50→21:28)
--- NOTE | 2019-03-22 17:06 | PCM.PN ---
- General Info Date of Service: 03/22/19 Admission Dx/Problem (Free Text): Admission Diagnosis/Problem Admission Diagnosis/Problem Chronic obstructive pulmonary disease Subjective Update: Soraida had a good night on BiPAP. She rested comfortably and her morning blood gas was improved. Functional Status: Reports: Pain Controlled - Review of Systems General: Reports: No Symptoms HEENT: Reports: No Symptoms Pulmonary: Reports: Shortness of Breath, Cough Cardiovascular: Reports: No Symptoms Gastrointestinal: Reports: No Symptoms - Patient Data Vitals - Most Recent: Last Vital Signs Temp 98.2 F 03/22/19 11:25 Pulse 102 H 03/22/19 11:25 Resp 18 03/22/19 11:25 BP 144/104 H 03/22/19 11:25 Pulse Ox 96 03/22/19 13:29 Weight - Most Recent: 134 lb 8 oz I&O - Last 24 Hours: Intake & Output 03/22/19 03/22/19 03/22/19 06:59 14:59 22:59 Intake Total 350 300 180 Output Total 550 Balance -200 300 180 Lab Results Last 24 Hours: Laboratory Results - last 24 hr 03/21/19 03/21/19 03/22/19 Range/Units 07:55 20:26 06:00 WBC (3.98-10.04) K/mm3 RBC (3.98-5.22) M/mm3 Hgb (11.2-15.7) gm/dl Hct (34.1-44.9) % MCV (79.4-94.8) fl MCH (25.6-32.2) pg MCHC (32.2-35.5) g/dl RDW Std Deviation (36.4-46.3) fL Plt Count (182-369) K/mm3 MPV (9.4-12.3) fl Neut % (Auto) (34.0-71.1) % Lymph % (Auto) (19.3-51.7) % [place] % (Auto) (4.7-12.5) % Eos % (Auto) (0.7-5.8) Baso % (Auto) (0.1-1.2) % Neut # (Auto) (1.56-6.13) K/mm3 Lymph # (Auto) (1.18-3.74) K/mm3 [place] # (Auto) (0.24-0.36) K/mm3 Eos # (Auto) (0.04-0.36) K/mm3 Baso # (Auto) (0.01-0.08) K/mm3 Manual Slide Review Puncture Site Rt radial Rt radial ABG pH 7.33 L 7.33 L (7.35-7.45) ABG pCO2 63.3 H 57.4 H (35.0-45.0) mmHg ABG pO2 72.0 L 88.0 (80.0-100.0) mmHg ABG HCO3 32.1 H 29.4 H (22.0-26.0) meq/L ABG O2 Saturation 92.5 L 96.2 (96.0-97.0) % ABG Base Excess 5.2 H 2.8 H (-2-2.0) Patrick Test Positive Positive A-a Gradient mmHg O2 Delivery Device Bipap Bipap Oxygen Flow Rate FiO2 4.00 L 4.00 L (21.00-100.00) % PEEP 5.0 6.0 cmH20 Pressure Support 10.0 12.0 cmH2O Sodium (136-145) mEq/L Potassium (3.5-5.1) mEq/L Chloride (98-107) mEq/L Carbon Dioxide (21-32) mEq/L Anion Gap (5-15) BUN (7-18) mg/dL Creatinine (0.55-1.02) mg/dL Est Cr Clr Drug Dosing mL/min Estimated GFR (MDRD) (>60) mL/min BUN/Creatinine Ratio (14-18) Glucose (83-115) mg/dL Calcium (8.5-10.1) mg/dL Magnesium (1.8-2.4) mg/dl Total Bilirubin (0.2-1.0) mg/dL AST (15-37) U/L ALT (14-59) U/L Alkaline Phosphatase (46-116) U/L Total Protein (6.4-8.2) g/dl Albumin (3.4-5.0) g/dl Globulin gm/dL Albumin/Globulin Ratio (1-2) Cortisol 36.1 ug/dL 03/22/19 03/22/19 03/22/19 Range/Units 08:40 08:40 11:06 WBC 8.72 (3.98-10.04) K/mm3 RBC 3.56 L (3.98-5.22) M/mm3 Hgb 10.3 L (11.2-15.7) gm/dl Hct 32.8 L (34.1-44.9) % MCV 92.1 (79.4-94.8) fl MCH 28.9 (25.6-32.2) pg MCHC 31.4 L (32.2-35.5) g/dl RDW Std Deviation 46.2 (36.4-46.3) fL Plt Count 454 H (182-369) K/mm3 MPV 9.1 L (9.4-12.3) fl Neut % (Auto) 88.5 H (34.0-71.1) % Lymph % (Auto) 5.5 L (19.3-51.7) % [place] % (Auto) 5.7 (4.7-12.5) % Eos % (Auto) 0 L (0.7-5.8) Baso % (Auto) 0.1 (0.1-1.2) % Neut # (Auto) 7.71 H (1.56-6.13) K/mm3 Lymph # (Auto) 0.48 L (1.18-3.74) K/mm3 [place] # (Auto) 0.50 H (0.24-0.36) K/mm3 Eos # (Auto) 0.00 L (0.04-0.36) K/mm3 Baso # (Auto) 0.01 (0.01-0.08) K/mm3 Manual Slide Review Abnormal smear Puncture Site Lt radial ABG pH 7.33 L (7.35-7.45) ABG pCO2 62.9 H (35.0-45.0) mmHg ABG pO2 104.0 H (80.0-100.0) mmHg ABG HCO3 32.0 H (22.0-26.0) meq/L ABG O2 Saturation 97.9 H (96.0-97.0) % ABG Base Excess 5.3 H (-2-2.0) Patrick Test Positive A-a Gradient 46 mmHg O2 Delivery Device Nasal cannula Oxygen Flow Rate 3.0 FiO2 32.00 (21.00-100.00) % PEEP cmH20 Pressure Support cmH2O Sodium 129 L (136-145) mEq/L Potassium 5.3 H (3.5-5.1) mEq/L Chloride 94 L (98-107) mEq/L Carbon Dioxide 32 (21-32) mEq/L Anion Gap 8.3 (5-15) BUN 22 H (7-18) mg/dL Creatinine 1.0 (0.55-1.02) mg/dL Est Cr Clr Drug Dosing 42.94 mL/min Estimated GFR (MDRD) 53 (>60) mL/min BUN/Creatinine Ratio 22.0 H (14-18) Glucose 138 H (83-115) mg/dL Calcium 9.0 (8.5-10.1) mg/dL Magnesium 2.2 (1.8-2.4) mg/dl Total Bilirubin 0.3 (0.2-1.0) mg/dL AST 15 (15-37) U/L ALT 34 (14-59) U/L Alkaline Phosphatase 59 (46-116) U/L Total Protein 7.8 (6.4-8.2) g/dl Albumin 3.2 L (3.4-5.0) g/dl Globulin 4.6 gm/dL Albumin/Globulin Ratio 0.7 L (1-2) Cortisol ug/dL Pawel Results Last 24 Hours: Microbiology 03/20/19 20:20 Urine Culture - Final Urine, Bladder NO GROWTH AFTER 2 DAYS 03/21/19 16:21 Influenza Type A Antigen Screen - Final Nasal, Unspecified NEGATIVE INFLUENZA A VIRUS AG REFERENCE RANGE: NEGATIVE Influenza Type B Antigen Screen - Final NEGATIVE INFLUENZA B VIRUS AG REFERENCE RANGE: NEGATIVE Med Orders - Current: Current Medications Albuterol/Ipratropium (Duoneb 3.0-0.5 Mg/3 Ml) 3 ml NEB Q4HRRT [facility] Last Admin: 03/22/19 13:29 Dose: 3 ml Aspirin (Aspirin) 81 mg PO BEDTIME [facility] Last Admin: 03/21/19 21:23 Dose: 81 mg Benzonatate (Tessalon Perles) 100 mg PO TID [facility] Last Admin: 03/22/19 16:56 Dose: 100 mg Budesonide (Pulmicort) 0.5 mg NEB BIDRT [facility] Last Admin: 03/22/19 06:30 Dose: 0.5 mg Diphenhydramine HCl (Benadryl) 25 mg PO BEDTIME PRN PRN Reason: Insomnia Enoxaparin Sodium (Lovenox) 40 mg SUBCUT DAILY [facility] Last Admin: 03/22/19 08:28 Dose: 40 mg Furosemide (Lasix) 40 mg PO DAILY [facility] Last Admin: 03/22/19 08:29 Dose: 40 mg Guaifenesin (Mucinex) 600 mg PO BID [facility] Last Admin: 03/22/19 08:29 Dose: 600 mg Meropenem 1 gm/ Sodium (Chloride) 50 mls @ 16.667 mls/hr IV Q12H [facility] Last Admin: 03/22/19 08:28 Dose: 16.667 mls/hr Lorazepam (Ativan) 0.5 mg PO Q4H PRN PRN Reason: Anxiety Last Admin: 03/22/19 13:50 Dose: 0.5 mg Methylprednisolone Sodium Succinate (Solu-Medrol) 40 mg IVPUSH Q6H [facility] Last Admin: 03/22/19 16:56 Dose: 40 mg Ondansetron HCl (Zofran) 4 mg IVPUSH Q4H PRN PRN Reason: Nausea Last Admin: 03/22/19 13:51 Dose: 4 mg Oral Electrolytes (Thermotabs) 2 each PO TID [facility] Last Admin: 03/22/19 16:56 Dose: 2 each Tobramycin Neb 300 (Mg/5 Ml Ptom) 1 each INH Q12H [facility] Simvastatin (Zocor) 20 mg PO BEDTIME [facility] Last Admin: 03/21/19 21:24 Dose: 20 mg Sodium Chloride (Saline Flush) 10 ml FLUSH ASDIRECTED PRN PRN Reason: Keep Vein Open Last Admin: 03/20/19 19:44 Dose: 10 ml Discontinued Medications Acetylcysteine (Mucomyst 20%) 800 mg NEB BIDRT [facility] Last Admin: 03/21/19 05:44 Dose: 800 mg Furosemide (Lasix) 40 mg IVPUSH NOW ONE Stop: 03/20/19 21:24 Last Admin: 03/20/19 22:57 Dose: 40 mg Guaifenesin (Robitussin) 200 mg PO Q8H [facility] Last Admin: 03/21/19 08:21 Dose: 200 mg Magnesium Sulfate 4 gm/ Premix 50 mls @ 12.5 mls/hr IV ONETIME ONE Stop: 03/21/19 13:59 Last Admin: 03/21/19 13:03 Dose: 12.5 mls/hr Levalbuterol HCl (Xopenex) 1.25 mg NEB ONETIME ONE Stop: 03/20/19 19:46 Last Admin: 03/20/19 20:24 Dose: 1.25 mg Lorazepam (Ativan) 0.25 mg IVPUSH ONETIME ONE Stop: 03/21/19 07:17 Last Admin: 03/21/19 08:17 Dose: 0.25 mg Meropenem (Merrem) gm IV Q12H [facility] Non-Formulary Medication (Fluticasone/Salmeterol) 1 puff PO BID [facility] Tobramycin/Nebulizer 300 Mg/5 Ml Pack Ptom 0 each INH Q12H [facility] Last Admin: 03/22/19 09:08 Dose: 1 each - Exam Quality Assessment: Supplemental Oxygen General: Alert, Oriented HEENT: Pupils Equal Neck: Supple Lungs: Decreased Breath Sounds, Wheezing Cardiovascular: Regular Rhythm, Tachycardia GI/Abdominal Exam: Normal Bowel Sounds, Soft, Non-Tender, No Distention Extremities: Normal Inspection, Normal Range of Motion, Non-Tender, No Pedal Edema, Normal Capillary Refill - Problem List Review Problem List Initiated/Reviewed/Updated: Yes - My Orders Last 24 Hours: My Active Orders 03/21/19 16:00 methylPREDNISolone Sod Succ [Solu-MEDROL] 40 mg IVPUSH Q6H 03/21/19 16:22 LORazepam [Ativan] 0.5 mg PO Q4H PRN 03/21/19 20:26 Patient Status [ADT] Routine 03/21/19 21:00 Aspirin 81 mg PO BEDTIME Simvastatin [Zocor] 20 mg PO BEDTIME 03/22/19 09:00 Furosemide [Lasix] 40 mg PO DAILY 03/22/19 13:39 Ondansetron [Zofran] 4 mg IVPUSH Q4H PRN 03/22/19 22:00 Patient's Own Medication [Ptom] 1 each INH Q12H 03/23/19 05:11 CBC WITH AUTO DIFF [HEME] AM CMP [COMPREHENSIVE METABOLIC PN,CMP] [CHEM] AM MAGNESIUM [CHEM] AM 03/24/19 05:11 CBC WITH AUTO DIFF [HEME] AM CMP [COMPREHENSIVE METABOLIC PN,CMP] [CHEM] AM MAGNESIUM [CHEM] AM 03/25/19 05:11 CBC WITH AUTO DIFF [HEME] AM CMP [COMPREHENSIVE METABOLIC PN,CMP] [CHEM] AM MAGNESIUM [CHEM] AM - Plan Plan:: End stage chronic obstructive pulmonary disease COPD exacerbation Acute on chronic hypercapnic respiratory failure Recurrent admits for exacerbations, 3 in the past 2 months On Inhaled tobramycin Pending to complete meropenem treatment for pneumonia 2/2 pseudomonas - per Dr. Richmond ABG pCO2 57.4 on BiPAP, but 62 off BiPAP PLAN - Influenza screen - neg - Tessalon Perles 100 mg 3 times a day - Budesonide nebulizations twice a day - Guaifenesin 600 mg every 12 hours - Duo nebs every 4h - Solumedrol today and taper tomorrow - BiPAP as tolerated Anxiety - Dr. Perez consulted - Sinus tachycardia worsened when on BiPAP - Ativan to help with anxiety on BiPAP Chronic kidney disease (CKD), stage III (moderate) Hyperkalemia (5.3) - not on potassium Potassium chronically high end of normal (5.1 on admission) PLAN - Restarted Lasix this am - Monitor urine output - Renally dosed medications - Avoid nephrotoxic agents as much as possible - Maintain balance close to neutral - Repeat chemistries with adjustments as required Euvolemic hyponatremia - SIADH No change overnight. Urine sodium above 40 and urine osmolality above 100 Options for etiology are Thyroid disease or adrenal insufficiency Potassium is borderline PLAN - CMP am - AM cortisol ordered - TSH nl - Fluid restriction and salt tabs. Pseudomonas aeruginosa colonization On Inhaled tobramycin PROPHYLAXIS DVT- Lovenox GI- Not indicated CODE STATUS: FULL CODE DISPOSITION: Patient will be admitted for respiratory therapy with CPT and stabilization of respiratory status. PT/OT evaluation prior to dc.
[2019-03-22] MEDS ORDERED: Levalbuterol HCl 1.25 MG/3 ML Neb NEB PRN (19:01)
--- NOTE | 2019-03-22 19:05 | PCM.SN ---
- Free Text/Narrative Note: Soraida is in sinus tachycardia likely 2/2 to albuterol, increased work of breathing, and anxiety from BiPAP. I will switch to Xopenex and decrease frequency of breathing treatments.
[2019-03-22] MEDS: Acetaminophen 325 MG Tab PO PRN (20:18)
[2019-03-22] MEDS: Simvastatin 20 MG Tab PO SCH (20:21)
[2019-03-22] MEDS: Aspirin 81 MG Tab.Chew PO SCH (20:21)
[2019-03-22] MEDS: Levalbuterol HCl 1.25 MG/3 ML Neb NEB SCH (21:01)
[2019-03-22] MEDS: Ipratropium 0.02% 0.5 MG/2.5 ML Neb Soln NEB SCH (21:01)
[2019-03-23] MEDS ORDERED: Levalbuterol HCl 1.25 MG/0.5 ML Neb ONE (03:24)
[2019-03-23] MEDS: Levalbuterol HCl 1.25 MG/0.5 ML Neb NEB SCH ×4 (03:26→22:04)
[2019-03-23] MEDS: Ipratropium 0.02% 0.5 MG/2.5 ML Neb Soln NEB SCH ×4 (03:26→22:04)
[2019-03-23] MEDS: methylPREDNISolone Sodium Succinate 40 MG/1 ML SDV IVPUSH SCH ×3 (05:06→16:09)
[2019-03-23] MEDS: Budesonide 0.5 MG/2 ML Neb Susp NEB SCH ×2 (06:25→15:14)
[2019-03-23] MEDS: Enoxaparin 40 MG/0.4 ML Syringe SUBCUT SCH (08:54)
[2019-03-23] MEDS: Furosemide 40 MG Tab PO SCH (08:54)
[2019-03-23] MEDS: Benzonatate 100 MG Cap PO SCH ×3 (08:54→20:33)
[2019-03-23] MEDS: guaiFENesin 600 MG Tab.ER PO SCH ×2 (08:54→20:34)
[2019-03-23] MEDS: TOBRAMYCIN 300 MG/5 ML INH SCH ×2 (09:09→21:02)
[2019-03-23] MEDS: Sodium Polystyrene Sulfonate 15 GM/60 ML Susp 60 ML Bot PO SCH ×2 (10:09→16:08)
--- NOTE | 2019-03-23 16:01 | PCM.PN ---
- General Info Date of Service: 03/23/19 Admission Dx/Problem (Free Text): Admission Diagnosis/Problem Admission Diagnosis/Problem Chronic obstructive pulmonary disease Subjective Update: Soraida is tolerating BiPAP at night, but once off BiPAP her pCO2 starts to climb. She continues with a wet cough and difficulty mobilizing phlegm. She requested her FiO2 to be increased to 3 L NC and her ABG following the increase showed pH 7.28, PCO2 73.1, PO2 95, HCO3 33.5. Spoke with her finishing technician Dr. Prater who recommended BiPAP with IPAP of 15 and hypertonic saline nebs every 4 hours. Functional Status: Reports: Pain Controlled - Review of Systems General: Reports: Fatigue HEENT: Reports: Sore Throat (dry throat) Pulmonary: Reports: Shortness of Breath, Cough Cardiovascular: Reports: No Symptoms. Denies: Chest Pain Gastrointestinal: Reports: No Symptoms Genitourinary: Reports: No Symptoms Musculoskeletal: Reports: No Symptoms - Patient Data Vitals - Most Recent: Last Vital Signs Temp 98.8 F 03/23/19 11:27 Pulse 112 H 03/23/19 11:27 Resp 18 03/23/19 11:27 BP 119/77 03/23/19 11:27 Pulse Ox 93 L 03/23/19 15:19 Weight - Most Recent: 134 lb 8 oz I&O - Last 24 Hours: Intake & Output 03/23/19 03/23/19 03/23/19 06:59 14:59 22:59 Intake Total 300 0 Output Total 550 Balance -250 0 Lab Results Last 24 Hours: Laboratory Results - last 24 hr 03/23/19 03/23/19 03/23/19 Range/Units 06:45 06:45 14:10 WBC 9.29 (3.98-10.04) K/mm3 RBC 3.46 L (3.98-5.22) M/mm3 Hgb 9.9 L (11.2-15.7) gm/dl Hct 32.5 L (34.1-44.9) % MCV 93.9 (79.4-94.8) fl MCH 28.6 (25.6-32.2) pg MCHC 30.5 L (32.2-35.5) g/dl RDW Std Deviation 47.9 H (36.4-46.3) fL Plt Count 437 H (182-369) K/mm3 MPV 9.5 (9.4-12.3) fl Neut % (Auto) 91.2 H (34.0-71.1) % Lymph % (Auto) 4.2 L (19.3-51.7) % [place] % (Auto) 4.4 L (4.7-12.5) % Eos % (Auto) 0 L (0.7-5.8) Baso % (Auto) 0.0 L (0.1-1.2) % Neut # (Auto) 8.47 H (1.56-6.13) K/mm3 Lymph # (Auto) 0.39 L (1.18-3.74) K/mm3 [place] # (Auto) 0.41 H (0.24-0.36) K/mm3 Eos # (Auto) 0.00 L (0.04-0.36) K/mm3 Baso # (Auto) 0.00 L (0.01-0.08) K/mm3 Manual Slide Review Abnormal smear Puncture Site Rt radial ABG pH 7.28 L (7.35-7.45) ABG pCO2 73.1 H* (35.0-45.0) mmHg ABG pO2 95.0 (80.0-100.0) mmHg ABG HCO3 33.5 H (22.0-26.0) meq/L ABG O2 Saturation 97.2 H (96.0-97.0) % ABG Base Excess 5.6 H (-2-2.0) A-a Gradient 42 mmHg O2 Delivery Device Nasal cannula Oxygen Flow Rate 3.0 FiO2 32.00 (21.00-100.00) % Sodium 132 L (136-145) mEq/L Potassium 5.8 H (3.5-5.1) mEq/L Chloride 95 L (98-107) mEq/L Carbon Dioxide 32 (21-32) mEq/L Anion Gap 10.8 (5-15) BUN 27 H (7-18) mg/dL Creatinine 1.2 H (0.55-1.02) mg/dL Est Cr Clr Drug Dosing 35.78 mL/min Estimated GFR (MDRD) 43 (>60) mL/min BUN/Creatinine Ratio 22.5 H (14-18) Glucose 118 H (83-115) mg/dL Calcium 8.9 (8.5-10.1) mg/dL Magnesium 2.0 (1.8-2.4) mg/dl Total Bilirubin 0.3 (0.2-1.0) mg/dL AST 20 (15-37) U/L ALT 32 (14-59) U/L Alkaline Phosphatase 55 (46-116) U/L Total Protein 7.6 (6.4-8.2) g/dl Albumin 3.2 L (3.4-5.0) g/dl Globulin 4.4 gm/dL Albumin/Globulin Ratio 0.7 L (1-2) Pawel Results Last 24 Hours: Microbiology 03/20/19 20:20 Urine Culture - Final Urine, Bladder NO GROWTH AFTER 2 DAYS Med Orders - Current: Current Medications Acetaminophen (Tylenol) 650 mg PO Q4H PRN PRN Reason: Pain Last Admin: 03/22/19 20:18 Dose: 650 mg Aspirin (Aspirin) 81 mg PO BEDTIME [facility] Last Admin: 03/22/19 20:21 Dose: 81 mg Benzonatate (Tessalon Perles) 100 mg PO TID [facility] Last Admin: 03/23/19 08:54 Dose: 100 mg Budesonide (Pulmicort) 0.5 mg NEB BID@1500,0300 [facility] Last Admin: 03/23/19 15:14 Dose: 0.5 mg Diphenhydramine HCl (Benadryl) 25 mg PO BEDTIME PRN PRN Reason: Insomnia Enoxaparin Sodium (Lovenox) 40 mg SUBCUT DAILY [facility] Last Admin: 03/23/19 08:54 Dose: 40 mg Furosemide (Lasix) 40 mg PO DAILY [facility] Last Admin: 03/23/19 08:54 Dose: 40 mg Guaifenesin (Mucinex) 600 mg PO BID [facility] Last Admin: 03/23/19 08:54 Dose: 600 mg Meropenem 1 gm/ Sodium (Chloride) 50 mls @ 16.667 mls/hr IV Q12H [facility] Last Admin: 03/23/19 07:06 Dose: 16.667 mls/hr Ipratropium [place] (Atrovent) 0.5 mg NEB Q6HRRT [facility] Last Admin: 03/23/19 15:14 Dose: 0.5 mg Levalbuterol HCl (Xopenex) 1.25 mg NEB Q2H PRN PRN Reason: Wheezing Levalbuterol HCl (Xopenex) 1.25 mg NEB Q6HRRT [facility] Last Admin: 03/23/19 15:14 Dose: 1.25 mg Lorazepam (Ativan) 0.5 mg PO Q4H PRN PRN Reason: Anxiety Last Admin: 03/22/19 21:28 Dose: 0.5 mg Methylprednisolone Sodium Succinate (Solu-Medrol) 40 mg IVPUSH Q8H [facility] Stop: 03/24/19 01:01 Ondansetron HCl (Zofran) 4 mg IVPUSH Q4H PRN PRN Reason: Nausea Last Admin: 03/22/19 13:51 Dose: 4 mg Tobramycin Neb 300 (Mg/5 Ml Ptom) 1 each INH Q12H [facility] Last Admin: 03/23/19 09:09 Dose: 1 each Prednisone (Prednisone) 40 mg PO DAILY [facility] Simvastatin (Zocor) 20 mg PO BEDTIME [facility] Last Admin: 03/22/19 20:21 Dose: 20 mg Sodium Chloride (Saline Flush) 10 ml FLUSH ASDIRECTED PRN PRN Reason: Keep Vein Open Last Admin: 03/20/19 19:44 Dose: 10 ml Sodium Chloride (Sodium Chloride 3%) 4 ml INH Q4H [facility] Discontinued Medications Acetylcysteine (Mucomyst 20%) 800 mg NEB BIDRT [facility] Last Admin: 03/21/19 05:44 Dose: 800 mg Albuterol/Ipratropium (Duoneb 3.0-0.5 Mg/3 Ml) 3 ml NEB Q4HRRT [facility] Last Admin: 03/22/19 17:49 Dose: 3 ml Budesonide (Pulmicort) 0.5 mg NEB BIDRT [facility] Last Admin: 03/23/19 06:25 Dose: 0.5 mg Furosemide (Lasix) 40 mg IVPUSH NOW ONE Stop: 03/20/19 21:24 Last Admin: 03/20/19 22:57 Dose: 40 mg Guaifenesin (Robitussin) 200 mg PO Q8H [facility] Last Admin: 03/21/19 08:21 Dose: 200 mg Magnesium Sulfate 4 gm/ Premix 50 mls @ 12.5 mls/hr IV ONETIME ONE Stop: 03/21/19 13:59 Last Admin: 03/21/19 13:03 Dose: 12.5 mls/hr Levalbuterol HCl (Xopenex) 1.25 mg NEB ONETIME ONE Stop: 03/20/19 19:46 Last Admin: 03/20/19 20:24 Dose: 1.25 mg Levalbuterol HCl (Xopenex) 1.25 mg NEB Q6HRRT [facility] Last Admin: 03/22/19 21:01 Dose: 1.25 mg Levalbuterol HCl (Xopenex) Confirm Administered Dose 1.25 mg .ROUTE .STK-MED ONE Stop: 03/23/19 03:25 Last Admin: 03/23/19 03:31 Dose: Not Given Lorazepam (Ativan) 0.25 mg IVPUSH ONETIME ONE Stop: 03/21/19 07:17 Last Admin: 03/21/19 08:17 Dose: 0.25 mg Meropenem (Merrem) gm IV Q12H [facility] Methylprednisolone Sodium Succinate (Solu-Medrol) 40 mg IVPUSH Q6H [facility] Last Admin: 03/23/19 09:00 Dose: 40 mg Non-Formulary Medication (Fluticasone/Salmeterol) 1 puff PO BID [facility] Oral Electrolytes (Thermotabs) 2 each PO TID [facility] Last Admin: 03/22/19 20:20 Dose: 2 each Tobramycin/Nebulizer 300 Mg/5 Ml Pack Ptom 0 each INH Q12H [facility] Last Admin: 03/22/19 09:08 Dose: 1 each Sodium Polystyrene Sulfonate (Kayexalate) 15 gm PO Q6H [facility] Stop: 03/23/19 15:01 Last Admin: 03/23/19 10:09 Dose: 15 gm - Exam Quality Assessment: Supplemental Oxygen General: Alert, Oriented HEENT: Pupils Equal Lungs: Decreased Breath Sounds, Wheezing Cardiovascular: Regular Rhythm, Tachycardia, Murmurs GI/Abdominal Exam: Normal Bowel Sounds, Soft, Non-Tender, No Distention Extremities: Normal Inspection, Normal Range of Motion, Non-Tender, No Pedal Edema Skin: Warm, Dry Psy/Mental Status: Alert, Normal Affect, Normal Mood - Problem List Review Problem List Initiated/Reviewed/Updated: Yes - My Orders Last 24 Hours: My Active Orders 03/22/19 19:01 Levalbuterol HCl [Xopenex] 1.25 mg NEB Q2H PRN 03/22/19 19:03 RT Post Treatment Assessment [RC] Click to Edit RT Pre-Treatment Assessment [RC] Click to Edit 03/22/19 19:04 Acetaminophen [Tylenol] 650 mg PO Q4H PRN 03/22/19 21:00 Ipratropium [Atrovent] 0.5 mg NEB Q6HRRT 03/22/19 22:00 Patient's Own Medication [Ptom] 1 each INH Q12H 03/23/19 08:57 OT Evaluation and Treatment [CONS] Routine PT Evaluation and Treatment [CONS] Routine 03/23/19 08:59 Consult to Physical Therapy [PT Evaluation and Treatment] [CONS] Routine 03/23/19 09:00 Levalbuterol HCl [Xopenex] 1.25 mg NEB Q6HRRT 03/23/19 15:00 Budesonide [Pulmicort] 0.5 mg NEB BID@1500,0300 03/23/19 15:31 CXR [Chest 1V Frontal] [CR] Routine 03/23/19 16:00 Sodium Chloride 3% 4 ml INH Q4H 03/23/19 17:00 BASIC METABOLIC PANEL,BMP [CHEM] Timed methylPREDNISolone Sod Succ [Solu-MEDROL] 40 mg IVPUSH Q8H 03/24/19 05:11 CBC WITH AUTO DIFF [HEME] AM CMP [COMPREHENSIVE METABOLIC PN,CMP] [CHEM] AM MAGNESIUM [CHEM] AM 03/24/19 09:00 predniSONE 40 mg PO DAILY 03/25/19 05:11 CBC WITH AUTO DIFF [HEME] AM CMP [COMPREHENSIVE METABOLIC PN,CMP] [CHEM] AM MAGNESIUM [CHEM] AM - Plan Plan:: End stage chronic obstructive pulmonary disease COPD exacerbation Acute on chronic hypercapnic respiratory failure Recurrent admits for exacerbations, 3 in the past 2 months On Inhaled tobramycin Pending to complete meropenem treatment for pneumonia 2/2 pseudomonas - per Dr. Basilio GAMA pCO2 57.4 on BiPAP, but 62 off BiPAP PLAN - hypertonic saline nebulizers every 4 hours - Tessalon Perles 100 mg 3 times a day - Budesonide nebulizations twice a day - Guaifenesin 600 mg every 12 hours - Duo nebs every 4h - Solumedrol taper today and switch to PO tomorrow - BiPAP - 28/10 - Repeat ABG on BiPAP Anxiety - Dr. Perez consulted - Ativan to help with anxiety on BiPAP Sinus tachycardia - Related to Bronchodilators - Worse with activity, likely deconditioning worsening tachycardia Chronic kidney disease (CKD), stage III (moderate) Hyperkalemia (5.8) Thermotabs have a small amount of potassium PLAN - Lasix 40 mg PO am - Stop Thermotabs and fluid restriction - Kayexalate - Monitor urine output - Renally dosed medications - Avoid nephrotoxic agents as much as possible - Maintain balance close to neutral - Repeat BMP this afternoon Euvolemic hyponatremia - SIADH Na+ improved to 132 PLAN - CMP am - AM cortisol 34 - TSH nl Pseudomonas aeruginosa colonization On Inhaled tobramycin PROPHYLAXIS DVT- Lovenox GI- Not indicated CODE STATUS: FULL CODE DISPOSITION: Patient will be admitted for respiratory therapy with CPT and stabilization of respiratory status. PT/OT evaluation prior to dc.
[2019-03-23] MEDS: Sodium Chloride 3% Inhalation Soln 4 ML Neb INH SCH ×2 (16:21→21:07)
--- NOTE | 2019-03-23 16:42 | CR ---
Chest: Portable view of the chest was obtained. Comparison: Prior chest x-ray of 03/20/19. Lungs are hyperinflated compatible with emphysematous change. Heart size and mediastinum are within normal limits for portable technique. Lungs show no acute parenchymal change. Bony structures are grossly intact. Impression: 1. Emphysematous change. 2. Nothing acute is seen on portable chest x-ray. Diagnostic code #2
[2019-03-23] MEDS ORDERED: Magnesium Hydroxide 400 MG/5 ML Susp 30 ML Cup PO ONE (17:44)
[2019-03-23] MEDS: Levalbuterol HCl 1.25 MG/3 ML Neb NEB SCH (19:16)
[2019-03-23] MEDS ORDERED: Meropenem 1 GM SDV ONE (19:30)
[2019-03-23] MEDS ORDERED: Sodium Chloride 0.65% Nasal Spray 45 ML Bottle NAS PRN (19:53)
[2019-03-23] MEDS: Aspirin 81 MG Tab.Chew PO SCH (20:33)
[2019-03-23] MEDS: Simvastatin 20 MG Tab PO SCH (20:33)
[2019-03-23] MEDS: LORazepam 0.5 MG Tab PO PRN (21:48)
[2019-03-23] MEDS: Acetaminophen 325 MG Tab PO PRN (21:49)
[2019-03-24] MEDS: Sodium Chloride 3% Inhalation Soln 4 ML Neb INH SCH ×4 (00:32→12:35)
[2019-03-24] MEDS: methylPREDNISolone Sodium Succinate 40 MG/1 ML SDV IVPUSH SCH (01:42)
[2019-03-24] MEDS: Levalbuterol HCl 1.25 MG/0.5 ML Neb NEB SCH ×2 (02:59→08:47)
[2019-03-24] MEDS: Ipratropium 0.02% 0.5 MG/2.5 ML Neb Soln NEB SCH ×2 (02:59→08:47)
[2019-03-24] MEDS: Budesonide 0.5 MG/2 ML Neb Susp NEB SCH (02:59)
[2019-03-24] MEDS: LORazepam 0.5 MG Tab PO PRN (03:39)
[2019-03-24] MEDS: Enoxaparin 40 MG/0.4 ML Syringe SUBCUT SCH (08:16)
[2019-03-24] MEDS: Benzonatate 100 MG Cap PO SCH (08:16)
[2019-03-24] MEDS: guaiFENesin 600 MG Tab.ER PO SCH (08:16)
[2019-03-24] MEDS: Furosemide 40 MG Tab PO SCH (08:17)
[2019-03-24] MEDS ORDERED: Bisacodyl 10 MG Supp RECTAL ONE (09:00)
[2019-03-24] MEDS ORDERED: predniSONE 20 MG Tab PO SCH (09:00)
[2019-03-24 10:12] VITALS: BP 165/98; PULSE 110
[2019-03-24] MEDS: TOBRAMYCIN 300 MG/5 ML INH SCH (10:51)
--- NOTE | 2019-03-24 12:05 | PCM.DCSUM1 ---
Discharge Summary - Hospital Course HPI Initial Comments: This is a 79-year-old female with past medical history of advanced COPD who comes to the emergency department for severe shortness of breath. As per patient she was admitted and a [facility] on March 08 by plumbing inspector for pulmonary toileting. She stayed there for 4 days. Discharged on March 13 to complete meropenem course via PICC line this Tuesday. Patient has been receiving meropenem and nebulized tobramycin for Pseudomonas colonization. At the same time she was discharged on nebulized tobramycin however there was a delay in getting the treatment and she did not receive until yesterday, she has used a total of 2 doses. Today patient came in for the infusion of her antibiotics and suddenly couldn't catch her breath. This was present since the morning but got worse at that time. She also states that she's been feeling a lot of nasal congestion and flulike symptoms. She denies any fevers, chills, sweating, loss of consciousness, dizziness. Diagnosis: Stroke: No - Discharge Data Discharge Date: 03/24/19 Discharge Disposition: DC/Tfer to Acute Hospital 02 Condition: Poor - Referral to Home Health Primary Care Physician: Quique Meneses MD - Patient Summary/Data Consults: Consultations 03/21/19 13:15 Consult to Physician [CONS] Routine 03/21/19 13:17 Consult to Physician [CONS] Routine 03/23/19 08:57 OT Evaluation and Treatment [CONS] Routine PT Evaluation and Treatment [CONS] Routine 03/23/19 08:59 Consult to Physical Therapy [PT Evaluation and Treatment] [CONS] Routine Hospital Course: Patient was admitted and placed on IV steroids, every 4 DuoNeb, continued meropenem and nebulized tobramycin, and placed on a BiPAP. Initial blood gas before BiPAP: PH 7.29, PCO2 62.4, PO2 103, HCO3 29.2 on 3 L nasal cannula. On BiPAP with IPAP of 12 and EPAP of 6 pH improved to 7.33 with PCO2 of 57.4. Unfortunately, the patient continued to worsen every time her BiPAP was removed and this mornings blood gas on 2 L nasal cannula: PH 7.30 with a PCO2 of 70.4 and PO2 of 77. Today I spoke with her plumbing inspector Dr. Prater who recommended increasing her BiPAP settings to 15 of IPAP and starting hypertonic nebulized solution every 4 hours. He stated this does not work she would need to be transferred for intubation and possible bronchoscopy. She did get a good amount of discharge following the initial couple of hypertonic nebulizers. Unfortunately, this did not help her CO2 exchange. This morning she had increased work of breathing off of BiPAP and has become BiPAP dependent. [facility] ICU physician, Dr. Medel, was contacted who agreed to accept the patient in transfer for likely intubation and possible bronchoscopy. - Discharge Plan *PRESCRIPTION DRUG MONITORING PROGRAM REVIEWED*: Not Applicable *COPY OF PRESCRIPTION DRUG MONITORING REPORT IN PATIENT TETO: Not Applicable Home Medications: Home Meds Albuterol [Ventolin HFA] 2 puff INH QID PRN 02/12/15 [History] Calcium Carbonate/Vitamin D3 [Calcium 600 + Vit D Tablet] 500 mg PO BID [History] Cyanocobalamin (Vitamin B12) [Vitamin B12] 500 mcg PO BEDTIME 02/12/15 [History] Fluticasone/Salmeterol [Advair Diskus 250-50] 1 puff PO BID 02/12/15 [History] Furosemide [Lasix] 40 mg PO DAILY 02/12/15 [History] Pravastatin [Pravachol] 40 mg PO BEDTIME 02/12/15 [History] Ascorbate Calcium [Vitamin C] 500 mg PO DAILY 02/18/17 [History] Denosumab [Prolia] 1 injection SQ ASDIRECTED 02/18/17 [History] Estradiol [Vagifem] 10 mcg VAG ASDIRECTED 02/18/17 [History] diphenhydrAMINE [Benadryl] 25 mg PO BEDTIME PRN 02/18/17 [History] Aspirin 81 mg PO BEDTIME 02/07/19 [History] Glucosamine/Chondro Gonzales A [Cosamin DS] 2 each PO BEDTIME 02/07/19 [History] Hydrocortisone [Hydrocortisone 1% Crm] 30 gm TOP TID PRN 03/20/19 [History] Meropenem [Merrem] 1,000 ml IV Q12H 03/20/19 [History] Tobramycin/Nebulizer [Tobramycin Glenn 300 mg/5 ml] 300 mg INH Q12H 03/20/19 [ History] Oxygen Therapy Mode: BiPAP Oxygen Flow Rate (L/min): 3 Maintain SPO2% less than: 94 Maintain SpO2% greater than: 90 Patient Handouts: How to Use a Nebulizer, Adult, Chronic Obstructive Pulmonary Disease, Vcae-on-Guew, Urinary Tract Infection, Adult, [id number], Sepsis, Adult, Home Oxygen Use, Adult Forms: ED Department Discharge Referrals: Quique Meneses MD [Primary Care Provider] - Sushant Richmond MD [Ordering Only Provider] - 04/09/19 2:40 pm (at [facility] in [place] this is [place] time.) Jesse Prater MD [Ordering Only Provider] - 04/19/19 1:30 pm (with the nurse practitioner Jourdan at [facility] , This is for [place] time) - Discharge Summary/Plan Comment DC Time >30 min.: Yes Discharge Summary/Plan Comment: Transferred to [facility] in [place] ICU for respiratory failure secondary to hypercapnia and end-stage lung disease. Accepting physician Dr. Medel. She will be sent by ground ambulance with BiPAP. - General Info Date of Service: 03/24/19 Admission Dx/Problem (Free Text: Admission Diagnosis/Problem Admission Diagnosis/Problem Chronic obstructive pulmonary disease Subjective Update: Soraida is having more difficulty with respirations this morning. Wet non- productive cough. - Review of Systems General: Reports: Fatigue Pulmonary: Reports: Shortness of Breath, Sputum Cardiovascular: Reports: No Symptoms Gastrointestinal: Reports: No Symptoms - Patient Data Vitals - Most Recent: Last Vital Signs Temp 97.7 F 03/24/19 08:30 Pulse 110 H 03/24/19 08:33 Resp 24 H 03/24/19 08:30 BP 165/98 H 03/24/19 08:33 Pulse Ox 93 L 03/24/19 10:51 Weight - Most Recent: 136 lb 14.4 oz I&O - Last 24 hours: Intake & Output 03/23/19 03/24/19 03/24/19 22:59 06:59 14:59 Intake Total 960 650 120 Output Total 925 950 Balance 35 -300 120 Lab Results - Last 24 hrs: Laboratory Results - last 24 hr 03/23/19 03/23/19 03/23/19 Range/Units 14:10 17:45 17:55 WBC (3.98-10.04) K/mm3 RBC (3.98-5.22) M/mm3 Hgb (11.2-15.7) gm/dl Hct (34.1-44.9) % MCV (79.4-94.8) fl MCH (25.6-32.2) pg MCHC (32.2-35.5) g/dl RDW Std Deviation (36.4-46.3) fL Plt Count (182-369) K/mm3 MPV (9.4-12.3) fl Neut % (Auto) (34.0-71.1) % Lymph % (Auto) (19.3-51.7) % Humphreys % (Auto) (4.7-12.5) % Eos % (Auto) (0.7-5.8) Baso % (Auto) (0.1-1.2) % Neut # (Auto) (1.56-6.13) K/mm3 Lymph # (Auto) (1.18-3.74) K/mm3 Humphreys # (Auto) (0.24-0.36) K/mm3 Eos # (Auto) (0.04-0.36) K/mm3 Baso # (Auto) (0.01-0.08) K/mm3 Manual Slide Review Puncture Site Rt radial Rt radial ABG pH 7.28 L 7.34 L (7.35-7.45) ABG pCO2 73.1 H* 62.4 H (35.0-45.0) mmHg ABG pO2 95.0 74.0 L (80.0-100.0) mmHg ABG HCO3 33.5 H 33.1 H (22.0-26.0) meq/L ABG O2 Saturation 97.2 H 94.1 L (96.0-97.0) % ABG Base Excess 5.6 H 6.4 H (-2-2.0) Patrick Test Positive A-a Gradient 42 0 mmHg O2 Delivery Device Nasal cannula Bipap Oxygen Flow Rate 3.0 3.0 FiO2 32.00 32.00 (21.00-100.00) % PEEP 5.0 cmH20 Pressure Support 15.0 cmH2O Sodium 134 L (136-145) mEq/L Potassium 5.2 H (3.5-5.1) mEq/L Chloride 95 L (98-107) mEq/L Carbon Dioxide 34 H (21-32) mEq/L Anion Gap 10.2 (5-15) BUN 30 H (7-18) mg/dL Creatinine 1.0 (0.55-1.02) mg/dL Est Cr Clr Drug Dosing 42.94 mL/min Estimated GFR (MDRD) 53 (>60) mL/min BUN/Creatinine Ratio 30.0 H (14-18) Glucose 118 H (83-115) mg/dL Calcium 8.7 (8.5-10.1) mg/dL Magnesium (1.8-2.4) mg/dl Total Bilirubin (0.2-1.0) mg/dL AST (15-37) U/L ALT (14-59) U/L Alkaline Phosphatase (46-116) U/L Total Protein (6.4-8.2) g/dl Albumin (3.4-5.0) g/dl Globulin gm/dL Albumin/Globulin Ratio (1-2) 03/24/19 03/24/19 03/24/19 Range/Units 05:03 05:03 10:18 WBC 11.00 H (3.98-10.04) K/mm3 RBC 3.46 L (3.98-5.22) M/mm3 Hgb 10.3 L (11.2-15.7) gm/dl Hct 32.7 L (34.1-44.9) % MCV 94.5 (79.4-94.8) fl MCH 29.8 (25.6-32.2) pg MCHC 31.5 L (32.2-35.5) g/dl RDW Std Deviation 48.0 H (36.4-46.3) fL Plt Count 444 H (182-369) K/mm3 MPV 9.2 L (9.4-12.3) fl Neut % (Auto) 90.8 H (34.0-71.1) % Lymph % (Auto) 3.8 L (19.3-51.7) % Humphreys % (Auto) 5.1 (4.7-12.5) % Eos % (Auto) 0 L (0.7-5.8) Baso % (Auto) 0.0 L (0.1-1.2) % Neut # (Auto) 9.99 H (1.56-6.13) K/mm3 Lymph # (Auto) 0.42 L (1.18-3.74) K/mm3 Humphreys # (Auto) 0.56 H (0.24-0.36) K/mm3 Eos # (Auto) 0.00 L (0.04-0.36) K/mm3 Baso # (Auto) 0.00 L (0.01-0.08) K/mm3 Manual Slide Review Abnormal smear Puncture Site Rt radial ABG pH 7.30 L (7.35-7.45) ABG pCO2 70.4 H* (35.0-45.0) mmHg ABG pO2 77.0 L (80.0-100.0) mmHg ABG HCO3 33.5 H (22.0-26.0) meq/L ABG O2 Saturation 93.0 L (96.0-97.0) % ABG Base Excess 5.9 H (-2-2.0) Patrick Test Positive A-a Gradient 35 mmHg O2 Delivery Device Nasal cannula Oxygen Flow Rate 2.0 FiO2 28.00 (21.00-100.00) % PEEP cmH20 Pressure Support cmH2O Sodium 133 L (136-145) mEq/L Potassium 5.1 (3.5-5.1) mEq/L Chloride 95 L (98-107) mEq/L Carbon Dioxide 34 H (21-32) mEq/L Anion Gap 9.1 (5-15) BUN 28 H (7-18) mg/dL Creatinine 1.0 (0.55-1.02) mg/dL Est Cr Clr Drug Dosing 42.94 mL/min Estimated GFR (MDRD) 53 (>60) mL/min BUN/Creatinine Ratio 28.0 H (14-18) Glucose 110 (83-115) mg/dL Calcium 8.6 (8.5-10.1) mg/dL Magnesium 2.2 (1.8-2.4) mg/dl Total Bilirubin 0.3 (0.2-1.0) mg/dL AST 32 (15-37) U/L ALT 42 (14-59) U/L Alkaline Phosphatase 57 (46-116) U/L Total Protein 7.5 (6.4-8.2) g/dl Albumin 3.2 L (3.4-5.0) g/dl Globulin 4.3 gm/dL Albumin/Globulin Ratio 0.7 L (1-2) Med Orders - Current: Current Medications Acetaminophen (Tylenol) 650 mg PO Q4H PRN PRN Reason: Pain Last Admin: 03/23/19 21:49 Dose: 650 mg Aspirin (Aspirin) 81 mg PO BEDTIME [facility] Last Admin: 03/23/19 20:33 Dose: 81 mg Benzonatate (Tessalon Perles) 100 mg PO TID [facility] Last Admin: 03/24/19 08:16 Dose: 100 mg Budesonide (Pulmicort) 0.5 mg NEB BID@1500,0300 [facility] Last Admin: 03/24/19 02:59 Dose: 0.5 mg Diphenhydramine HCl (Benadryl) 25 mg PO BEDTIME PRN PRN Reason: Insomnia Enoxaparin Sodium (Lovenox) 40 mg SUBCUT DAILY [facility] Last Admin: 03/24/19 08:16 Dose: 40 mg Furosemide (Lasix) 40 mg PO DAILY [facility] Last Admin: 03/24/19 08:17 Dose: 40 mg Guaifenesin (Mucinex) 600 mg PO BID [facility] Last Admin: 03/24/19 08:16 Dose: 600 mg Meropenem 1 gm/ Sodium (Chloride) 50 mls @ 16.667 mls/hr IV Q12H [facility] Last Admin: 03/24/19 08:15 Dose: 16.667 mls/hr Ipratropium Sutton (Atrovent) 0.5 mg NEB Q6HRRT [facility] Last Admin: 03/24/19 08:47 Dose: 0.5 mg Levalbuterol HCl (Xopenex) 1.25 mg NEB Q2H PRN PRN Reason: Wheezing Levalbuterol HCl (Xopenex) 1.25 mg NEB Q6HRRT [facility] Last Admin: 03/24/19 08:47 Dose: 1.25 mg Lorazepam (Ativan) 0.5 mg PO Q4H PRN PRN Reason: Anxiety Last Admin: 03/24/19 03:39 Dose: 0.5 mg Ondansetron HCl (Zofran) 4 mg IVPUSH Q4H PRN PRN Reason: Nausea Last Admin: 03/22/19 13:51 Dose: 4 mg Tobramycin Neb 300 (Mg/5 Ml Ptom) 1 each INH Q12H [facility] Last Admin: 03/24/19 10:51 Dose: 1 each Prednisone (Prednisone) 40 mg PO DAILY [facility] Last Admin: 03/24/19 08:16 Dose: 40 mg Simvastatin (Zocor) 20 mg PO BEDTIME [facility] Last Admin: 03/23/19 20:33 Dose: 20 mg Sodium Chloride (Saline Flush) 10 ml FLUSH ASDIRECTED PRN PRN Reason: Keep Vein Open Last Admin: 03/20/19 19:44 Dose: 10 ml Sodium Chloride (Sodium Chloride 3%) 4 ml INH Q4H [facility] Last Admin: 03/24/19 08:47 Dose: 4 ml Sodium Chloride (Tama Nasal [place]) 0 ml MICHELLE BID PRN PRN Reason: nasal congestion Discontinued Medications Acetylcysteine (Mucomyst 20%) 800 mg NEB BIDRT [facility] Last Admin: 03/21/19 05:44 Dose: 800 mg Albuterol/Ipratropium (Duoneb 3.0-0.5 Mg/3 Ml) 3 ml NEB Q4HRRT [facility] Last Admin: 03/22/19 17:49 Dose: 3 ml Bisacodyl (Dulcolax) 10 mg RECTAL ONETIME ONE Stop: 03/24/19 09:01 Last Admin: 03/24/19 08:19 Dose: 10 mg Budesonide (Pulmicort) 0.5 mg NEB BIDRT [facility] Last Admin: 03/23/19 06:25 Dose: 0.5 mg Furosemide (Lasix) 40 mg IVPUSH NOW ONE Stop: 03/20/19 21:24 Last Admin: 03/20/19 22:57 Dose: 40 mg Guaifenesin (Robitussin) 200 mg PO Q8H [facility] Last Admin: 03/21/19 08:21 Dose: 200 mg Magnesium Sulfate 4 gm/ Premix 50 mls @ 12.5 mls/hr IV ONETIME ONE Stop: 03/21/19 13:59 Last Admin: 03/21/19 13:03 Dose: 12.5 mls/hr Levalbuterol HCl (Xopenex) 1.25 mg NEB ONETIME ONE Stop: 03/20/19 19:46 Last Admin: 03/20/19 20:24 Dose: 1.25 mg Levalbuterol HCl (Xopenex) 1.25 mg NEB Q6HRRT [facility] Last Admin: 03/23/19 19:16 Dose: Not Given Levalbuterol HCl (Xopenex) Confirm Administered Dose 1.25 mg .ROUTE .STK-MED ONE Stop: 03/23/19 03:25 Last Admin: 03/23/19 03:31 Dose: Not Given Lorazepam (Ativan) 0.25 mg IVPUSH ONETIME ONE Stop: 03/21/19 07:17 Last Admin: 03/21/19 08:17 Dose: 0.25 mg Magnesium Hydroxide (Milk Of Magnesia) 30 ml PO ONETIME ONE Stop: 03/23/19 17:45 Last Admin: 03/23/19 20:35 Dose: 30 ml Meropenem (Merrem) gm IV Q12H [facility] Meropenem (Merrem) Confirm Administered Dose 1 gm .ROUTE .STK-MED ONE Stop: 03/23/19 19:31 Last Admin: 03/24/19 02:22 Dose: Not Given Methylprednisolone Sodium Succinate (Solu-Medrol) 40 mg IVPUSH Q6H [facility] Last Admin: 03/23/19 09:00 Dose: 40 mg Methylprednisolone Sodium Succinate (Solu-Medrol) 40 mg IVPUSH Q8H [facility] Stop: 03/24/19 01:01 Last Admin: 03/24/19 01:42 Dose: 40 mg Non-Formulary Medication (Fluticasone/Salmeterol) 1 puff PO BID [facility] Oral Electrolytes (Thermotabs) 2 each PO TID [facility] Last Admin: 03/22/19 20:20 Dose: 2 each Tobramycin/Nebulizer 300 Mg/5 Ml Pack Ptom 0 each INH Q12H [facility] Last Admin: 03/22/19 09:08 Dose: 1 each Sodium Polystyrene Sulfonate (Kayexalate) 15 gm PO Q6H [facility] Stop: 03/23/19 15:01 Last Admin: 03/23/19 16:08 Dose: 15 gm - Exam Quality Assessment: Reports: Supplemental Oxygen General: Reports: Alert, Oriented HEENT: Reports: Pupils Equal Neck: Reports: Supple Lungs: Reports: Decreased Breath Sounds, Wheezing Cardiovascular: Reports: Regular Rhythm, Tachycardia GI/Abdominal Exam: Normal Bowel Sounds, Soft, Non-Tender, No Organomegaly, No Distention, No Abnormal Bruit, No Mass, Pelvis Stable Extremities: Normal Inspection, Normal Range of Motion, Non-Tender, No Pedal Edema, Normal Capillary Refill Psy/Mental Status: Reports: Alert, Normal Affect, Normal Mood
== END 2019-03-24 13:48 | DRG 189 ==
LOC: JD.ED 18:33 → INTOOBSV 22:05 → JD.MS 22:05 → OBSVTOIN 03-21 20:26
PROVIDERS: ADMIT Internal Medicine; ATTEND Internal Medicine
PROC: 5A09457 Assistance with Respiratory Ventilation, 24-96 Consecutive Hours, Continuous Positive Airway Pressure (ICD-10-PCS; principal; 2019-03-22)
DX: J96.22 Acute and chronic respiratory failure with hypercapnia (principal); J15.1 Pneumonia due to Pseudomonas; J44.1 Chronic obstructive pulmonary disease with (acute) exacerbation; E87.2 Acidosis; I13.0 Hypertensive heart and chronic kidney disease with heart failure and stage 1 through stage 4 chronic kidney disease, or unspecified chronic kidney disease; J44.0 Chronic obstructive pulmonary disease with (acute) lower respiratory infection; I50.30 Unspecified diastolic (congestive) heart failure; E78.00 Pure hypercholesterolemia, unspecified; Z87.01 Personal history of pneumonia (recurrent); N39.41 Urge incontinence; G25.81 Restless legs syndrome; M85.80 Other specified disorders of bone density and structure, unspecified site; E22.2 Syndrome of inappropriate secretion of antidiuretic hormone; N18.3 Chronic kidney disease, stage 3 (moderate); R00.0 Tachycardia, unspecified; E87.5 Hyperkalemia; F41.0 Panic disorder [episodic paroxysmal anxiety]; F41.9 Anxiety disorder, unspecified; E78.5 Hyperlipidemia, unspecified; Z22.39 Carrier of other specified bacterial diseases; Z99.81 Dependence on supplemental oxygen; Z91.040 Latex allergy status; Z88.5 Allergy status to narcotic agent; Z88.1 Allergy status to other antibiotic agents; Z79.899 Other long term (current) drug therapy; Z90.49 Acquired absence of other specified parts of digestive tract; Z90.710 Acquired absence of both cervix and uterus; Z79.82 Long term (current) use of aspirin; Z87.891 Personal history of nicotine dependence; Z88.8 Allergy status to other drugs, medicaments and biological substances; Z79.51 Long term (current) use of inhaled steroids; Z87.440 Personal history of urinary (tract) infections
CPT/HCPCS: 36415 ×2; 36600 ×2; 71045; 80048; 80053; 81001; 82533; 82803 ×2; 83605 ×2; 83735 ×2; 83880; 83930; 83935; 84100; 84300; 84443; 84484; 85025; 85027; 86140; 87086; 87804 ×2; 93005; 94640 ×7; 94660; 94668 ×2; 99285; A9270 ×6; J1650; J1940; J2060; J2185; J2920; J3475; J7050; 93010; 94761; 97162-GP; 97165-GO; 97530-GO; 99219; 99232; 99239; J2405; J7612-GY; J7620-GY; Q3014